=== PATIENT | female | born 1960 | race Caucasian/White ===

== ENCOUNTER 2024-06-14 09:41 | Outpatient (AMB) | payer MEDICARE, OTHER, SELFPAY ==
--- NOTE | 2024-06-14 10:08 | A.OFFVIS_ITS ---
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 The patient injured her shoulder last month when her mother fell onto her. Since that time she has had difficulty lifting her left hand to shoulder height. She has tried physical therapy exercises which aggravated her pain. She has also tried Tylenol and anti-inflammatory medicines which gave her minimal relief. Allergies adhesive tape [ADHESIVE TAPE] Allergy (Intermediate, Unverified 06/14/24 10:13) SKIN SENSITIVITY bupropion [From WELLBUTRIN] Allergy (Intermediate, Unverified 06/14/24 10:13) HIVES ciprofloxacin [From CIPRO] Allergy (Intermediate, Unverified 06/14/24 10:13) ACTIVATES LYCHENS DISEASE metoclopramide [From REGLAN] Allergy (Intermediate, Unverified 06/14/24 10:13) HIVES nizatidine [From AXID] Allergy (Intermediate, Unverified 06/14/24 10:13) HIVES ranitidine [From ZANTAC] Allergy (Intermediate, Unverified 06/14/24 10:13) HIVES sulfamethoxazole [From BACTRIM] Allergy (Intermediate, Unverified 06/14/24 10:13) CONNOLLY ARCENIO SYNDROME trimethoprim [From BACTRIM] Allergy (Intermediate, Unverified 06/14/24 10:13) CONNOLLY ARCENIO SYNDROME ALLEN Allergy (Intermediate, Uncoded 06/14/24 10:13) HIVES Medication List - Last Reconciled 06/14/24 by Roger Daley MD clobetasol 0.025% 1 appl topical ONCE hydroxychloroquine 200 mg PO DAILY irbesartan 75 mg PO DAILY naloxegol (Movantik) 12.5 mg PO DAILY pantoprazole 40 mg PO DAILY perfluorohexyloctane (PF) 100% (Miebo (PF)) drps ophthalmic (eye) topiramate 100 mg PO DAILY varenicline tartrate (Tyrvaya) intranasal Physical Exam Vital Signs: BMI result Body Mass Index 38.1 Const Other: Well-nourished well-developed very friendly female awake alert and oriented x3 in no acute distress Extrem Other: Bilateral upper extremity examination shows good capillary refill, no skin lesions noted, normal sensation light touch Left shoulder examination shows decreased active range of motion but almost full passive range of motion when compared to her right shoulder, 3/5 strength with supraspinatus testing, positive impingement signs, tenderness over her acromioclavicular joint, no instability Results Reviewed Results Reviewed: MRI of the patient's left shoulder show severe acromioclavicular joint narrowing, a type 3 acromion, a full-thickness supraspinatus tendon tear Assessment & Plan Assessment & Plan (1) Rotator cuff insufficiency of left shoulder: Code(s): M25.312 - Other instability, left shoulder Category: Medical Plan Ms. Martin Holland presents with progressively worsening left shoulder pain and weakness due to impingement syndrome, acromioclavicular joint arthritis and a full-thickness rotator cuff tear. I had a lengthy discussion with the patient regarding the treatment options. At this point the patient has failed continued non operative treatments. The risks and benefits of left shoulder surgery were discussed at length with the patient. The patient wishes to proceed with surgery. Surgery will involve left shoulder distal clavicle excision, acromioplasty and rotator cuff repair. The patient will be scheduled for next available date. She will follow up as instructed. Feel free to call me at any time should questions regarding her orthopedic management arise. I spent 21 minutes in reviewing the patient's records and imaging studies, seeing the patient and documenting in the medical record. Coding Level of Care Code New Pt Level 3 (35728) Complex EM visit Add On G2211 Diagnoses Rotator cuff insufficiency of left shoulder M25.312
[2024-06-14 10:12] VITALS: BMI 38.1
--- OUTSIDE RECORDS SUMMARY | 2024-06-14 10:53 | XMS_ITS | Patient Health Record ---
Author Organization [facility] Address [address] [address] Care Team Providers Care Poundmaster Name Role Phone Joan Powers MD Primary Care Provider Unavail able Black, Roxane Unavailable [phone] Allergies Allergen (clinical drug ingredient) Drug/Non Drug Allergy documented on EMR Reaction Allergy Type Onset Date Status Axid Unknown Drug Allergy Active sulfamethoxazole / trimethoprim Bactrim Unknown Drug Allergy Active ciprofloxacin Cipro Unknown Drug Allergy Act ifrah metoclopramide Reglan Unknown Drug Allergy Ac tive Wellbutrin Unknown Drug Allergy Active Zantac Unknown Drug Allergy Active Adhesive Unknown Allergy Active Reason For Referral No Information Medications Medication SIG (Take, Route, Frequency, Duration) Notes Start Date End Date Status Physical Therapy . . . 2-3x/week for 3-4 weeks 06/03/2016 Not-Taking Topamax Not-Taking Linzess 145 MCG Orally Not- Taking Gabapentin 300 MG 1 capsule Orally Three times a day 04/28/2016 Not-Taking ProAir HFA Not-Takin g Reclast Not-Taking Prolia Not-Taking Plaquenil Not-Taking Vitamin D3 Active Calcium Active Ibuprofen 800 MG 1 tablet Orally Three times a day for 14 days 01/06/2016 Not-Taking Hydrocortisone 1 % 1 application to affected area Externally Twice a day to affected areas on feet for 30 days 02/19/2016 Not-Taking Ciclopirox Olamine 0.77% external Apply to effected areas twice a day for 30 days 04/01/2016 Not-Taking Movantik 12.5 MG 1 tablet in the morning Orally Once a day for 30 day(s) Active Vicodin 5-300 MG 1 tablet as needed Orally every 6 hrs 01/06/2016 Not-Taking Hydroxychloroquine Sulfate 200 MG as directed Orally Active Amitiza 24 MCG 1 capsule with food Orally Twice a day Not-Taking Physical Therapy . . . 2-3x/week for 3-4 weeks 02/26/2016 Not-Taking Albuterol Sulfate Ac tive Linaclotide 290 MCG 1 capsule Orally Once a day Not-Taking Arnuity Ellipta Acti ve Osphena 60 MG 1 tablet with food Orally Once a day Not-Taking Topiramate 100 MG 1 tablet Orally Once a day for 30 day(s) Active Nortriptyline HCl 10 MG as directed Orally Active Mitigare 0.6 MG 1 capsule Orally Once a day Not-Taking Walking Boot/Pneumatic As directed Wear Daily for Until further notice 01/16/2016 Not-Taking Vitamin D Not-Taking Social History Tobacco Use: Social History Observation Description Date Details (start date - stop date) Never Smoker NA - NA Tobacco Use/Smoking Question Answer Notes Are you a: nonsmoker Additional Findings: Tobacco Non-User Current no n-smoker Alcohol Screen Question Answer Notes Did you have a drink contain ing alcohol in the past year? Yes How often did you have a dri nk containing alcohol in the past year? Monthly or less (1 point) Points 1 Interpretation Negative Tobacco use other than smoking: Question Answer Notes Are you an other tobacco user? 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) CRPS (complex regional pain syndrome) (G90.50) Active confirmed Plan Of Treatment Pending Test Test Name Order Date X ray : Foot, right 3V 02/19/2016 X ray : Foot, right 3V 04/01/2016 X ray : Foot, right 3V 07/22/2016 X ray : Foot, right 3V 07/23/2021 X ray : Foot, right 3V 08/17/2021 [id number] Plate 07/22/2016 [id number] TENDON SHEATH/LIGAMENT 0 06/17/2016 Insurance Providers Payer Name Payer Address Payer Phone Subscriber Number Group Number Insured Name Patient Relationship to Insured Coverage Start Date Coverage End Date Medicare National [employer] [address] [place] [address] [id number] Salazar KailashHazel andersenn Self - patient is the insured [employer] [address] [address] [place] [address] [id number] SalazarHazel Ervinn Self - patient is the insured Medical (General) History Medical History History ICD Code asthma Hiatal hernia Neuropathy Reflux Sciatica Measles Sleep apnea Anxiety Headaches/Migraines Lyme disease Osteopenia FMF Dysmotility dyskinesia 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
--- OUTSIDE RECORDS SUMMARY | 2024-06-14 10:53 | XMS_ITS | Clinical Summary ---
Author Organization [facility] Address [address] [place] [address] Care Team Providers Care Computer Information Systems Instructor Name Role Phone Joan Powers MD Primary Care Provider [phone] Surgical History Surgery Date Site/Laterality Comments APPENDECTOMY PROCEDURE: AK APPENDECTOMY BUNIONECTOMY PROCEDURE: BUNION SURGERY, SIMPLE REMOVAL OTHER SURGICAL HISTORY PROCEDURE: AK LAPS SURG GASTROSTOMY W/O CONSTJ GSTR TUBE SPX CARPAL TUNNEL RELEASE PROCEDURE: HISTORICAL CARPAL TUNNEL REL HERNIA REPAIR PROCEDURE: HISTORICAL HERNIA REPAIR/FRANCINE ROTATOR CUFF REPAIR PROCEDURE: HISTORICAL ROTATOR CUFF REPAIR Medical History Medical History Date Comments Laryngospasm DX:Laryngospasm Headache, migraine DX:Headache, migraine Asthma DX:Asthma 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 ([facility] V24, [facility] V28) DX: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 ease ([facility]) Bronchitis DX:Bronchitis Vitamin D deficiency DX:Vitamin D deficiency CKD (chronic kidney disease) DX: CKD (chronic kidney disease) Social History Tobacco Use Types Packs/Day Years Used Date Smoking Tobacco: Never Smokeless Tobacco: Never Alcohol Use Standard Drinks/Week Comments No 0 (1 standard drink = 0.6 oz pur e alcohol) Comments Unknown Sex and Gender Information Value Date Recorded Sex Assigned at Not on file Legal Sex Female 4:03 PM EST Gender Identity Not on file Sexual Orientation Not on file Obstetrics History Plan of Treatment Health Maintenance Due Date Last Done Comments Breast Cancer Screening 1958 DTaP,Tdap,and Td Vaccines (1 - Tdap) 1977 Cervical Cancer Screening: P ap Smear 10/23/1979 Pneumococcal Vaccine: 50+ Ye ars (1 of 1 - PCV) 2008 Zoster Vaccines (1 of 2) 2008 Colorectal Cancer Screening: Colonoscopy 02/03/2022 Depression Screening 02/03/2022 Hepatitis C Screening 02/03/2022 Osteoporosis Screening (Bone Density Screening) 02/03/2022 Social Influencers of Health Screening 02/03/2022 Falls Risk Assessment 10/23/2023 COVID-19 Vaccine (1 - 2023-2 5 season) 2023 Influenza Vaccine (Season Ended) 2024 RSV Immunization Adult Patie nts (1 - 1-dose 75+ series) 2033 HIB Vaccines Aged Out No longer eligi ble based on patient's age to complete this topic HPV Vaccines Aged Out No longer eligi ble based on patient's age to complete this topic Hepatitis A Vaccines Aged Out No long er eligible based on patient's age to complete this topic Hepatitis B Vaccines Aged Out No long er eligible based on patient's age to complete this topic IPV Vaccines Aged Out No longer eligi ble based on patient's age to complete this topic MMR Vaccines Aged Out No longer eligi ble based on patient's age to complete this topic Meningococcal ACWY Vaccine Aged Out N o longer eligible based on patient's age to complete this topic Meningococcal B Vaccine Aged Out No l onger eligible based on patient's age to complete this topic Pneumococcal Vaccine: Pediat rics (0 to 5 Years) and At-Risk Patients (6 to 64 Years) Aged Out No longer eligible b ased on patient's age to complete this topic RSV Immunization Patients Un angeli 20 months Aged Out No longer eligible b ased on patient's age to complete this topic Varicella Vaccines Aged Out No longer eligible based on patient's age to complete this topic Advance Directives Documents on File Type Date Recorded 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
--- OUTSIDE RECORDS SUMMARY | 2024-06-14 10:54 | XMS_ITS ---
Author Name [facility] Organization Unknown Encounters Encounter Type Encounter Reason Primary Diagnosis Location Date Ambulatory [facility] [place] 06/08/2024 Ambulatory [facility] [place] 06/08/2024 Ambulatory [facility] [place] 06/08/2024 Ambulatory [facility] [place] 06/08/2024
--- OUTSIDE RECORDS SUMMARY | 2024-06-14 10:54 | XMS_ITS | Clinical Summary ---
Author Organization [facility] Address [address] [place] [phone] Phone Care Team Providers Care Proc Tech Name Role Phone Oscar Powers MD Primary Care Provider [phone] Allergies Active Allergy Reactions Criticality Noted Date Comments Nizatidine Hives 12/21/2022 Ciprofloxacin 12/21/2022 Metoclopramide Hcl Hives 12/21/2022 Sulfa (Sulfonamide Antibiotics) 12/05 Bupropion Hcl Hives 12/21/2022 Ranitidine Hcl Hives 12/21/2022 Medications Medication Sig Dispensed Refills Start Date End Date Status ramipriL (ALTACE) 2.5 MG capsule Take 1 capsule by mouth daily. 12/20/2022 Active topiramate (TOPAMAX) 100 MG tablet Take 1 tablet by mouth every morning. 12/07/2022 Active TYRVAYA 0.03 mg/spray sprm ONE SPRAY INTO EACH NOSTRIL TWICE A DAY 10/20/2022 Active MOVANTIK 12.5 mg tablet Take 12.5 mg by mouth every morning. 12/07/2022 Active albuterol 90 mcg/actuation inhaler Inhale 2 puffs into the lungs every 6 (six) hours as needed for wheezing. Active fluticasone furoate (ARNUITY ELLIPTA INHL) Inhale into the lungs. Active cholecalciferol (VITAMIN D3) 3,000 unit tablet Take 6,000 Units by mouth daily. Active acetaminophen (TYLENOL) 500 MG tablet Take 500 mg by mouth every 6 (six) hours as needed for pain (specific location in comments). Active hydroxychloroquine (PLAQUENIL) 200 mg tabletIndications:Fami lial Mediterranean fever TAKE 1 TABLET BY MOUTH EVERY MORNING. 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 Eye exams current and normal. She has no active symptoms. Reviewed labs from December 20 with a normal creatinine hemoglobin of 13.5 and a normal vitamin D. Primary osteoarthritis involving multiple joints 01/11/2023 Assessment & Plan (01/17/2023 1:45 PM EST): Osteoarthritis in multiple joints with stiffness but no swelling. She can continue with Tylenol 500 mg as needed. Advised her to remain active to maintain her stamina and mobility. Encounters Date Type Department Care Team Description 03/20/2024 Refill [facility] Rheumatology [address] [place] [address] Toni Jennings MD Medication Refill from Last 3 Months Family History Medical History Relation Comments Thyroid disease Father Relation Status Comments Father Social History Tobacco Use Types Packs/Day Years Used Date Smoking Tobacco: Never Smokeless Tobacco: Never Tobacco Cessation:Counseling Given: Not Answered Alcohol Use Standard Drinks/Week Comments Not Currently 0 (1 standard drink = 0.6 oz pur e alcohol) rarely Education Answer Date Recorded Are you interested in more education? Not on kenny e 09/21/2022 Are you concerned about learning? Not on file 09/21/2022 No 09/21/2022 No 09/21/2022 Digital Access Answer Date Recorded No 09/21/2022 No 09/21/2022 Reliable internet access at home? Not on file 09/21/2022 Device with a working camera? Not on file Sex and Gender Information Value Date Recorded Sex Assigned at Not on file Gender Identity Not on file Sexual Orientation Not on file Last Filed Vital Signs Vital Sign Reading Time Taken Comments Blood Pressure 118/66 01/11/2023 2:08 PM EST Pulse 82 01/11/2023 2:08 PM EST Temperature - - Respiratory Rate - - Oxygen Saturation 98% 01/11/2023 2:08 PM EST Inhaled Oxygen Concentration - - Weight 65.8 kg (145 lb) 01/11/2023 2:08 PM EST Height 152 cm (4' 11.84 ) 01/11/2023 2:08 PM EST Body Mass Index 28.47 01/11/2023 2:08 PM EST Plan of Treatment Upcoming Encounters Date Type Department Care Team (Late st Contact Info) Description 06/18/2024 2:00 PM EDT Office Visit [facility] Rheumatology [address] [place] [address] Rodolfo Burt MD [address] [place] [address] [email or web address] Health Maintenance Due Date Last Done Comments Adult Td,Tdap Booster 1960 CREATININE LEVEL 1958 LIPID PANEL 1958 POTASSIUM LEVEL 1958 DEPRESSION SCREENING 1970 HEPATITIS C SCREENING 1976 HIV ONE-TIME SCREENING (18-6 5 YEARS) 1976 SCREENING FOR DIABETES 1993 MAMMOGRAM 1998 COLOGUARD 10/23/2003 COLONOSCOPY 10/23/2003 COLORECTAL CANCER SCREENING 10/23/2003 FIT TEST 10/23/2003 FOBT 10/23/2003 SIGMOIDOSCOPY 10/23/2003 VIRTUAL COLONOSCOPY 10/23/2003 PNEUMOCOCCAL VACCINES (50+ years) (1 of 1 - PCV) 2008 ZOSTER VACCINES (1 of 2) 2008 INFLUENZA VACCINE (#1) 2023 3, 01/25/2022, 12/10/2019 OSTEOPOROSIS SCREENING INITI AL (ONE-TIME) 10/23/2023 COVID-19 VACCINE (4 - 2023-2 5 season) 2023 02/17/2021, 05/18/2020, 04/20/2020 RSV VACCINE (1 - 1-dose 75+ series) 2033 SMOKING STATUS SCREENING (On ce After 26 Yrs) Completed 01/11/2023 HEPATITIS A VACCINES Aged Out No long er eligible based on patient's age to complete this topic HIB VACCINES Aged Out No longer eligi ble based on patient's age to complete this topic MENINGOCOCCAL VACCINES (ACWY) Aged Out No longer eligible based on patient's age to complete this topic Medical Devices Not on file Care Teams Proc Tech Relationship Specialty Start Date End Date Oscar Powers MD [address] [place] [id number] [email or web address] PCP - General Internal Medicine 09/21/22 Additional Source Comments The information contained in this document represents components of the legal health record. It is not the complete legal health record.[facility]
--- OUTSIDE RECORDS SUMMARY | 2024-06-14 10:54 | XMS_ITS | Patient Health Record ---
Author Organization [facility] Address [address] [place] [phone] Care Team Providers Care Procurement Engineer Name Role Phone Joan Jeffries Primary Care Provider Ella Olsen Unavailable [phone] Allergies Allergen (clinical drug ingredient) Drug/Non Drug Allergy documented on EMR Reaction Allergy Type Onset Date Status ciprofloxacin Cipro Unknown Drug Allergy Act ifrah metoclopramide Reglan Unknown Drug Allergy Ac tive Wellbutrin Unknown Drug Allergy Active Axid Unknown Drug Allergy Active ramipril Ramipril Cough Drug Allergy 03/09/2023 Active Sulfamethoxazole ?[place] Syndrome? Drug Allergy Active trimethoprim Trimethoprim ?[place]ons Syndrome? Drug Allergy Active Zinc Unknown Drug Allergy Inactiv e Results Component Value Reference Range Notes NM Bone and/or Joint Whole B kourtney Reviewed date:06/07/2024 01:27:45 PM Interpretation: Performing Lab: Notes/Report: Exam: NM Whole Body Bone Scan History: Multiple rib fractures Technique: Three hours following the intravenous administration of 25.2 mCi of Tc99m medronate, whole body imaging in the anterior and posterior views were performed. Additional lateral views of the skull, oblique views of the chest, and oblique views the pelvis were also performed. Comparison studies: None Findings: There is focal increased activity within the left mandible likely related to dental disease. Focal increased activity within the anterior cervical spine and bilateral shoulder joints suggesting degenerative changes. There is focal increased activity within the left anterior fourth rib suggesting acute fracture. Additional mild increased activity noted within the left anterior seventh rib suggesting subacute to chronic healed fracture. Mild increased activity within the facet joints and the L5-S1 level suggesting degenerative changes. Mild increased activity within the right hand medial right knee, left mid foot and right first metatarsophalangeal joint suggesting degenerative changes. IMPRESSION: Acute left anterior fourth rib fracture. Likely subacute to chronic healing left anterior seventh rib fracture. Degenerative changes. WSN: [id number] Ordering Physician: Joan Jeffries Dictated By: Clovis Childs MD Exam: NM Whole Body Bone Scan History: Multiple ri b fractures Technique: Three ubaldo rs following the intravenous administration of 25.2 mCi of Tc99m medronate, who le body imaging in the anterior and posterior views were performed. Additiona l lateral views of the skull, oblique views of the chest, and oblique views th e pelvis were also performed. Comparison studies: None Findings: There is focal incre ased activity within the left mandible likely related to dental disease. Focal increased acti vity within the anterior cervical spine and bilateral shoulder joints suggesting degenerative changes. There is focal increased activity within the left anterior fourth rib suggesting acute fracture. Additional mild incr eased activity noted within the left anterior seventh rib suggesting subacute to chronic healed fracture. Mild increased activ ity within the facet joints and the L5-S1 level suggesting degenerative changes . Mild increased activity within the right hand medial right knee, left mid foot and right first metatarsophalangeal joint suggesting degenerative changes. IMPRESSION: Acute left anterior fourth rib fracture. Likely subacute to chronic healing left anterior seventh rib fracture. Degenerative changes. WSN: [id number] Ordering Physician: Joan Jeffries Urinalysis, Complete-[id number] Reviewed date:12/28/2023 06:26:36 PM Interpretation: Performing Lab:Pasquale King, [address] [facility] [place], [place], Phone - [phone], Director - Becky Notes/Report: Specific [place] 1.020 1.005-1.030 pH 5.5 5.0-7.5 Urine-Color Yellow Yellow Appearance Clear Clear WBC Esterase Negative Negative Protein Negative Negative/Trace Glucose Negative Negative Ketones Negative Negative Occult Blood Negative Negative Bilirubin Negative Negative Urobilinogen,Semi-Qn 0.2 0.2-1.0 mg/dL Nitrite, Urine Negative Negative Microscopic Examination Micr oscopic follows if indicated. Microscopic Examination See below: Micr oscopic was indicated and was performed. WBC None seen 0 - 5 /hpf RBC 0-2 0 - 2 /hpf Epithelial Cells (non renal) 0-10 0 - 10 /hpf Casts None seen None seen /lpf Bacteria None seen None seen/Few Vitamin D, [id number] Reviewed date:12/28/2023 06:26:36 PM Interpretation: Performing Lab:Pasquale King, [address] [facility], Phone - [phone], Director - Becky Notes/Report: Vitamin D, 25-Hydroxy 49.2 30.0-100.0 ng/mL Vitamin D deficiency has been defined by the Walsh of Medicine and an Endocrine Society practice guideline as a level of serum 25-OH vitamin D less than 20 ng/mL (1,2). The Endocrine Society went on to further define vitamin D insufficiency as a level between 21 and 29 ng/mL (2). 1. IOM ([place] of Medicine). 2010. Dietary reference intakes for calcium and D. [place]: The National Academies Press. 2. Carla MF, Neri NC, Michelle MCLEOD, et al. Evaluation, treatment, and prevention of vitamin D deficiency: an Endocrine Society clinical practice guideline. JCEM. 2010; 96(7):1911-30. Albumin/Creatinine Ratio,Uri ne-[id number] Reviewed date:12/28/2023 06:26:36 PM Interpretation: Performing Lab:Pasquale King, [place] [facility], Phone - [phone], Director - Becky Notes/Report: Creatinine, Urine 139.8 Not Estab. mg/dL Albumin, Urine 6.1 Not Estab. ug/mL Alb/Creat Ratio 4 0-29 mg/g creat Normal: 0 - 29 Moderately increased: 30 - 300 Severely increased: >300 Comp. Metabolic Panel (14)-3 Reviewed date:12/28/2023 06:26:36 PM Interpretation: Performing Lab:[facility] Fernando, [address] [facility] [place], [place], Phone - [phone], Director - Becky Notes/Report: Glucose 97 70-99 mg/dL BUN 13 8-27 mg/dL Creatinine 0.88 0.57-1.00 mg/dL eGFR 73 >59 mL/min/1.73 BUN/Creatinine Ratio 15 12-28 Sodium 144 134-144 mmol/L Potassium 3.9 3.5-5.2 mmol/L Chloride 106 96-106 mmol/L Carbon Dioxide, Total 21 20-29 mmol/L Calcium 9.4 8.7-10.3 mg/dL Protein, Total 6.3 6.0-8.5 g/dL Albumin 4.4 3.9-4.9 g/dL Globulin, Total 1.9 1.5-4.5 g/dL Bilirubin, Total 0.3 0.0-1.2 mg/dL Alkaline Phosphatase 100 44-121 IU/L AST (SGOT) 21 0-40 IU/L ALT (SGPT) 20 0-32 IU/L LP+Non-HDL Cholesterol-[id number] 5 Reviewed date:12/28/2023 06:26:36 PM Interpretation: Performing Lab:Pasquale King, [address] [facility], Phone - [phone], Director - Bekcy Notes/Report: Cholesterol, Total 234 100-199 mg/dL Triglycerides 78 0-149 mg/dL HDL Cholesterol 78 >39 mg/dL VLDL Cholesterol Shay 13 5-40 mg/dL LDL Chol Calc (NIH) 143 0-99 mg/dL Non-HDL Cholesterol 156 0-129 mg/dL Urinalysis, Complete-[id number] Reviewed date:07/06/2023 08:08:49 AM Interpretation: Performing Lab:Pasquale King, [address] [facility], Phone - [phone], Director - Becky Notes/Report: Specific [place] 1.020 1.005-1.030 pH 5.5 5.0-7.5 Urine-Color Yellow Yellow Appearance Clear Clear WBC Esterase Negative Negative Protein Negative Negative/Trace Glucose Negative Negative Ketones Negative Negative Occult Blood Negative Negative Bilirubin Negative Negative Urobilinogen,Semi-Qn 0.2 0.2-1.0 mg/dL Nitrite, Urine Negative Negative Microscopic Examination Micr oscopic follows if indicated. Microscopic Examination See below: Micr oscopic was indicated and was performed. WBC None seen 0 - 5 /hpf RBC None seen 0 - 2 /hpf Epithelial Cells (non renal) None seen 0 - 10 /hpf Casts None seen None seen /lpf Bacteria None seen None seen/Few CBC With Differential/Platel et-[id number] Reviewed date:07/06/2023 08:08:49 AM Interpretation: Performing Lab:Pasquale King, [address] [facility] [place], [place], Phone - [phone], Director - Becky Notes/Report: WBC 6.8 3.4-10.8 x10E3/uL RBC 4.40 3.77-5.28 x10E6/uL Hemoglobin 13.8 11.1-15.9 g/dL Hematocrit 40.9 34.0-46.6 % MCV 93 79-97 fL MCH 31.4 26.6-33.0 pg MCHC 33.7 31.5-35.7 g/dL RDW 12.9 11.7-15.4 % Platelets 264 150-450 x10E3/uL Neutrophils 70 Not Estab. % Lymphs 22 Not Estab. % Monocytes 6 Not Estab. % Eos 1 Not Estab. % Basos 1 Not Estab. % Neutrophils (Absolute) 4.7 1.4-7.0 x10E3/uL Lymphs (Absolute) 1.5 0.7-3.1 x10E3/uL Monocytes(Absolute) 0.4 0.1-0.9 x10E3/uL Eos (Absolute) 0.1 0.0-0.4 x10E3/uL Baso (Absolute) 0.1 0.0-0.2 x10E3/uL Immature Granulocytes 0 Not Estab. % Immature Grans (Abs) 0.0 0.0-0.1 x10E3/uL Vitamin D, 04-Yonfpos-[id number] Reviewed date:07/06/2023 08:08:49 AM Interpretation: Performing Lab:[facility], [address] [place] [address], [place], Phone - [phone], Director - Becky Notes/Report: Vitamin D, 25-Hydroxy 42.2 30.0-100.0 ng/mL Vitamin D deficiency has been defined by the Walsh of Medicine and an Endocrine Society practice guideline as a level of serum 25-OH vitamin D less than 20 ng/mL (1,2). The Endocrine Society went on to further define vitamin D insufficiency as a level between 21 and 29 ng/mL (2). 1. IOM ([place] of Medicine). 2010. Dietary reference intakes for calcium and D. [place]: The National Academies Press. 2. Carla MF, Neri NC, Michelle MCLEOD, et al. Evaluation, treatment, and prevention of vitamin D deficiency: an Endocrine Society clinical practice guideline. JCEM. 2010; 96(7):1911-30. Comp. Metabolic Panel (14)-3 [id number] Reviewed date:07/06/2023 08:08:49 AM Interpretation: Performing Lab:[facility], [place] [facility], Phone - [phone], Director - Becky Notes/Report: Glucose 84 70-99 mg/dL BUN 13 8-27 mg/dL Creatinine 0.85 0.57-1.00 mg/dL eGFR 76 >59 mL/min/1.73 BUN/Creatinine Ratio 15 12-28 Sodium 142 134-144 mmol/L Potassium 4.2 3.5-5.2 mmol/L Specimen received hemolyzed. Value may be increased by hemolysis. Clinical correlation indicated. Chloride 105 96-106 mmol/L Carbon Dioxide, Total 22 20-29 mmol/L Calcium 9.4 8.7-10.3 mg/dL Protein, Total 6.6 6.0-8.5 g/dL Albumin 4.5 3.9-4.9 g/dL Globulin, Total 2.1 1.5-4.5 g/dL A/G Ratio 2.1 1.2-2.2 Bilirubin, Total 0.3 0.0-1.2 mg/dL Alkaline Phosphatase 93 44-121 IU/L AST (SGOT) 22 0-40 IU/L ALT (SGPT) 18 0-32 IU/L LP+Non-HDL Cholesterol-[id number] 5 Reviewed date:07/06/2023 08:08:50 AM Interpretation: Performing Lab:[facility] Fernando, [place] [facility], Phone - [phone], Director - Freddyy Notes/Report: Cholesterol, Total 252 100-199 mg/dL Triglycerides 79 0-149 mg/dL HDL Cholesterol 81 >39 mg/dL VLDL Cholesterol Shay 13 5-40 mg/dL LDL Chol Calc (NIH) 158 0-99 mg/dL Non-HDL Cholesterol 171 0-129 mg/dL HCV Antibody-[id number] Reviewed date:07/06/2023 08:08:50 AM Interpretation: Performing Lab:[facility] Fernando, [address] [facility] [place], [place], Phone - [phone], Director - Mahameddry Notes/Report: Hep C Virus Ab Non Reactive Non Reactive HCV antibody alone does not differentiate between previously resolved infection and active infection. Equivocal and Reactive HCV antibody results should be followed up with an HCV RNA test to support the diagnosis of active HCV infection. PDF Report Reviewed date:07/06/2023 08:08:50 AM Interpretation: Performing Lab:Pasquale King, [address] [facility] [place], [place], Phone - [phone], Director - Becky Notes/Report: MM Digital Mammo Screening Reviewed date:01/10/2024 06:08:47 PM Interpretation: Performing Lab: Notes/Report: PROCEDURE: MM Digital Mammo Screening INDICATION: Screening for breast cancer. No known palpable abnormalities. COMPARISON: [facility] dating back to 12/12/2020. TECHNIQUE: Full-field digital CC and MLO 3D tomosynthesis images of both breasts were acquired. Computer-aided detection (CAD) was utilized in the interpretation of this study. DENSITY: There are scattered areas of fibroglandular density. FINDINGS: No suspicious masses, suspicious microcalcifications, or areas of architectural distortion are seen in either breast to suggest malignancy. IMPRESSION: No mammographic evidence of malignancy. RECOMMENDATION: Annual mammographic screening BI-RADS: 1 (Negative) Lay letter mailed to patient WSN: [id number] Ordering Physician: Joan Jeffries Dictated By: Katie Rico MD, I PROCEDURE: MM Digita l Mammo Screening INDICATION: Screenin g for breast cancer. No known palpable abnormalities. COMPARISON: [facility] heather ing back to 12/12/2020. TECHNIQUE: Full-fiel d digital CC and MLO 3D tomosynthesis images of both breasts were acquired. Computer-aided detection (CAD) was utilized in the interpretation of this study. DENSITY: There are scattered areas of fibroglandular density. FINDINGS: No suspici ous masses, suspicious microcalcifications, or areas of architectural distor tion are seen in either breast to suggest malignancy. IMPRESSION: No mammographic evidence of malignancy. RECOMMENDATION: Julia al mammographic screening BI-RADS: 1 (Negative) Lay letter mailed to patient WSN: [id number] Ordering Physician: Joan Jeffrise Dexa Bone Density (Axial) Reviewed date:01/18/2024 08:35:09 AM Interpretation: Performing Lab: Notes/Report: Name:VIKTORIA LINDER Age:63 years Sex:Female Ethnicity:White Date of :1960 Reason: Z78.0 POSTMENOPAUSAL; Clinical Question(s): Other: Referring Provider:Joan Jeffries Study:Dexa Bone Density (Axial) Bone Density: Region BMD T-Score Z-Score Classification AP Spine 0.901 -1.3 0.4 Osteopenia TOTAL HIP 0.798 -1.2 0.0 Osteopenia FEM NECK 0.606 -2.2 -0.7 Osteopenia 10-year Fracture Risk: 1 FRAX(R) Version 3.08. Fracture probability calculated for an untreated patient. Fracture probability may be lower if the patient has received treatment. Major Osteoporotic Fracture 31% Hip Fracture 3.5% RATE OF CHANGE(SPINE): BMD values have decreased1.0% from previous BMD values have increased 1.1% from baseline RATE OF CHANGE(TOTAL HIP): BMD values have decreased 0.8% from previous BMD values have decreased 1.3% from baseline RATE OF CHANGE(FEMORAL NECK): BMD values have decreased 4.9% from previous BMD values have increased 3.0% from baseline Impression: The patient has osteopenia as determined by WHO criteria. WSN: [id number] Ordering Physician: Joan Jeffries Dictated By: Blake Hartman MD Name:VIKTORIA LINDER Age:63 years Sex:Female Ethnicity:White Date of :1960 Reason: Z78.0 POSTMENOPAUSAL; Clinical Question(s): Other: Referring Provider:Joan Jeffries Study:Dexa Bone Dens ity (Axial) Bone Density: Region BMD T-Score Z-Score Classification AP Spine 0.901 -1.3 0.4 Osteopenia TOTAL HIP 0.798 -1.2 0.0 Osteopenia FEM NECK 0.606 -2.2 -0.7 Osteopenia 10-year Fracture Risk: 1 FRAX(R) Version 3. 08. Fracture probability calculated for an untreated patient. Fracture probability may be lower if the patient has received treatment. Major Osteoporotic Fracture 31% Hip Fracture 3.5% RATE OF CHANGE(SPINE): BMD values have decreased1.0% from previous BMD values have incr eased 1.1% from baseline RATE OF CHANGE(TOTAL HIP): BMD values have decr eased 0.8% from previous BMD values have decr eased 1.3% from baseline RATE OF CHANGE(FEMOR AL NECK): BMD values have decr eased 4.9% from previous BMD values have incr eased 3.0% from baseline Impression: The patient has osteopenia as determined by WHO criteria. WSN: [id number] Ordering Physician: Joan Jeffries T/L Spine 1 View Reviewed date:07/06/2023 08:08:50 AM Interpretation: Performing Lab: Notes/Report: Original Ordering Provider: JOAN JEFFRIES MD [facility] Chest Routine 2 Views Reviewed date:05/23/2024 06:06:48 AM Interpretation: Performing Lab: Notes/Report: MR Shoulder LT WO Reviewed date:06/07/2024 01:27:45 PM Interpretation: Performing Lab: Notes/Report: Dexa Bone Density (Axial) Reviewed date:01/20/2024 09:26:49 AM Interpretation: Performing Lab: Notes/Report: NM Bone Scan Three Phase Reviewed date:06/14/2024 10:46:13 AM Interpretation: Performing Lab: Notes/Report: Reason For Referral Reason Fourth and seventh l eft anterior rib fractures noted. Patient has had these fractures since early May and is having continued pain and would like further consult with thoracic surgery faxed Diagnosis 1 Multiple fractures o f ribs, left side, sequela (S22.42XS) Referral Organization [facility] Referring Provider First Name Joan Referring Provider Last Name Gio Referring Provider Speciality Internal M edicine Referred Provider Dangelo Woo Referred Provider Specialty Thoracic Yasmin daylin General Notes Jes JEWELL 05/2024 03:07:16 PM >faxed Referral Priority Routine Reason Supraspinatus tendon tear faxed Diagnosis 1 Incomplete rotator c uff tear or rupture of left shoulder, not specified as traumatic (M75.112) Referral Organization [facility] Referring Provider First Name Joan Referring Provider Last Name Gio Referring Provider Speciality Internal M edicine Referred Provider Roger Daley Referred Provider Specialty Orthopedic S urgery General Notes Jes JEWELL 05/2024 03:07:47 PM >faxed, Jes JEWELL 06/08/2024 09:03:37 AM >updated Dr. Daley fax number and refaxed Referral Priority Routine Medications Medication SIG (Take, Route, Frequency, Duration) Notes Start Date End Date Status Irbesartan 75 MG TAKE 1 TABLET BY ALLISON TH EVERY DAY for 90 Active Restasis 0.05 % 1 drop into affected eye Ophthalmic Twice a day Not-Takin g Airsupra 90-80 MCG/ACT 2 puffs as needed Inhalation Six times a day for 10 days Max 6 times a day Not-Taking Probiotic Active Vitamin D 1000 UNIT 6 capsule Orally Onc e a day Active Arnuity Ellipta 200 MCG/ACT 1 puff Inhalation Once a day Active Plaquenil 200 MG 1 tablet with food o r milk Orally Once a day for 10 day(s) Active Movantik 12.5 MG TAKE 1 TABLET BY ALLISON TH EVERY MORNING for 30 Active Topiramate 100 MG TAKE 1 TABLET BY ALLISON TH ONCE DAILY for 90 Active Tyrvaya 0.03 MG/ACT SPRAY 1 SPRAY INTO E ACH NOSTRIL TWICE A DAY for 60 Active Immunizations Vaccine Route Administration Date Status Comme nts PRJOW-77-Levkhor Vaccine Unknown 04/20/2020 Administere d IESQV-38-Bkcnnsf Vaccine Unknown 05/18/2020 Administere d BSJLS-12-Syjabpf Vaccine Unknown 02/17/2021 Administere d *Influenza-Quadrivalent IM Intramuscular 12/20/2022 Admini stered *Influenza-Medicare-AS IM Intramuscular 12/06/2018 Adminis tered *Influenza-Medicare-AS IM Intramuscular 01/25/2022 Adminis tered *Ffxdrfmao-Fbqyulx-Xdfn Dose-65+ IM Intramuscular 12/27/2023 Administered Influenza, seasonal, injectable, preservative free, 4 yrs and above IM Intramuscular 02/12/2016 Administered Miqipmvvf-7139-06 Afluria-Single IM Intramuscular 12/19/2017 Administered Kzlverkvb-8690-99 Afluria-Single Unknown 12/10/2019 Administered Influenza-Afluria (IIV4) IM Intramuscular 12/21/2016 Admin istered Pneumococcal polysaccharide PPV23 IM Intramuscular 06/22/2016 Administered Td (adult) preservative free Unknown 12/05/2000 Administered Td (adult) preservative free Unknown 04/28/2010 Administered Td (adult) preservative free IM Intramuscular 05/25/2019 Administered Social History Tobacco Use: Social History Observation Description Date Details (start date - stop date) Never Smoker NA - NA AUDIT-C (Standard) Question Answer Notes Did you have a drink containing alcohol in the p ast year? No Points 0 Interpretation Negative Tobacco Control (Standard) Question Answer Notes Tobacco use: Nonsmoker Problems Problem Type SNOMED Code ICD Code Onset Dates Problem Status W/U Status Risk Notes Problem Vitamin D deficiency (88782491) Vitamin D deficiency, unspecified (E55.9) Active confirmed Problem Mixed hyperlipidemia (719163539) Mixed hyperlipidemia (E78.2) Active confirmed Problem Chronic migraine without aura, non-intractable (821816131802570) Chronic migraine without aura, not intractable, without status migrainosus (G43.709) Active confirmed Problem Obstructive sleep apnea syndrome (45078044) Obstructive sleep apnea (adult) (pediatric) (G47.33) Active confirmed Problem Carpal tunnel syndrome (49491812) Carpal tunnel syndrome, unspecified upper limb (G56.00) Active confirmed Problem Sensorineural hearing loss of bilateral ears (disorder) (306482360) Sensorineural hearing loss, bilateral (H90.3) Active confirmed Problem Chronic kidney disease due to hypertension (456253504585136) Hypertensive chronic kidney disease with stage 1 through stage 4 chronic kidney disease, or unspecified chronic kidney disease (I12.9) Active confirmed Problem Orthostatic hypotension (84309486) Orthostatic hypotension (I95.1) Active confirmed Problem Mild intermittent asthma (707574957) Mild intermittent asthma, uncomplicated (J45.20) Active confirmed Problem Dyskinesia of esophagus (67708335) Dyskinesia of esophagus (K22.4) Active confirmed Problem Functional disorder of intestine (65865635) Functional intestinal disorder, unspecified (K59.9) Active confirmed Problem Polyarthritis (145490306) Polyarthritis, unspecified (M13.0) Active confirmed Problem Acquired hallux valgus (11430623) Hallux valgus (acquired), right foot (M20.11) Active confirmed Problem Non-traumatic partial tear of left rotator cuff (7175267947095185) Incomplete rotator cuff tear or rupture of left shoulder, not specified as traumatic (M75.112) Active confirmed Problem Osteoporosis (00176376) Other osteoporosis without current pathological fracture (M81.8) Active confirmed Problem Chronic kidney disease stage 2 (320842185) Chronic kidney disease, stage 2 (mild) (N18.2) Active confirmed Problem Family history of malignant neoplasm of gastrointestinal tract (615244091) Family history of malignant neoplasm of digestive organs (Z80.0) Active confirmed Problem Family history of malignant neoplasm of breast (743974962) Family history of malignant neoplasm of breast (Z80.3) Active confirmed Problem Gastrostomy present (483113976) Gastrostomy status (Z93.1) Active confirmed Problem 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 Problem Gastroesophageal reflux disease with esophagitis (disorder) (036640967) Gastro-esophageal reflux disease with esophagitis, without bleeding (K21.00) Active confirmed Vital Signs Heart Rate 82 /min 05/17/2024 Temperature 97.0 degrees Fahrenheit 05/17/2024 Blood pressure diastolic 70 mm Hg 12/27/2023 Oximetry 96 % 05/17/2024 Height 59.75 in 05/17/2024 Blood pressure systolic 118 mm Hg 12/27/2023 Weight 147.4 lbs 05/17/2024 BMI 29.03 kg/m2 05/17/2024 Encounters Encounter Location Date Provider Diagnosis Joan JOHNSTON [address] [place] [address] [id number] 07/06/2023 Joan Jeffries MD [address] [id number] 01/02/2024 Joan Jeffries MD [address] [id number] 05/23/2024 Joan Jeffries Multiple fractures o f ribs, unspecified side, initial encounter for closed fracture S22.49XA Joan JOHNSTON [address] [place] [address] [id number] 06/07/2024 Joan Jeffries Multiple fractures o f ribs, left side, sequela S22.42XS and Incomplete rotator cuff tear or rupture of left shoulder, not specified as traumatic M75.112 Joan JOHNSTON [address] [place] [address] [id number] 06/08/2024 Joan Jeffries MD [address] [id number] 05/17/2024 Ella Olsen Muscle spasm of back M62.830 ; Sprain of left rotator cuff capsule, initial encounter S43.422A and Other chest pain R07.89 Joan JOHNSTON [address] [place] [address] [id number] 12/27/2023 Joan Jeffries Hypertensive chronic kidney disease with stage 1 through stage 4 chronic kidney disease, or unspecified chronic kidney disease I12.9 ; Chronic kidney disease, stage 2 (mild) N18.2 ; Mild intermittent asthma, uncomplicated J45.20 ; Periodic fever syndromes M04.1 ; Functional intestinal disorder, unspecified K59.9 ; Dyskinesia of esophagus K22.4 ; Gastrostomy status Z93.1 ; Obstructive sleep apnea (adult) (pediatric) G47.33 ; Chronic migraine without aura, not intractable, without status migrainosus G43.709 ; Mixed hyperlipidemia E78.2 ; Gastro-esophageal reflux disease with esophagitis, without bleeding K21.00 ; Vitamin D deficiency, unspecified E55.9 ; Mild intermittent asthma with (acute) exacerbation J45.21 and Encounter for immunization Z23 Joan Jeffries MD [address] [id number] 06/27/2023 Joan Jeffries Hypertensive chronic kidney disease with stage 1 through stage 4 chronic kidney disease, or unspecified chronic kidney disease I12.9 ; Encounter for general adult medical examination without abnormal findings Z00.00 ; Chronic kidney disease, stage 2 (mild) N18.2 ; Mild intermittent asthma, uncomplicated J45.20 ; Periodic fever syndromes M04.1 ; Functional intestinal disorder, unspecified K59.9 ; Dyskinesia of esophagus K22.4 ; Gastrostomy status Z93.1 ; Obstructive sleep apnea (adult) (pediatric) G47.33 ; Chronic migraine without aura, not intractable, without status migrainosus G43.709 ; Mixed hyperlipidemia E78.2 ; Gastro-esophageal reflux disease with esophagitis, without bleeding K21.00 ; Family history of malignant neoplasm of breast Z80.3 ; Family history of malignant neoplasm of digestive organs Z80.0 ; Vitamin D deficiency, unspecified E55.9 ; Encounter for screening for malignant neoplasm of colon Z12.11 ; Encounter for screening mammogram for malignant neoplasm of breast Z12.31 ; Encounter for screening for osteoporosis Z13.820 ; Encounter for screening for cardiovascular disorders Z13.6 ; Encounter for immunization Z23 ; Encounter for antibody response examination Z01.84 ; Encounter for screening for other viral diseases Z11.59 ; Asymptomatic menopausal state Z78.0 ; Sensorineural hearing loss, bilateral H90.3 and Other chest pain R07.89 Assessments Encounter Date Diagnosis (ICD Code) Assessment Notes Treatment Notes Treatment Clinical Notes Section Notes 06/27/2023 Hypertensive chronic kidney disease with stage 1 through stage 4 chronic kidney disease, or unspecified chronic kidney disease (ICD-10 - I12.9) Stable with current medical therapy without any ill side effects. Her outpatient blood pressure results are also attached as an image to the chart. Continue current medical therapy 06/27/2023 Encounter for general adult medical examination without abnormal findings (ICD-10 - Z00.00) General healthcare up-to-date. Check routine labs 05/17/2024 Sprain of left rotator cuff capsule, initial encounter (ICD-10 - S43.422A) Discussed with patient her previous fall at the beginning of May as well as her inability to lift her left shoulder status post fall. Suspect that patient may have rotator cuff injury and patient agreeable to complete an MRI of her left shoulder given her weakness and inability to move her shoulder. Patient aware to follow-up with any new or worsening symptoms while we wait for MRI of the left shoulder. 05/23/2024 Multiple fractures of ribs, unspecified side, initial encounter for closed fracture (ICD-10 - S22.49XA) 06/07/2024 Incomplete rotator cuff tear or rupture of left shoulder, not specified as traumatic (ICD-10 - M75.112) 06/07/2024 Multiple fractures of ribs, left side, sequela (ICD-10 - S22.42XS) 05/17/2024 Muscle spasm of back (ICD-10 - M62.830) Reviewed with patient the fall that she sustained at the beginning of May while catching her mother. Patient did not seek medical help or urgent care while in [place] and states that the pain has been persistent in her left shoulder, upper back, and left-sided chest. Discussed with patient the findings of muscle spasms to her mid to upper left side of her back. Will begin a steroid taper to further assist in pain management as well as prescribe a short course of cyclobenzaprine for patient to take at night as she states she is unable to get comfortable or sleep overnight since this injury happened. Patient to begin this oral medication regimen as well as apply ice to affected areas to help with muscle inflammation and discomfort. Plan will be to obtain images of both the chest and shoulder for further evaluation and to determine underlying causes for her persistent pain status post fall. Patient aware to follow-up sooner should she have any new or worsening symptoms while we wait for imaging 12/27/2023 Hypertensive chronic kidney disease with stage 1 through stage 4 chronic kidney disease, or unspecified chronic kidney disease (ICD-10 - I12.9) Stable at present. She is also getting good blood pressure at home with systolic less than 120. Recommend using a validated blood pressure cuff at home and monitor ambulatory blood pressure. Goal is systolic less than 120. 12/27/2023 Chronic kidney disease, stage 2 (mild) (ICD-10 - N18.2) Stable estimated GFR in the 70s. Continue control of hypertension as comorbidity 12/27/2023 Mild intermittent asthma, uncomplicated (ICD-10 - J45.20) Stable at present. She would benefit from switching her plain albuterol to a combination inhaler to meet Emily 2022 guidelines 05/17/2024 Other chest pain (ICD-10 - R07.89) Discussed with patient her pain with deep breathing and coughing status post fall at the beginning of May. Patient states she did fall landing on the left side of her chest. Discussed with patient the tenderness on palpation that was noted on exam but no obvious rib deformity. Patient would benefit from obtaining a chest x-ray and if there are no significant findings noted on x-ray patient may benefit from a bone scan to further evaluate for underlying rib fractures. Patient aware to follow-up with any new or worsening symptoms of concern while we wait for further imaging 06/27/2023 Chronic kidney disease, stage 2 (mild) (ICD-10 - N18.2) Stable on prior labs as reviewed estimated GFR in the 70s. Recheck status and continue control of comorbidity of hypertension 06/27/2023 Mild intermittent asthma, uncomplicated (ICD-10 - J45.20) Stable with current inhaler therapy. And follow-up with pulmonology. 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 She still has ongoing issues which she deals with on a daily basis 12/27/2023 Gastrostomy status (ICD-10 - Z93.1) Stable and unchanged. 06/27/2023 Dyskinesia of esophagus (ICD-10 - K22.4) Stable and unchanged. She had endoscopy which showed esophagitis but does not explain her chest pain. 06/27/2023 Gastrostomy status (ICD-10 - Z93.1) Stable and unchanged. 12/27/2023 Obstructive sleep apnea (adult) (pediatric) (ICD-10 - G47.33) Stable at present. 12/27/2023 Chronic migraine without aura, not intractable, without status migrainosus (ICD-10 - G43.709) Continues to have occasional headaches but under fair control with current medical therapy 06/27/2023 Obstructive sleep apnea (adult) (pediatric) (ICD-10 - G47.33) Stable at present. 06/27/2023 Chronic migraine without aura, not intractable, without status migrainosus (ICD-10 - G43.709) Stable with current medical therapy. Continue same. 12/27/2023 Mixed hyperlipidemia (ICD-10 - E78.2) Fair control and prior labs reviewed. Fortunately her calcium score was 0 therefore at the present time this does not need immediate adjustment of her medical therapy 12/27/2023 Gastro-esophageal reflux disease with esophagitis, without bleeding (ICD-10 - K21.00) Stable and unchanged. Can continue chronic PPI therapy based on history of esophagitis 06/27/2023 Mixed hyperlipidemia (ICD-10 - E78.2) Stable on prior labs as reviewed with a calcium score of 0 therefore she is at low risk and no specific intervention needs to be done immediately. 06/27/2023 Gastro-esophageal reflux disease with esophagitis, without bleeding (ICD-10 - K21.00) Had endoscopy and has esophagitis. Can continue chronic PPI therapy 12/27/2023 Vitamin D deficiency, unspecified (ICD-10 - E55.9) Stable on prior labs as reviewed. Continue vitamin D supplementation for goal level of 30+ 12/27/2023 Mild intermittent asthma with (acute) exacerbation (ICD-10 - J45.21) 06/27/2023 Family history of malignant neoplasm of breast (ICD-10 - Z80.3) Up-to-date on mammogram 06/27/2023 Family history of malignant neoplasm of digestive organs (ICD-10 - Z80.0) Up-to-date on colonoscopy 12/27/2023 Encounter for immunization (ICD-10 - Z23) 06/27/2023 Vitamin D deficiency, unspecified (ICD-10 - E55.9) Fair control on prior labs as reviewed. Recheck status. Continue vitamin D supplementation for goal level of 50+ 06/27/2023 Encounter for screening for malignant neoplasm of colon (ICD-10 - Z12.11) Up-to-date on colon cancer screening 06/27/2023 Encounter for screening mammogram for malignant neoplasm of breast (ICD-10 - Z12.31) Up-to-date on breast cancer screening 06/27/2023 Encounter for screening for osteoporosis (ICD-10 - Z13.820) Due for repeat osteoporosis screening. 06/27/2023 Encounter for screening for cardiovascular disorders (ICD-10 - Z13.6) Blood pressure stable. Can check for comorbidity of hyperlipidemia and hyperglycemia to further assess risk 06/27/2023 Encounter for immunization (ICD-10 - Z23) Vaccines up-to-date 06/27/2023 Encounter for antibody response examination (ICD-10 - Z01.84) Titers have been checked in the past and there is immunity to rubeola 06/27/2023 Encounter for screening for other viral diseases (ICD-10 - Z11.59) Can screen for hepatitis C as per general recommendation 06/27/2023 Asymptomatic menopausal state (ICD-10 - Z78.0) 06/27/2023 Sensorineural hearing loss, bilateral (ICD-10 - H90.3) She knows that there is an issue and needs hearing aids. She cannot afford hearing aids 06/27/2023 Other chest pain (ICD-10 - R07.89) she is going to hospice probably not worth it so she still has some chest pain that goes to her back. This may be scoliosis or radiculopathy from a thoracic etiology. Can start with scoliosis series and if unremarkable then MRI of the spine 06/27/2023 Other This note was created with voice dictation recognition software and may contain errors of grammar and syntax. Also labs were reviewed with patient. 12/27/2023 Other This note was created with voice dictation recognition software and may contain errors of grammar and syntax. Also labs were reviewed with patient. Plan Of Treatment Pending Test Test Name Order Date NEB/MDI RX DUONEB 04/21/2018 25OH VITAMIN D 11/25/2020 ACTH 06/04/2021 COMPLETE CBC WITH DIFF 11/25/2020 COMPLETE URINALYSIS 11/25/2020 COMPREHENSIVE METABOLIC PANEL 11/25/2020 LIPID PANEL W REFLEX TO DLDL 11/25/2020 CBC 05/26/2020 COMPREHENSIVE METABOLIC PANEL 05/26/2020 LIPID PROFILE 05/26/2020 URINALYSIS 05/26/2020 LYME C6 ANTIBODY-CURRENT 07/07/2020 LYME C6 ANTIBODY-CURRENT 08/25/2020 Next Appt Details Provider Name:Joan Jeffries , 07/09/2024 01:00:00 PM, [address] [place] [address], [place] [address], [place], [place], [phone], Insurance Providers Payer Name Payer Address Payer Phone Subscriber Number Group Number Insured Name Patient Relationship to Insured Coverage Start Date Coverage End Date MEDICARE [address] [place] [phone] [id number] Martin Linder Viktoria Self - patient is the insured [facility] [address] [address] [place] [address] [id number] Martin Linder Viktoria Self - patient is the insured Medical (General) History Medical History History ICD Code Laryngospasm Headache, migraine Mild intermittent asthma, uncomplicated J45.20 Functional intestinal disorder, unspecif ied K59.9 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
--- OUTSIDE RECORDS SUMMARY | 2024-06-14 10:54 | XMS_ITS ---
Author Organization Joan Powers MD Address [address] [place] [phone] Care Team Providers Care Seasonal Retail Merchandiser Name Role Phone Joan Powers Primary Care Provider Results Component Value Reference Range Notes NM Bone Scan Three Phase Reviewed date:06/14/2024 10:46:13 AM Interpretation: Performing Lab: Notes/Report: REASON FOR VISIT results Encounters Encounter Location Date Provider Diagnosis Joan Powers MD [address] [phone] 05/23/2024 Joan Powers Multiple fractures o f ribs, unspecified side, initial encounter for closed fracture S22.49XA Assessments Encounter Date Diagnosis (ICD Code) Assessment Notes Treatment Notes Treatment Clinical Notes Section Notes 05/23/2024 Multiple fractures of ribs, unspecified side, initial encounter for closed fracture (ICD-10 - S22.49XA) Plan Of Treatment Next Appt Details Provider Name:Joan Powers , 07/09/2024 01:00:00 PM, [address] [place] [address], [phone], Progress Notes * Devorah WOMACKOB: [birth year] (63 yo F)Acc No.[id number]:05/23/2024 Patient:?Hazel WOMACKn :1960???Age:63 Y???Sex:Female Address: [address], [place], [address] Subjective: * Chief Complaints: * ???Results * Medical History:? * Surgical History:? * Hospitalization/Major Diagno stic Procedure:? * Medications:? Objective: * Vitals:? Past Vitals:* 05/17/2024 Temp:97.0F, HR:82/min, Wt:14 7.4lbs, BMI:29.03Index, Ht: 59.75 in, Oxygen sat %:96% * 12/27/2023 Temp:97.3F, HR:66/min, BP: O wn Machine: 117/75 mm Hg,Sitting Right Arm: 118/70mm Hg, Wt:147lbs, BMI:28.95Index, Ht:59.75in, Oxygen sat %:97% * 06/27/2023 HR:82/min, BP:Sitting Right Arm: 126/70mm Hg, Wt:143lbs, BMI:28.16Index, Ht:59.75in, Oxygen sat %:97% * Physical Examination:? Assessment: * Assessment: 1.?Multiple fractures of rib s, unspecified side, initial encounter for closed fracture - S22.49XA (Primary)??? Plan: * Treatment: * Procedure Codes:? * true * Date:? Generated for Dov leonard/Juliana/Dharaitting on:?06/14/2024 10:54 AM EDT
--- OUTSIDE RECORDS SUMMARY | 2024-06-14 10:54 | XMS_ITS ---
Author Organization Joan JOHNSTON Address [address] [place] [address] [place] [phone] Care Team Providers Care Fpga Design Engineer Name Role Phone Joan Powers Primary Care Provider Reason For Referral Reason Fourth and seventh [...] General Notes Jes JEWELL 05/2024 03:07:47 PM >faxedFANTA Giselle 06/08/2024 09:03:37 AM >updated Dr. Daley fax number and refaxed Referral Priority Routine REASON FOR VISIT results Problems Problem Type SNOMED Code ICD Code Onset Dates Problem Status W/U Status Risk Notes Problem Non-traumatic partial tear of left rotator cuff ([id number]) Incomplete rotator cuff tear or rupture of left shoulder, not specified as traumatic (M75.112) Active confirmed Encounters Encounter Location Date Provider Diagnosis Joan Powers MD [address] [facility] [address] [place] [phone] 06/07/2024 Joan Powers Multiple fractures of ribs, left side, sequela S22.42XS and Incomplete rotator cuff tear or rupture of left shoulder, not specified as traumatic M75.112 Assessments Encounter Date Diagnosis (ICD Code) Assessment Notes Treatment Notes Treatment Clinical Notes Section Notes 06/07/2024 Multiple fractures of ribs, left side, sequela (ICD-10 - S22.42XS) 06/07/2024 Incomplete rotator cuff tear or rupture of left shoulder, not specified as traumatic (ICD-10 - M75.112) Plan Of Treatment Referrals Referral Date Details 06/07/2024 06/07/2024, Fourth a nd seventh left anterior rib fractures noted. Patient has had these fractures since early May and is having continued pain and would like further consult with thoracic surgery faxed, Dangelo Woo 06/07/2024 06/07/2024, Supraspi natus tendon tear faxed, Roger Daley Next Appt Details Provider Name:Joan Powers , 07/09/2024 01:00:00 PM, [address] [facility], SUITE [facility], [place], [place], [phone], Progress Notes * Devorah WOMACKOB: [birth year] (63 yo F)Acc No.[id number]:06/07/2024 Patient:?SEGURA Viktoria [place] :1960???Age:63 Y???Sex:Female Address:[address], [address] Subjective: * Chief Complaints: * ???Results * [...] %:97% * Physical Examination:? Assessment: * Assessment: 1.?Incomplete rotator cuff t ear or rupture of left shoulder, not specified as traumatic - M75.112???2.?Multiple fractures of ribs, left side, sequela - S22.42XS (Primary)??? Plan: * Treatment: 2.?Incomplete rotator cuff t ear or rupture of left shoulder, not specified as traumatic? Referral To:Roger Daley??Orthopedic Surgery ?Reason:Supraspinatus tendon tear * Procedure Codes:? * true * Date:? Generated for Dov leonard/Juliana/eTransmitting on:?06/14/2024 10:53 AM EDT Consultation Request Notes Referral Date Referring Provider Referred Provider Not es 06/07/2024 Joan Powers, Dangelo Fourth and s eventh left anterior rib fractures noted. Patient has had these fractures since early May and is having continued pain and would like further consult with thoracic surgery faxed 06/07/2024 Joan Powers Daryle Suprangoziinat us tendon tear faxed
--- OUTSIDE RECORDS SUMMARY | 2024-06-14 10:54 | XMS_ITS | Clinical Summary ---
Author Organization [facility] [employer] [facility] [employer] [facility] Address [address] [place] [address] Care Team Providers Care Assistant Production Manager Name Role Phone Unknown, Primary Care Provider Unavailabl e Social History Tobacco Use Types Packs/Day Years Used Date Smoking Tobacco: Never Assessed Sex and Gender Information Value Date Recorded Sex Assigned at Not on file Gender Identity Not on file Sexual Orientation Not on file Job Start Date Occupation Industry Not on file Not on file Not on file Plan of Treatment Health Maintenance Due Date Last Done Comments Hepatitis C Screening 1960 COVID-19 Vaccine (#1) 04/24/1959 Depression Screening 1970 Preventative Health Evaluation 1976 DTap / Tdap / Td (1 - Tdap) 1977 Cervical Cancer Screening (P ap Smear) 10/23/1979 Colon Cancer Screening (Colonoscopy) 10/23/2003 Breast Cancer Screening (Mammogram) 2008 Shingrix-Zoster Vaccine (1 of 2) 2008 Fall Risk Assessment 10/23/2023 Osteoporosis Screening (DEXA Scan) 10/23/2023 Pneumococcal Vaccine (1 of 1 - PCV) 10/23/2023 Influenza Vaccine (#1) 2023 RSV Adult > 60+ Yrs or Pregn ant (1 - 1-dose 75+ series) 2033 Hepatitis B Vaccines Aged Out No long er eligible based on patient's age to complete this topic Pneumococcal Vaccine Aged Out No long er eligible based on patient's age to complete this topic RSV Ped < 20 months Aged Out No longe r eligible based on patient's age to complete this topic Care Teams Assistant Production Manager Relationship Specialty Start Date End Date Unknown, PCP - General 06/30/22
--- OUTSIDE RECORDS SUMMARY | 2024-06-14 10:55 | XMS_ITS | Referral Summary ---
Author Organization [facility] Address [address] [place] [address] Care Team Providers Care Respiratory Care Instructor Name Role Phone Joan Powers Primary Care Provider [phone] Encounters Date Type Department Care Team Description 05/18/2024 10:55 AM EDT - 05/18/2024 11:59 PM EDT Hospital Encounter [facility] XRay [address] [place] [address] Other chest pain Discharge Disposition: Home or Self Care (01) from Last 3 Months Social History Tobacco Use Types Packs/Day Years Used Date Smoking Tobacco: Never Assessed Comments Unknown Sex and Gender Information Value Date Recorded Sex Assigned at Not on file Legal Sex Female 12:02 AM EDT Gender Identity Not on file Sexual Orientation Not on file Plan of Treatment Not on file Procedures * Due to [place] [email or web address] law, this organization might not be sharing negative HIV tests. Procedure Name Priority Date/Time Associated Diagnosis Comments XR CHEST 2 VW Routine 05/18/2024 11:09 AM EDT Other chest pain from Last 3 Months Results * Due to [place] [email or web address] law, this organization might not be sharing negative HIV tests. * XR Chest 2 vw. (05/18/2024 11:09 AM EDT) Anatomical Region Laterality Modality Body Computed Radiogr aphy 05/19/2024 9:57 AM EDT Impressions 05/19/2024 9:58 AM EDT Negative. Heart normal. ??Lungs clear.. Multiple surgical clips at the GE junction noted. If this radiology report contains a blank impression section, it is an incomplete radiology report. ??Please contact the interpreting radiologist or applicable radiology division as soon as possible to obtain the completed interpretation. ? Workstation ID: [id number] Narrative 05/19/2024 9:58 AM EDT COMPARISON: None FINDINGS AND Resulting Agency Comment [id number] Procedure Note Mario Werner MD - 05/19/2024 COMPARISON: None FINDINGS AND IMPRESSION: Negative. Heart normal. Lungs clear.. Multiple surgical clips at the GEjunction noted. If this radiology report contains a blank impression section, it is anincomplete radiology report. Please contact the interpreting radiologistor applicable radiology division as soon as possible to obtain thecompleted interpretation. Workstation ID: [id number] Joan Powers IM XR PROCEDURES Final Result from Last 3 Months Insurance MEDICARE [facility] Care Teams Respiratory Care Instructor Relationship Specialty Start Date End Date Joan Powers [address] [facility] [address] [place] [address] [facility] - General 09/23/16
--- OUTSIDE RECORDS SUMMARY | 2024-06-14 10:55 | XMS_ITS | Clinical Summary ---
Author Organization [facility] Address [address] [place] [address] Care Team Providers Care Water Resources Program Director Name Role Phone Joan Powers Primary Care Provider [phone] Encounters Date Type Department Care Team Description 05/18/2024 10:55 AM EDT - 05/18/2024 11:59 PM EDT Hospital Encounter [facility] XRay [address] [place] [address] Other chest pain Discharge Disposition: Home or Self Care (01) from Last 3 Months Social History Tobacco Use Types Packs/Day Years Used Date Smoking Tobacco: Never Assessed Comments Unknown Sex and Gender Information Value Date Recorded Sex Assigned at Not on file Legal Sex Female 12:02 AM EDT Gender Identity Not on file Sexual Orientation Not on file Plan of Treatment Health Maintenance Due Date Last Done Comments Cervical Cancer Screening 1960 Cologuard 1960 Colon Cancer Screening 1960 Colonoscopy 1960 FOBT / Fit Test 1960 HIV Screening 1960 HPV and Pap Smear 1960 Pap Smear 1958 Sigmoidoscopy 1958 DTaP,Tdap,and Td Vaccines (1 - Tdap) 1980 Osteoporosis Screening 2008 Pneumococcal Vaccine: 50+ Years (1 of 1 - PCV) 2008 Zoster Vaccines (1 of 2) 2008 COVID-19 Vaccine (4 - 2023- season) 2023 02/17/2021, 05/18/2020, 04/20/2020 Alcohol/Substance Use Screening 03/07/2024 Health Care Proxy Review 03/07/2024 RSV Vaccine (60+ years old and patients) (1 - 1-dose 75+ series) 2033 Influenza Vaccine Completed 12/27/2023, , 01/25/2022, Additional history exists Hepatitis B Vaccines Aged Out No long er eligible based on patient's age to complete this topic Procedures * Due to [place] [employer] law, this organization might not be sharing negative HIV tests. Procedure Name Priority Date/Time Associated Diagnosis Comments XR CHEST 2 VW Routine 05/18/2024 11:09 AM EDT Other chest pain from Last 3 Months Results * Due to [place] [employer] law, this organization might not be sharing [...] obtain the completed interpretation. ? Workstation ID: [id number] Narrative 05/19/2024 9:58 AM EDT COMPARISON: None FINDINGS AND Resulting Agency Comment [id number] Procedure Note Mario Werner MD - 05/19/2024 COMPARISON: None FINDINGS AND IMPRESSION: Negative. Heart normal. Lungs clear.. Multiple surgical clips at the GEjunction noted. If this radiology report contains a blank impression section, it is anincomplete radiology report. Please contact the interpreting radiologistor applicable radiology division as soon as possible to obtain thecompleted interpretation. Workstation ID: [id number] Joan BELL XR PROCEDURES Final Result from Last 3 Months Insurance MEDICARE [facility] Care Teams Water Resources Program Director Relationship Specialty Start Date End Date Joan Powers [address] [facility] [address] [address] [place] [address] PCP - General 09/23/16
--- OUTSIDE RECORDS SUMMARY | 2024-06-14 10:55 | XMS_ITS ---
Author Organization Joan Powers MD Address [address] [phone] Care Team Providers Care Pastry Chef Name Role Phone Joan Powers Primary Care Provider REASON FOR VISIT referral Encounters Encounter Location Date Provider Diagnosis Joan Powers MD 50 [facility] KIN TE [address] [place] [phone] 06/08/2024 Joan Powers Plan Of Treatment Next Appt Details Provider Name:Joan Powers , 07/09/2024 01:00:00 PM, [address] [place] [address], [place] [address], [place], [place], [phone], Progress Notes * Devorah WOMACKOB: [birth year] (63 yo F)Acc No.[id number]:06/08/2024 Patient:?Viktoria WOMACK :1960???Age:63 Y???Sex:Female Address:[address], [place], [address] * true * Date:? Generated for Printi aisha/Juliana/eTransmitting on:?06/14/2024 10:54 AM EDT
== END 2024-06-14 10:41 | disposition home or self-care (01) ==
LOC: HO.HOS 09:41
PROVIDERS: PCP Internal Medicine; Visit Provider Orthopaedic Surgery
DX: M25.312 Other instability, left shoulder (principal)
CPT/HCPCS: 99204; G2211

== ENCOUNTER → 2024-06-14 09:41 | Outpatient (BNVA) | payer MEDICARE, OTHER, SELFPAY | PROVIDERS: PCP Internal Medicine; Visit Provider Orthopaedic Surgery | DX: M25.312 Other instability, left shoulder (principal) | CPT/HCPCS: 99202 ==

== ENCOUNTER → 2024-07-13 12:59 | Outpatient (BNV) | payer MEDICARE, OTHER, SELFPAY | PROVIDERS: PCP Internal Medicine; Visit Provider Internal Medicine | DX: R94.31 Abnormal electrocardiogram [ECG] [EKG] (principal); I95.1 Orthostatic hypotension; G47.33 Obstructive sleep apnea (adult) (pediatric) | CPT/HCPCS: 93010 ==

== ENCOUNTER 2024-07-27 09:01 | Day surgery (SDC) | payer MEDICARE, OTHER, SELFPAY ==
--- OUTSIDE RECORDS SUMMARY | 2024-06-20 13:01 | XMS_ITS ---
Author Organization Joan Powers MD Address [address] [place] [phone] Care Team Providers Care Foundry Supervisor Name Role Phone Joan Powers Primary Care Provider Results Component Value Reference Range Notes NM Bone Scan Three Phase Reviewed date:06/14/2024 10:46:13 AM Interpretation: Performing Lab: Notes/Report: REASON FOR VISIT results Encounters Encounter Location Date Provider Diagnosis Joan Powers MD [address] [phone] 05/23/2024 Joan Powers Multiple fractures o f ribs, unspecified side, initial encounter for closed fracture S22.49XA Assessments Encounter Date Diagnosis (ICD Code) Assessment Notes Treatment Notes Treatment Clinical Notes Section Notes 05/23/2024 Multiple fractures of ribs, unspecified side, initial encounter for closed fracture (ICD-10 - S22.49XA) Plan Of Treatment Next Appt Details Provider Name:Joan Powers , 07/09/2024 01:00:00 PM, [address] [place] [address], [phone], Progress Notes * Devorah WOMACKOB: [birth year] (63 yo F)Acc No.[id number]:05/23/2024 Patient:?Hazel WOMACKn :1960???Age:63 Y???Sex:Female Address: [address], [place], [address] Subjective: * Chief Complaints: * ???Results * [...] * true * Date:? Generated for Dov leonard/Juliana/Tanya on:?06/20/2024 01:01 PM EDT
--- OUTSIDE RECORDS SUMMARY | 2024-06-20 13:01 | XMS_ITS | Clinical Summary ---
Author Organization [facility] [facility] Address [address] [place] [address] Care Team Providers Care Principal Android Developer Name Role Phone Unknown, Primary Care Provider [...] age to complete this topic Care Teams Principal Android Developer Relationship Specialty Start Date End Date Unknown, PCP - General 06/30/22
--- OUTSIDE RECORDS SUMMARY | 2024-06-20 13:01 | XMS_ITS | Clinical Summary ---
Author Organization [facility] ity Address [address] [place] [address] Care Team Providers Care Engraver Machine Name Role Phone Joan Powers MD Primary Care Provider Medications pantoprazole (PROTONIX) 40 mg EC tabletIndication s:Gastroesophage al reflux disease without esophagitis TAKE 1 TABLET BY MOUTH EVERY DAY 90 tablet 06/15/2024 Active Surgical History Surgery Date Site/Laterality Comments APPENDECTOMY PROCEDURE: VT APPENDECTOMY BUNIONECTOMY PROCEDURE: BUNION SURGERY, SIMPLE REMOVAL OTHER SURGICAL HISTORY PROCEDURE: VT LAPS SURG GASTROSTOMY W/O CONSTJ GSTR TUBE SPX CARPAL TUNNEL RELEASE PROCEDURE: HISTORICAL CARPAL TUNNEL REL HERNIA REPAIR PROCEDURE: HISTORICAL HERNIA REPAIR/FRANCINE ROTATOR CUFF REPAIR PROCEDURE: HISTORICAL ROTATOR CUFF REPAIR Medical History Medical History Date Comments Laryngospasm DX:Laryngospasm Headache, migraine DX:Headache, migraine Asthma DX:Asthma 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 ([facility] V24, [facility] V28) DX: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 ease ([facility]) Bronchitis DX:Bronchitis Vitamin D deficiency DX:Vitamin D [...] Last Done Comments Breast Cancer Screening 1960 COVID-19 Vaccine (#1) 10/23/1963 DTaP,Tdap,and Td Vaccines (1 - Tdap) 1977 Cervical Cancer Screening: P ap Smear 10/23/1979 Pneumococcal Vaccine: 50+ Ye ars (1 of 1 - PCV) 2008 Zoster Vaccines (1 of 2) 2008 Colorectal Cancer Screening: Colonoscopy 02/03/2022 Depression Screening 02/03/2022 Hepatitis C Screening 02/03/2022 Osteoporosis Screening (Bone Density Screening) 02/03/2022 Social Influencers of Health Screening 02/03/2022 Falls Risk Assessment 10/23/2023 Influenza Vaccine (Season Ended) 2024 RSV Immunization [...] Documents on File Type Date Recorded Patient Director Physical Therapy Expl anation Health Care Decision (hx) 06/06/2014 AD BELLO DIRECTIVE Health Care Decision (hx) 06/06/2014 AD BELLO DIRECTIVE Health Care Decision (hx) 06/06/2014 AD BELLO DIRECTIVE Health Care Decision (hx) 06/06/2014 AD BELLO DIRECTIVE Health Care Decision (hx) 06/06/2014 AD BELLO DIRECTIVE Health Care Decision (hx) 06/06/2014 AD BELLO DIRECTIVE Health Care Decision (hx) 06/06/2014 AD BELLO DIRECTIVE Care Teams Engraver Machine Relationship Specialty Start Date End Date Joan Powers MD PCP - General Internal Medicine 11/14/17
--- OUTSIDE RECORDS SUMMARY | 2024-06-20 13:01 | XMS_ITS | Patient Health Record ---
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) CRPS (complex regional pain syndrome) (G90.50) Active confirmed Plan Of Treatment Pending Test Test Name Order Date X ray : Foot, right 3V 02/19/2016 X ray : Foot, right 3V 04/01/2016 X ray : Foot, right 3V 07/22/2016 X ray : Foot, right 3V 07/23/2021 X ray : Foot, right 3V 08/17/2021 [id number] Plate 07/22/2016 [id number],[id number] TENDON SHEATH/LIGAMENT 0 06/17/2016 Insurance Providers Payer Name Payer Address Payer Phone Subscriber Number Group Number Insured Name Patient Relationship to Insured Coverage Start Date Coverage End Date Medicare National [employer] [address] [place] [address] [id number] Salazar KailashHazel andersenn Self - patient is the insured [employer] [address] [address] [place] [address] [id number] SalazarHazel Ervinn Self - patient is the [...]
--- OUTSIDE RECORDS SUMMARY | 2024-06-20 13:01 | XMS_ITS ---
Author Organization Joan JOHNSTON Address [address] [place] [address] [place] [phone] Care Team Providers Care Nurse Instructor Name Role Phone Joan Powers Primary [...] Non-traumatic partial tear of left rotator cuff ([id number]) Incomplete rotator cuff tear or rupture of left shoulder, not specified as traumatic (M75.112) Active confirmed Encounters Encounter Location Date Provider Diagnosis Joan Powers MD 50 [facility] [address] [place] [phone] 06/07/2024 Joan Powers Multiple fractures of ribs, [...] Name:Joan Powers , 07/09/2024 01:00:00 PM, 50 [facility], SUITE [facility], [place], [place], [phone], Progress Notes * Devorah WOMACKOB: [birth year] (63 yo F)Acc No.[id number]:06/07/2024 Patient:?SEGURA Viktoria LOUIS :1960???Age:63 Y???Sex:Female Address:[address], [address] Subjective: * Chief Complaints: * ???Results * [...] true * Date:? Generated for Dov leonard/Juliana/eTransmitting on:?06/20/2024 01:01 PM EDT Consultation Request Notes Referral Date Referring Provider Referred Provider Not es 06/07/2024 Joan Powers, Dangelo Fourth and s eventh left anterior rib fractures noted. Patient has had these fractures since early May and is having continued pain and would like further consult with thoracic surgery faxed 06/07/2024 Joan Powers Daryle Suprangoziinat us tendon tear faxed
--- OUTSIDE RECORDS SUMMARY | 2024-06-20 13:01 | XMS_ITS ---
Author Organization Joan Powers MD Address [address] [phone] Care Team Providers Care Cattle Sticker Name Role Phone Joan Powers Primary Care Provider REASON FOR VISIT referral Encounters Encounter Location Date Provider Diagnosis Joan Powers MD 50 [facility] KIN TE [address] [place] [phone] 06/08/2024 Joan Powers Plan Of Treatment Next Appt Details Provider Name:Joan Powers , 07/09/2024 01:00:00 PM, [address] [place] [address], [place] [address], [place], [place], [phone], Progress Notes * Devorah WOMACKOB: [birth year] (63 yo F)Acc No.[id number]:06/08/2024 Patient:?Viktoria WOMACK :1960???Age:63 Y???Sex:Female Address:[address], [place], [address] * true * Date:? Generated for Printi aisha/Juliana/eTransmitting on:?06/20/2024 01:01 PM EDT
--- OUTSIDE RECORDS SUMMARY | 2024-06-20 13:02 | XMS_ITS | Patient Health Record ---
Author Organization [facility] Address [address] [place] [id number] Care Team Providers Care Manager Adult Name Role Phone Joan Jeffries Primary Care Provider [phone] Ella Olsen Unavailable [phone] Allergies Allergen (clinical drug ingredient) Drug/Non Drug [...] date:06/14/2024 10:46:13 AM Interpretation: Performing Lab: Notes/Report: PDF Report Reviewed date:07/06/2023 08:08:50 AM Interpretation: Performing Lab:[facility] King, [address] [place] [address], [place], Phone - [phone], Director - Becky Notes/Report: Dexa Bone Density (Axial) Reviewed date:01/20/2024 09:26:49 AM Interpretation: Performing Lab: Notes/Report: MR Shoulder Left (Not yet re viewed by provider) Interpretation: Performing Lab: Notes/Report: Original Report PROCEDURE: MR SHOULDER WITHOUT CONTRAST LEFT INDICATION: Pain. No prior surgery. Sprain of rotator cuff capsule. Fall. COMPARISON: None. TECHNIQUE: Left shoulder MRI was performed without contrast and 6 diagnostic sequences were obtained. FINDINGS: The acromioclavicular joint is congruent. Undersurface of the acromion is flat. The coracoclavicular and coracoacromial ligaments are intact. The subacromial/subdeltoid bursa contains trace fluid. The rotator cuff muscle volume is preserved. No muscular edema. The supraspinatus and infraspinatus tendons demonstrates a supraspinatus tendon partial thickness articular sided tearing comprising 50% of the tendon thickness (coronal T2 fat sat images 15 and 16). This is a delaminating type tear. The infraspinatus tendon is intact. The teres minor tendon is intact. The subscapularis tendon is intact. The long head biceps tendon is intact. The glenohumeral joint is congruent. No joint effusion. No synovitis. Glenoid cartilage is preserved. No labral detachment. Humeral head cartilage is preserved. Bone marrow signal is normal. No soft tissue collection. IMPRESSION: 1. Supraspinatus tendon partial thickness articular sided tear. Read by: Lenin Saavedra M.D. Reviewed and Electronically Signed by: Lenin Saavedra M.D. ----- ------- Original Report ------ PROCEDURE: MR SHOULD ER WITHOUT CONTRAST LEFT INDICATION: Pain. No prior surgery. Sprain of rotator cuff capsule. Fall. COMPARISON: None. TECHNIQUE: Left [facility] MRI was performed without contrast and 6 diagnostic sequences were obtained. FINDINGS: The acromioclavicular joint is congruent. Undersurface of the acromion is flat. The coracoclavicular and coracoacromial ligaments are intact. The subacromial/subdeltoid bursa contains trace fluid. The rotator cuff mus lynn volume is preserved. No muscular edema. The supraspinatus an d infraspinatus tendons demonstrates a supraspinatus tendon partial thickness articular sided tearing comprising 50% of the tendon thickness (coronal T2 fat sat images 15 and 16). This is a delaminating type tear. The infraspinatus tendon is intact. The teres minor tendon is intact. The subscapularis te ndon is intact. The long head biceps tendon is intact. The glenohumeral chelsea nt is congruent. No joint effusion. No synovitis. Glenoid cartilage is preserved. No labral detachment. Humeral head cartilage is preserved. Bone marrow signal i s normal. No soft tissue collection. IMPRESSION: 1. Supraspinatus ten don partial thickness articular sided tear. Read by: Lenin Saavedra M.D. Reviewed and Electronically Signed by: Lenin Saavedra M.D. NM Bone and/or Joint Whole B kourtney [...] anterior seventh rib fracture. Degenerative changes. WSN: [id number] Ordering Physician: Joan Jeffries Dictated By: [facility] CHRISTINA, [place] Culver Exam: NM Whole Body Bone Scan History: [...] anterior seventh rib fracture. Degenerative changes. WSN: [id number] Ordering Physician: Joan Jeffries Urinalysis, Complete-[id number] Reviewed date:12/28/2023 06:26:36 PM Interpretation: Performing Lab:[facility] Fernando, [address] [place] [address], [place], Phone - [phone], Director - Becky Notes/Report: Specific Carbon 1.020 1.005-1.030 pH 5.5 5.0-7.5 Urine-Color Yellow [...] Bacteria None seen None seen/Few Vitamin D, 57-Onjztyd-[id number] Reviewed date:12/28/2023 06:26:36 PM Interpretation: Performing Lab:Simfinit Fernando, [email or web address], [place], Phone - [phone], Director - Becky Notes/Report: Vitamin D, 25-Hydroxy 49.2 30.0-100.0 ng/mL Vitamin D deficiency has been defined by the Dresser of Medicine and an Endocrine Society practice guideline as a level of serum 25-OH vitamin D less than 20 ng/mL (1,2). The Endocrine Society went on to further define vitamin D insufficiency as a level between 21 and 29 ng/mL (2). 1. IOM (Dresser of Medicine). 2010. Dietary reference intakes for calcium and D. [place]: The National Academies Press. 2. Carla MF, Neri ROSA, Michelle MCLEOD, et al. Evaluation, treatment, and prevention of vitamin D deficiency: an Endocrine Society clinical practice guideline. JCEM. 2010; 96(7):1911-30. Albumin/Creatinine Ratio,Uri ne-[id number] Reviewed date:12/28/2023 06:26:36 PM Interpretation: Performing Lab:[facility] [place], [address] [facility], [place], Phone - [phone], Director - Becky Notes/Report: Creatinine, Urine 139.8 Not Estab. mg/dL Albumin, Urine 6.1 Not Estab. ug/mL Alb/Creat Ratio 4 0-29 mg/g creat Normal: 0 - 29 Moderately increased: 30 - 300 Severely increased: >300 Comp. Metabolic Panel (14)-3 Reviewed date:12/28/2023 06:26:36 PM Interpretation: Performing Lab:[facility], [address] [facility], [place], Phone - [phone], Director - Becky Notes/Report: Glucose 97 70-99 [...] IU/L ALT (SGPT) 20 0-32 IU/L LP+Non-HDL Cholesterol-69619 5 Reviewed date:12/28/2023 06:26:36 PM Interpretation: Performing Lab:[facility], [address] [place] [address], Phone - [phone], Director - Becky Notes/Report: Cholesterol, Total 234 100-199 mg/dL Triglycerides 78 0-149 mg/dL HDL Cholesterol 78 >39 mg/dL VLDL Cholesterol Shay 13 5-40 mg/dL LDL Chol Calc (NIH) 143 0-99 mg/dL Non-HDL Cholesterol 156 0-129 mg/dL CR Chest Routine 2 Views Reviewed date:05/23/2024 06:06:48 AM Interpretation: Performing Lab: Notes/Report: MR Shoulder LT WO Reviewed date:06/07/2024 01:27:45 PM Interpretation: Performing Lab: Notes/Report: CR T/L Spine 1 View Reviewed date:07/06/2023 08:08:50 AM Interpretation: Performing Lab: Notes/Report: Original Ordering Provider: JOAN JEFFRIES MD [facility] Urinalysis, Complete-[id number] Reviewed date:07/06/2023 08:08:49 AM Interpretation: Performing Lab:[facility] [place], [address] [place] [address], Phone - [phone], Director - Becky Notes/Report: Specific Carbon 1.020 1.005-1.030 pH 5.5 5.0-7.5 Urine-Color Yellow [...] None seen None seen/Few CBC With Differential/Platel et-[id number] Reviewed date:07/06/2023 08:08:49 AM Interpretation: Performing Lab:[facility] [place], [address] [place] [address], [place], Phone - [phone], Director - Becky Notes/Report: WBC 6.8 3.4-10.8 [...] Grans (Abs) 0.0 0.0-0.1 x10E3/uL Vitamin D, 58-Hpgydhc-660106 Reviewed date:07/06/2023 08:08:49 AM Interpretation: Performing Lab:Pasquale King, [address] [place] [address], [place], Phone - [phone], Director - Becky Notes/Report: Vitamin D, 25-Hydroxy 42.2 30.0-100.0 ng/mL Vitamin D deficiency has been defined by the Dresser of Medicine and an Endocrine Society practice guideline as a level of serum 25-OH vitamin D less than 20 ng/mL (1,2). The Endocrine Society went on to further define vitamin D insufficiency as a level between 21 and 29 ng/mL (2). 1. IOM (Dresser of Medicine). 2010. Dietary reference intakes for calcium and D. [place]: The National Academies Press. 2. Carla MF, Neri NC, Michelle MCLEOD, et al. Evaluation, treatment, and prevention of vitamin D deficiency: an Endocrine Society clinical practice guideline. JCEM. 2010; 96(7):1911-30. Comp. Metabolic Panel (14)-3 68740 Reviewed date:07/06/2023 08:08:49 AM Interpretation: Performing Lab:[facility] Fernando, [place] [facility], Phone - [phone], Director - MDMinnadry Notes/Report: Glucose 84 70-99 mg/dL BUN 13 [...] IU/L ALT (SGPT) 18 0-32 IU/L LP+Non-HDL Cholesterol-80211 5 Reviewed date:07/06/2023 08:08:50 AM Interpretation: Performing Lab:[facility] [place] [facility], Phone - [phone], Director - MDMinnadry Notes/Report: Cholesterol, Total 252 100-199 mg/dL Triglycerides 79 0-149 mg/dL HDL Cholesterol 81 >39 mg/dL VLDL Cholesterol Shay 13 5-40 mg/dL LDL Chol Calc (NIH) 158 0-99 mg/dL Non-HDL Cholesterol 171 0-129 mg/dL HCV Antibody-[id number] Reviewed date:07/06/2023 08:08:50 AM Interpretation: Performing Lab:[facility] [place] [facility], Phone - [phone], Director - MDMinnadry Notes/Report: Hep C Virus Ab Non Reactive Non Reactive HCV antibody alone does not differentiate between previously resolved infection and active infection. Equivocal and Reactive HCV antibody results should be followed up with an HCV RNA test to support the diagnosis of active HCV infection. MM Digital Mammo Screening Reviewed date:01/10/2024 06:08:47 PM Interpretation: Performing Lab: Notes/Report: PROCEDURE: MM Digital Mammo Screening INDICATION: Screening for breast cancer. No known palpable abnormalities. COMPARISON: [facility] dating back to 12/12/2020. TECHNIQUE: Full-field digital [...] (Negative) Lay letter mailed to patient WSN: [id number] Ordering Physician: Joan Jeffries Dictated By: Katie Rico MD, I PROCEDURE: MM Digita l Mammo Screening INDICATION: Screenin g for breast cancer. No known palpable abnormalities. COMPARISON: [facility] heather ing back to 12/12/2020. TECHNIQUE: Full-fiel [...] (Negative) Lay letter mailed to patient WSN: [id number] Ordering Physician: Joan Jeffries Dexa Bone Density (Axial) Reviewed date:01/18/2024 08:35:09 AM Interpretation: Performing Lab: Notes/Report: Name:VIKTORIA LOUIS Age:63 years Sex:Female Ethnicity:White Date of :1960 [...] osteopenia as determined by WHO criteria. WSN: [id number] Ordering Physician: Joan Jeffries Dictated By: Blake Hartman MD Name:VIKTORIA LOUIS Age:63 years Sex:Female Ethnicity:White Date of :1960 [...] osteopenia as determined by WHO criteria. WSN: [id number] Ordering Physician: Joan Jeffries Reason For Referral Reason Fourth and seventh l eft anterior rib fractures noted. Patient has had these fractures since early May and is having continued pain and would like further consult with thoracic surgery faxed Diagnosis 1 Multiple fractures o f ribs, left side, sequela (S22.42XS) Referral Organization [facility] Referring Provider First Name Joan Referring Provider Last Name Gio Referring Provider Speciality Internal M edicine Referred Provider Dangelo Woo Referred Provider Specialty Thoracic Yasmin daylin [facility] 03:07:16 PM >faxed Referral Priority Routine Reason Supraspinatus tendon tear faxed Diagnosis 1 Incomplete rotator c uff tear or rupture of left shoulder, not specified as traumatic (M75.112) Referral Organization [facility] Referring Provider First Name Joan Referring Provider Last Name Gio Referring Provider Speciality Internal M edicine Referred Provider Roger Daley Referred Provider Specialty Orthopedic S urgery General Notes [facility] 05/2024 03:07:47 PM >faxed, [facility] Jse 06/08/2024 09:03:37 AM >updated Dr. Daley fax [...] Vaccine Route Administration Date Status Comme nts [id number]-Mkffyuf Vaccine Unknown 04/20/2020 Administere d WDFFE-46-Ltccggy Vaccine Unknown 05/18/2020 Administere d FHTQH-49-Rijmmfr Vaccine Unknown 02/17/2021 Administere d *Influenza-Quadrivalent IM Intramuscular 12/20/2022 Admini stered *Influenza-Medicare-AS IM Intramuscular 12/06/2018 Adminis tered *Influenza-Medicare-AS IM Intramuscular 01/25/2022 Adminis tered *Wozfljuay-Fmcehms-Ethe Dose-65+ IM Intramuscular 12/27/2023 Administered Influenza, seasonal, injectable, preservative free, 4 yrs and above IM Intramuscular 02/12/2016 Administered Fvsfeautf-6114-20 Afluria-Single IM Intramuscular 12/19/2017 Administered Ghdgctjsd-1049-76 Afluria-Single Unknown 12/10/2019 Administered Influenza-Afluria (IIV4) IM [...] Status Risk Notes Problem Vitamin D deficiency (03880993) Vitamin D deficiency, unspecified (E55.9) Active confirmed Problem Mixed hyperlipidemia (892420885) Mixed hyperlipidemia (E78.2) Active confirmed Problem Chronic migraine without aura, non-intractable (523962579535283) Chronic migraine without aura, not intractable, without status migrainosus (G43.709) Active confirmed Problem Obstructive sleep apnea syndrome (38494314) Obstructive sleep apnea (adult) (pediatric) (G47.33) Active confirmed Problem Carpal tunnel syndrome (48341313) Carpal tunnel syndrome, unspecified upper limb (G56.00) Active confirmed Problem Sensorineural hearing loss of bilateral ears (disorder) (542463819) Sensorineural hearing loss, bilateral (H90.3) Active confirmed Problem Chronic kidney disease due to hypertension (653698045894002) Hypertensive chronic kidney disease with stage 1 through stage 4 chronic kidney disease, or unspecified chronic kidney disease (I12.9) Active confirmed Problem Orthostatic hypotension (19602072) Orthostatic hypotension (I95.1) Active confirmed Problem Mild intermittent asthma (353752410) Mild intermittent asthma, uncomplicated (J45.20) Active confirmed Problem Dyskinesia of esophagus (42912077) Dyskinesia of esophagus (K22.4) Active confirmed Problem Functional disorder of intestine (19034862) Functional intestinal disorder, unspecified (K59.9) Active confirmed Problem Polyarthritis (722345200) Polyarthritis, unspecified (M13.0) Active confirmed Problem Acquired hallux valgus (70704201) Hallux valgus (acquired), right foot (M20.11) Active confirmed Problem Non-traumatic partial tear of left rotator cuff (6176000380265355) Incomplete rotator cuff tear or rupture of left shoulder, not specified as traumatic (M75.112) Active confirmed Problem Osteoporosis (35853310) Other osteoporosis without current pathological fracture (M81.8) Active confirmed Problem Chronic kidney disease stage 2 (660155510) Chronic kidney disease, stage 2 (mild) (N18.2) Active confirmed Problem Family history of malignant neoplasm of gastrointestinal tract (266727078) Family history of malignant neoplasm of digestive organs (Z80.0) Active confirmed Problem Family history of malignant neoplasm of breast (846858581) Family history of malignant neoplasm of breast (Z80.3) Active confirmed Problem Gastrostomy present (901148009) Gastrostomy status (Z93.1) Active confirmed Problem 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 Problem Gastroesophageal reflux disease with esophagitis (disorder) (329940615) Gastro-esophageal reflux disease with esophagitis, without bleeding (K21.00) Active confirmed Vital Signs Heart Rate 82 /min 05/17/2024 Temperature 97.0 degrees Fahrenheit 05/17/2024 Blood pressure diastolic 70 mm Hg 12/27/2023 Oximetry 96 % 05/17/2024 Height 59.75 in 05/17/2024 Blood pressure systolic 118 mm Hg 12/27/2023 Weight 147.4 lbs 05/17/2024 BMI 29.03 kg/m2 05/17/2024 Encounters Encounter Location Date Provider Diagnosis [facility] [address] [id number] 07/06/2023 Joan Jeffries MD [address] [id number] 01/02/2024 Joan Jeffries MD [address] [id number] 05/23/2024 Joan Jeffries Multiple fractures o f ribs, unspecified side, initial encounter for closed fracture S22.49XA Joan Jeffries MD [address] [id number] 06/07/2024 Joan Jeffries Multiple fractures o f ribs, left side, sequela S22.42XS and Incomplete rotator cuff tear or rupture of left shoulder, not specified as traumatic M75.112 Joan Jeffries MD [address] [id number] 06/08/2024 Joan Jeffries MD [address] [id number] 05/17/2024 Ella Olsen Muscle spasm of back M62.830 ; Sprain of left rotator cuff capsule, initial encounter S43.422A and Other chest pain R07.89 Joan Jeffries MD [address] [id number] 12/27/2023 Joan Jeffries Hypertensive chronic kidney disease [...] Encounter for immunization Z23 Joan Jeffries MD [address] [id number] 06/27/2023 Joan Jeffries Hypertensive chronic kidney disease [...] Z00.00) General healthcare up-to-date. Check routine labs 12/27/2023 Hypertensive chronic kidney disease with stage [...] 70s. Continue control of hypertension as comorbidity 05/17/2024 Muscle spasm of back (ICD-10 - M62.830) Reviewed with patient the fall that she sustained at the beginning may while catching her mother. Patient did not seek medical help or urgent care while in [place] and states that the pain has been [...] worsening symptoms while we wait for imaging 05/17/2024 Sprain of left rotator cuff capsule, [...] left side, sequela (ICD-10 - S22.42XS) 05/17/2024 Other chest pain (ICD-10 - R07.89) [...] concern while we wait for further imaging 12/27/2023 Mild intermittent asthma, uncomplicated (ICD-10 - J45.20) Stable at present. She would benefit from switching her plain albuterol to a combination inhaler to meet Emily 2022 guidelines 06/27/2023 Chronic kidney disease, stage 2 (mild) [...] D supplementation for goal level of 30+ 06/27/2023 Family history of malignant neoplasm of breast (ICD-10 - Z80.3) Up-to-date on mammogram 12/27/2023 Mild intermittent asthma with (acute) exacerbation (ICD-10 - J45.21) 12/27/2023 Encounter for immunization (ICD-10 - Z23) 06/27/2023 Family history of malignant neoplasm of digestive organs (ICD-10 - Z80.0) Up-to-date on colonoscopy 06/27/2023 Vitamin D deficiency, unspecified (ICD-10 - [...] C6 ANTIBODY-CURRENT 07/07/2020 LYME C6 ANTIBODY-CURRENT 08/25/2020 MR Shoulder Left 06/04/2024 Next Appt Details Provider Name:Joan Jeffries , 07/09/2024 01:00:00 PM, [address] [place] [address], [address], [place], [place], [phone], Insurance Providers Payer Name Payer Address Payer Phone Subscriber Number Group Number Insured Name Patient Relationship to Insured Coverage Start Date Coverage End Date MEDICARE [address] [place] [phone] [id number] Viktoria Garcia Self - patient is the insured Human [address] [address] [place] [address] [phone] [id number] Viktoria Garcia Self - patient is the insured Medical [...]
--- OUTSIDE RECORDS SUMMARY | 2024-06-20 13:02 | XMS_ITS | Clinical Summary ---
Author Organization [facility] Address [address] [place] [address] Care Team Providers Care Inbound Sales Consultant Name Role Phone Joan Powers Primary Care Provider [phone] Encounters Date Type Department Care Team Description 05/18/2024 10:55 AM EDT - 05/18/2024 11:59 PM EDT Hospital Encounter [facility] XRay [address] [place] [address] Other chest pain Discharge Disposition: Home or [...] complete this topic Procedures * Due to [place] AI Patents law, this organization might not be sharing negative HIV tests. Procedure Name Priority Date/Time Associated Diagnosis Comments XR CHEST 2 VW Routine 05/18/2024 11:09 AM EDT Other chest pain from Last 3 Months Results * Due to [place] AI Patents law, this organization might not be sharing [...] obtain the completed interpretation. ? Workstation ID: [id number] Narrative 05/19/2024 9:58 AM EDT COMPARISON: None FINDINGS AND Resulting Agency Comment [id number] Procedure Note Mario Werner MD - 05/19/2024 COMPARISON: None FINDINGS AND IMPRESSION: Negative. Heart normal. Lungs clear.. Multiple surgical clips at the GEjunction noted. If this radiology report contains a blank impression section, it is anincomplete radiology report. Please contact the interpreting radiologistor applicable radiology division as soon as possible to obtain thecompleted interpretation. Workstation ID: [id number] Joan BELL XR PROCEDURES Final Result from Last 3 Months Insurance MEDICARE [facility] Care Teams Inbound Sales Consultant Relationship Specialty Start Date End Date Joan Powers [address] [facility] [address] [facility] [place] [address] PCP - General 09/23/16
--- OUTSIDE RECORDS SUMMARY | 2024-06-20 13:02 | XMS_ITS | Referral Summary ---
Author Organization [facility] Address [address] [place] [address] Care Team Providers Care Watermelon Inspector Name Role Phone Joan Powers Primary Care Provider [phone] Encounters Date Type Department Care Team Description 05/18/2024 10:55 AM EDT - 05/18/2024 11:59 PM EDT Hospital Encounter [facility] XRay [address] [place] [address] Other chest pain Discharge Disposition: Home or [...] on file Procedures * Due to [place] [employer] law, this organization might not be sharing negative HIV tests. Procedure Name Priority Date/Time Associated Diagnosis Comments XR CHEST 2 VW Routine 05/18/2024 11:09 AM EDT Other chest pain from Last 3 Months Results * Due to [place] law, this organization might not be sharing [...] obtain the completed interpretation. ? Workstation ID: [id number] Narrative 05/19/2024 9:58 AM EDT COMPARISON: None FINDINGS AND Resulting Agency Comment [id number] Procedure Note Mario Werner MD - 05/19/2024 COMPARISON: None FINDINGS AND IMPRESSION: Negative. Heart normal. Lungs clear.. Multiple surgical clips at the GEjunction noted. If this radiology report contains a blank impression section, it is anincomplete radiology report. Please contact the interpreting radiologistor applicable radiology division as soon as possible to obtain thecompleted interpretation. Workstation ID: [id number] Joan Powers IM XR PROCEDURES Final Result from Last 3 Months Insurance MEDICARE [facility] Care Teams Watermelon Inspector Relationship Specialty Start Date End Date Joan Powers [address] [facility] [address] [facility] [place] [address] [facility] - General 09/23/16
--- NOTE | 2024-07-13 | ECG_ITS ---
Test Reason : QUEENIE, orthostatic Blood Pressure : */* mmHG Vent. Rate : 66 BPM Atrial Rate : 66 BPM P-R Int : 154 ms QRS Dur : 96 ms QT Int : 464 ms P-R-T Axes : 57 20 113 degrees QTcB Int : 486 ms Normal sinus rhythm T inversion lateral leads, possible ischemia Abnormal ECG No previous ECGs available Referred By: Lakshmi Aguilar Electronically Signed By: TONY POSADA
[2024-07-13 12:29] VITALS: BP 136/71; PULSE 67; RESP 16; O2SAT 98; BMI 29.7
[2024-07-13 13:30] LABS: Hematocrit 40.4 % (37.0-47.0); Hemoglobin 13.4 g/dl (12.0-16.0); Mean Corpuscular HGB Conc 33.2 g/dl (31.0-35.0); Mean Corpuscular Hemoglobin 31.2 pg (27.0-33.0); Mean Corpuscular Volume 94.2 fL (80.0-98.0); Mean Platelet Volume 9.8 fL (9.4-12.3); Platelet Count 257 X10*3/uL (160-400); Red Blood Count 4.29 X10*6/uL (4.20-5.50); Red Cell Distribution Width 13.2 % (11.0-16.0); White Blood Count 6.2 X10*3/uL (4.8-10.8)
[2024-07-13 14:21] LABS: Anion Gap 10 (12-20); Blood Urea Nitrogen 17 mg/dL (9-16); Calcium 9.3 mg/dL (8.4-10.2); Carbon Dioxide 25 mmol/L (22-29); Chloride 108 mmol/L (96-108); Creatinine Clr Calc Pharmacy 56.1; Estimated Glomerular Filt Rate > 60; Glucose Random 91 mg/dL (60-115); Potassium 3.7 mmol/L (3.3-5.1); Sodium 139 mmol/L (135-145)
[2024-07-27] VITALS (9 sets, daily range): BP systolic 119–141; BP diastolic 63–73; PULSE 69–77; RESP 12–18; TEMP 36.3–36.7; O2SAT 95–100
[2024-07-27] MEDS: Lactated Ringers 1,000 ML 100 ML IVCONT (10:06)
--- NOTE | 2024-07-27 10:44 | P.CONAN_ITS ---
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 Migraines Esophageal dysmotility Osteoporosis Arthritis Vestibular dizziness Osteoarthritis GERD (gastroesophageal reflux disease) Dry eye FMF (familial Mediterranean fever) Seasonal allergies Asthma Murmur Orthostatic hypotension QUEENIE (obstructive sleep apnea) Vitamin D deficiency 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 Mild intermittent asthma Hx of migraines Laryngospasm Family History Family History (Updated 07/13/24 @ 11:31 by Sandra Morrison, AUBRIE) Brother Factor V Leiden mutation Family history of problems with anesthesia: No Surgical History Surgical History (Updated 07/13/24 @ 11:34 by Sandra Morrison RN) Hx of wisdom tooth extraction History of esophagogastroduodenoscopy (EGD) Hx of colonoscopy Hx of jejunostomy Hx of ventral hernia repair H/O repair of rotator cuff History of carpal tunnel surgery of right wrist History of Krystina fundoplication Hx of appendectomy Hx of LASIK Hx of gastrostomy History of bunionectomy History of Problems with Anesthesia: No Social History Social History (Updated 07/13/24 @ 12:49 by Sandra Morrison, AUBRIE) Household Members: Spouse Household Members Other:: mother age 95 Are you a primary hospice care transitions coordinator to a significant other at home: Yes (mother) Do you presently have visiting nurse or other home services: No Patient Tobacco Use Status: Never used Tobacco Use of substances other than those prescribed or required for medical reasons: No Have you been hit, kicked, punched, or otherwise hurt by someone within the past year? If so, by whom?: No Are you DNR?: No Advance Directives: No (will bring dos) Advance Directives Information Provided: Yes Advance Directives on File: No Patient : No Poor oral hygiene: No Meds Allergies Allergy/AdvReac Type Severity Reaction Status Date / Time adhesive tape [ADHESIVE TAPE] Allergy Intermediate SKIN Verified 07/13/24 11:21 SENSITIVITY bupropion [From WELLBUTRIN] Allergy Intermediate HIVES Verified 07/13/24 11:21 ciprofloxacin [From CIPRO] Allergy Intermediate ACTIVATES Verified 07/13/24 11:21 LICHENS DISEASE metoclopramide [From REGLAN] Allergy Intermediate HIVES Verified 07/13/24 11:21 nizatidine [From AXID] Allergy Intermediate HIVES Verified 07/13/24 11:21 ranitidine [From ZANTAC] Allergy Intermediate HIVES Verified 07/13/24 11:21 sulfamethoxazole Allergy Intermediate CONNOLLY Verified 07/13/24 11:21 [From BACTRIM] ARCENIO SYNDROME trimethoprim [From BACTRIM] Allergy Intermediate CONNOLLY Verified 07/13/24 11:21 ARCENIO SYNDROME ALLEN Allergy Intermediate HIVES Uncoded 07/13/24 11:21 Home Medications ?Medication ?Instructions ?Recorded ?Confirmed ?Last Taken ?Type clobetasol 0.025 % topical cream 1 appl topical ONCE 06/14/24 07/13/24 Unknown History hydroxychloroquine 200 mg tablet 200 mg PO BEDTIME 06/14/24 07/13/24 Unknown History (Plaquenil) irbesartan 75 mg tablet 75 mg PO BEDTIME 06/14/24 07/13/24 Unknown History pantoprazole 40 mg tablet,delayed 40 mg PO BEDTIME 06/14/24 07/13/24 Unknown History release perfluorohexyloctane (PF) 100 % 1 drp ophthalmic (eye) QID 06/14/24 07/13/24 Unknown History eye drops (Miebo (PF)) topiramate 100 mg tablet 100 mg PO BEDTIME 06/14/24 07/13/24 Unknown History Probiotic 1 gummy PO BEDTIME 07/12/24 07/13/24 Unknown History fluticasone furoate 200 1 inh inhalation DAILY 07/12/24 07/13/24 02/05/24 History mcg/actuation blister powder for inhalation (Arnuity Ellipta) naloxegol 12.5 mg tablet (Movantik) 12.5 mg PO BEDTIME 07/12/24 07/13/24 Unknown History varenicline tartrate 0.03 mg/spray 1 spray intranasal BID 07/12/24 07/13/24 Unknown History metered nasal spray (Tyrvaya) cholecalciferol (vitamin D3) 50 150 mcg PO BEDTIME 07/13/24 07/13/24 Unknown History mcg (2,000 unit) tablet (Vitamin D3) Exam Pertinent Lab Results Pertinent Lab Results: Lab Results 07/13/24 Range/Units 13:01 WBC 6.2 (4.8-10.8) X10*3/uL RBC 4.29 (4.20-5.50) X10*6/uL Hgb 13.4 (12.0-16.0) g/dl Hct 40.4 (37.0-47.0) % MCV 94.2 (80.0-98.0) fL MCH 31.2 (27.0-33.0) pg MCHC 33.2 (31.0-35.0) g/dl RDW 13.2 (11.0-16.0) % Plt Count 257 (160-400) X10*3/uL MPV 9.8 (9.4-12.3) fL Absolute Nucleated RBC 0.000 (0.0-0.012) X10*3/uL Nucleated RBC % (auto) 0.0 (0.0-0.2) /100WBC Sodium 139 (135-145) mmol/L Potassium 3.7 (3.3-5.1) mmol/L Chloride 108 (96-108) mmol/L Carbon Dioxide 25 (22-29) mmol/L Anion Gap 10 L (12-20) BUN 17 H (9-16) mg/dL Creatinine 0.83 (0.5-1.4) mg/dL Estim Creat Clear Calc 56.1 Estimated GFR > 60 Random Glucose 91 (60-115) mg/dL Calcium 9.3 (8.4-10.2) mg/dL Narrative Narrative: EKG 07/2024 Vent. Rate : 66 BPM Atrial Rate : 66 BPM P-R Int : 154 ms QRS Dur : 96 ms QT Int : 464 ms P-R-T Axes : 57 20 113 degrees QTcB Int : 486 ms Normal sinus rhythm T inversion lateral leads, possible ischemia Abnormal ECG No previous ECGs available Airway Mallampati Class: II TM Dist: >3cm Neck ROM: Full Loose/Missing/Broken Teeth: Yes (missing and crowns throughout) Heart: RRR slight murmur Lungs: CTAB Assessment and Plan Assessment Anesthesia Assessment: Anesthesia Plan Discussed and PAT Visit Final Anesthetic Review Family History of Problems with Anesthesia: No History of Problems with Anesthesia: No Documented by User: Corin Vanessa DO 07/27/24 10:53 [facility] Past Medical History Medical History (Updated 07/13/24 @ 12:28 by Sandra Morrison RN) History of TMJ disorder Fuchs' corneal dystrophy of both eyes Sensorineural hearing loss (SNHL) of both ears Dyskinesia of esophagus Mixed hyperlipidemia Hypertensive chronic kidney disease 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 Migraines Esophageal dysmotility Osteoporosis Arthritis Vestibular dizziness Osteoarthritis GERD (gastroesophageal reflux disease) Dry eye FMF (familial Mediterranean fever) Seasonal allergies Asthma Murmur Orthostatic hypotension QUEENIE (obstructive sleep apnea) Vitamin D deficiency 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 Mild intermittent asthma Hx of migraines Laryngospasm Family History Family History (Updated 07/13/24 @ 11:31 by Sandra Morrison RN) Brother Factor V Leiden mutation Family history of problems with anesthesia: No Surgical History Surgical History (Updated 07/13/24 @ 11:34 by Sandra Morrison RN) Hx of wisdom tooth extraction History of esophagogastroduodenoscopy (EGD) Hx of colonoscopy Hx of jejunostomy Hx of ventral hernia repair H/O repair of rotator cuff History of carpal tunnel surgery of right wrist History of Krystina fundoplication Hx of appendectomy Hx of LASIK Hx of gastrostomy History of bunionectomy History of Problems with Anesthesia: No Social History Social History (Updated 05/09/25 @ 12:49 by Sandra Morrison RN) Household Members: Spouse Household Members Other:: mother age 95 Are you a primary hospice care transitions coordinator to a significant other at home: Yes (mother) Do you presently have visiting nurse or other home services: No Patient Tobacco Use Status: Never used Tobacco Use of substances other than those prescribed or required for medical reasons: No Have you been hit, kicked, punched, or otherwise hurt by someone within the past year? If so, by whom?: No Are you DNR?: No Advance Directives: No (will bring dos) Advance Directives Information Provided: Yes Advance Directives on File: No Patient : No Poor oral hygiene: No Meds Allergies Allergy/AdvReac Type Severity Reaction Status Date / Time adhesive tape [ADHESIVE TAPE] Allergy Intermediate SKIN Verified 07/13/24 11:21 SENSITIVITY bupropion [From WELLBUTRIN] Allergy Intermediate HIVES Verified 07/13/24 11:21 ciprofloxacin [From CIPRO] Allergy Intermediate ACTIVATES Verified 07/13/24 11:21 LICHENS DISEASE metoclopramide [From REGLAN] Allergy Intermediate HIVES Verified 07/13/24 11:21 nizatidine [From AXID] Allergy Intermediate HIVES Verified 07/13/24 11:21 ranitidine [From ZANTAC] Allergy Intermediate HIVES Verified 07/13/24 11:21 sulfamethoxazole Allergy Intermediate CONNOLLY Verified 07/13/24 11:21 [From BACTRIM] ARCENIO SYNDROME trimethoprim [From BACTRIM] Allergy Intermediate CONNOLLY Verified 07/13/24 11:21 ARCENIO SYNDROME ALLEN Allergy Intermediate HIVES Uncoded 07/13/24 11:21 Home Medications ?Medication ?Instructions ?Recorded ?Confirmed ?Last Taken ?Type clobetasol 0.025 % topical cream 1 appl topical ONCE 06/14/24 07/13/24 Unknown History hydroxychloroquine 200 mg tablet 200 mg PO BEDTIME 06/14/24 07/13/24 Unknown History (Plaquenil) irbesartan 75 mg tablet 75 mg PO BEDTIME 06/14/24 07/13/24 Unknown History pantoprazole 40 mg tablet,delayed 40 mg PO BEDTIME 06/14/24 07/13/24 Unknown History release perfluorohexyloctane (PF) 100 % 1 drp ophthalmic (eye) QID 06/14/24 07/13/24 Unknown History eye drops (Miebo (PF)) topiramate 100 mg tablet 100 mg PO BEDTIME 06/14/24 07/13/24 Unknown History Probiotic 1 gummy PO BEDTIME 07/12/24 07/13/24 Unknown History fluticasone furoate 200 1 inh inhalation DAILY 07/12/24 07/13/24 02/05/24 History mcg/actuation blister powder for inhalation (Arnuity Ellipta) naloxegol 12.5 mg tablet (Movantik) 12.5 mg PO BEDTIME 07/12/24 07/13/24 Unknown History varenicline tartrate 0.03 mg/spray 1 spray intranasal BID 07/12/24 07/13/24 Unknown History metered nasal spray (Tyrvaya) cholecalciferol (vitamin D3) 50 150 mcg PO BEDTIME 07/13/24 07/13/24 Unknown History mcg (2,000 unit) tablet (Vitamin D3) Exam Exam Date and Time: 07/27/24 1020 Height,Weight and Vital Signs: Height 4 ft 11 in Weight 66.678 kg Vital Signs Pulse Rate 67 07/13/24 12:29 Respiratory Rate 16 07/13/24 12:29 Blood Pressure 136/71 07/13/24 12:29 Pulse Oximetry 98 07/13/24 12:29 Oxygen Delivery Method Room Air 07/13/24 12:29 Temperature 98.1 F 07/27/24 09:41 Pulse Rate 69 07/27/24 09:41 Respiratory Rate 12 07/27/24 09:41 Blood Pressure 131/63 07/27/24 09:41 Pulse Oximetry 99 07/27/24 09:41 Oxygen Delivery Method Room Air 07/27/24 09:41 Airway Mallampati Class: II TM Dist: >3cm Neck ROM: Full Loose/Missing/Broken Teeth: Yes (multiple missing teeth) Heart: S1S2, slight murmur Assessment and Plan Assessment Anesthesia Assessment: Anesthesia Plan Discussed and Chart Reviewed Final Anesthetic Review Family History of Problems with Anesthesia: No History of Problems with Anesthesia: No NPO: Yes ASA Class: III Final Preanesthetic Review: No Changes in Pt Med Stat, Meds/Allgs Chart Reviewed, Consent Obtained/Reviewed and Anes Risks/Benef Reviewed Patient Risk: Low Procedure Risk: Intermediate Anesthetic Plan Anesthetic Plan: MAC: and Agree w/ Assess. and Plan Disposition: Standard PACU
[2024-07-27] MEDS: ceFAZolin Sodium/Dextrose,Iso 2 GM/50 ML PIGGYBACK IV (10:50)
[2024-07-27] MEDS: cefTRIAXone sodium 1 GM VIAL IVPUSH (12:48)
--- NOTE | 2024-07-27 12:54 | P.BOP_ITS ---
Brief Operative Note Date of Service: 07/27/24 Pre-op diagnosis: Left shoulder impingement syndrome, left shoulder acromioclavicular joint arthritis, left shoulder rotator cuff tear Post-op diagnosis: same Procedure: Left shoulder arthroscopic distal clavicle excision, left shoulder arthroscopic acromioplasty, left shoulder mini open rotator cuff repair Implants: 1 suture anchor (Griffin and Nephew Twinfix anchor with #2 Ultrabraid suture) Surgeon: Roger Daley MD Anesthesia: GETA and regional Was an Computer Forensics Investigator used for this Procedure?: No Estimated blood loss (mL): 15 Pathology: none sent Condition: stable Disposition: PACU
--- NOTE | 2024-07-27 12:55 | P.OP_ITS ---
Operative Note Operative Note Date of Service: 07/27/24 Narrative: After the patient was identified as Viktoria Pisano and her left shoulder was initialed by myself the patient was brought to the holding area where a left shoulder interscalene regional block was performed by the anesthesiologist in routine fashion. The patient was then brought to the operating room where general anesthesia was induced by the anesthesiologist in routine fashion. The patient was given 2 g of IV Ancef preoperatively for infection prophylaxis. Examination under anesthesia of the patient's left shoulder showed full passive range of motion of the patient's left shoulder when compared to the right. The patient was gently positioned in the beach chair position with all bony prominences well padded. The patient's left shoulder region and upper extremity were prepped and draped in sterile fashion. A formal time-out was completed. A #11 scalpel blade was used to make a posterior portal 2 cm inferior and 1 cm medial to the posterolateral corner of the acromion. Blunt trocar technique was used to enter the glenohumeral joint in routine fashion. An anterior portal was made just lateral to the coracoid process after proper positioning was confirmed using a spinal needle. Diagnostic arthroscopy showed minimal degenerative changes of the glenoid and humeral head articular surfaces. There was a full- thickness tear of the supraspinatus tendon. There was no evidence of injury to the biceps tendon or its insertion onto the glenoid. There was no inflammation of the anterior joint capsule. The arthroscope was then placed from the posterior portal into the subacromial space. A lateral portal was made 2 fingerbreadths lateral to the anterior lateral corner of the acromion. The ArthroCare Wand was used to ablate soft tissues along the undersurface of the acromion as well as to excise the coracoacromial ligament. There was a sharp spur along the undersurface of the acromion which was removed using the hooded bur. The arthroscope was then placed into the lateral portal and the ac romioplasty was completed with the bur in the posterior portal using the posterior aspect of the acromion as a cutting block. The ArthroCare Wand was then brought in through the anterior portal and was used to ablate soft tissues along the acromioclavicular joint and distal clavicle. The posterior and superior ligamentous structures were left intact. A distal clavicle excision of 4 mm was performed using the hooded bur. Any remaining bursal tissue was removed using the arthroscopic shaver. The subacromial space was irrigated and then drained. All arthroscopic instruments were removed. Sterile gloves were changed and the shoulder was once again prepped with Betadine. A #15 scalpel blade was used to extend the lateral portal to the lateral edge of the acromion. The subacromial tissues were dissected using electrocautery down to the superficial deltoid fascia. The trocar split in the anterior raphe of the deltoid was then extended to the lateral edge of the acromion using electr ocautery and curved Rowland scissors. Any remaining bursal tissue was removed using curved Rowland scissors. Subacromial and subdeltoid adhesions were bluntly dissected. The undersurface of the acromion was palpated and it was smooth. A #2 Ethibond tag suture was placed into the supraspinatus tendon. The tendon was easily mobilized to its insertion point on the glenoid. The wound was irrigated with copious amounts of normal saline solution. One suture anchor was placed into the greater tuberosity in routine fashion. The rotator cuff repair was then performed using horizontal mattress sutures under minimal tension with the patient's elbow at their side. Following the repair the shoulder was taken through a full range of motion. The repair was stable. The wound was irrigated with copious amounts of normal saline solution. The superficial and deep deltoid fascia were closed with #1 Vicryl [id number] interrupted suture. The wound was once again irrigated. The subcutaneous tissues were closed with 2-0 Vicryl interrupted suture. The skin was closed with 3-0 Prolene subcuticular suture and Steri-Strips. The anterior and posterior portals were closed with 3-0 nylon interrupted suture. Dry sterile dressing was placed over all incisions. The patient's left upper extremity was placed into a sling. The patient was awoken and extubated in the operating room. The patient was transferred to the recovery room in stable condition.
== END 2024-07-27 14:17 | disposition home or self-care (01) ==
PROVIDERS: Nurse Practitioner; PCP Internal Medicine; Visit Provider Orthopaedic Surgery
PROC: (CPT 23412; principal; 2024-07-27 11:00)
DX: S46.012A Strain of muscle(s) and tendon(s) of the rotator cuff of left shoulder, initial encounter (principal); X58.XXXA Exposure to other specified factors, initial encounter; Y93.89 Activity, other specified; Y92.9 Unspecified place or not applicable; Y99.9 Unspecified external cause status; M75.42 Impingement syndrome of left shoulder; M25.312 Other instability, left shoulder; M19.012 Primary osteoarthritis, left shoulder; G47.33 Obstructive sleep apnea (adult) (pediatric); Z79.899 Other long term (current) drug therapy; L23.1 Allergic contact dermatitis due to adhesives; Z88.1 Allergy status to other antibiotic agents; Z88.2 Allergy status to sulfonamides; Z88.8 Allergy status to other drugs, medicaments and biological substances
CPT/HCPCS: 23412; 29824; 29826; 36415; 80048; 85027; 93005; C1713; J0131; J0171; J0690; J0696; J1100; J2003; J2250; J2371; J2405; J2704; J2795

== ENCOUNTER → 2024-07-27 09:01 | Outpatient (BNV) | payer MEDICARE, OTHER, SELFPAY | PROVIDERS: PCP Internal Medicine; Visit Provider Orthopaedic Surgery | DX: S46.012A Strain of muscle(s) and tendon(s) of the rotator cuff of left shoulder, initial encounter (principal); M75.42 Impingement syndrome of left shoulder; M19.012 Primary osteoarthritis, left shoulder | CPT/HCPCS: 23412; 29824 ==

== ENCOUNTER 2024-08-09 11:13 | Outpatient (AMB) | payer MEDICARE, OTHER, SELFPAY ==
--- NOTE | 2024-08-09 11:18 | MHC.OFFVIS ---
Intake Visit Reasons: PO LT shoulder & RTC 07/27/24 DR Intake Note: Viktoria is a 63 year old who presents with complaints of mild to moderate discomfort in her left shoulder after undergoing left shoulder rotator cuff repair surgery on 07/27/2024. She has been resting her shoulder as per my instructions. She does take oxycodone as needed. She denies any fevers or chills. Allergies adhesive tape [ADHESIVE TAPE] Allergy (Intermediate, Verified 08/09/24 11:33) SKIN SENSITIVITY bupropion [From WELLBUTRIN] Allergy (Intermediate, Verified 08/09/24 11:33) HIVES ciprofloxacin [From CIPRO] Allergy (Intermediate, Verified 08/09/24 11:33) ACTIVATES LICHENS DISEASE metoclopramide [From REGLAN] Allergy (Intermediate, Verified 08/09/24 11:33) HIVES nizatidine [From AXID] Allergy (Intermediate, Verified 08/09/24 11:33) HIVES ranitidine [From ZANTAC] Allergy (Intermediate, Verified 08/09/24 11:33) HIVES sulfamethoxazole [From BACTRIM] Allergy (Intermediate, Verified 08/09/24 11:33) CONNOLLY ARCENIO SYNDROME trimethoprim [From BACTRIM] Allergy (Intermediate, Verified 08/09/24 11:33) CONNOLLY ARCENIO SYNDROME ALLEN Allergy (Intermediate, Uncoded 08/09/24 11:33) HIVES Medication List - Last Reconciled 08/09/24 by Roger Daley MD cholecalciferol (vitamin D3) (Vitamin D3) 150 mcg PO BEDTIME clobetasol 0.025% 1 appl topical ONCE fluticasone furoate 200 mcg/actuation (Arnuity Ellipta) 1 inh inhalation DAILY hydroxychloroquine (Plaquenil) 200 mg PO BEDTIME irbesartan 75 mg PO BEDTIME naloxegol (Movantik) 12.5 mg PO BEDTIME oxycodone 10 mg (2 x 5 mg) PO Q4H PRN pantoprazole 40 mg PO BEDTIME perfluorohexyloctane (PF) 100% (Miebo (PF)) 1 drp ophthalmic (eye) QID [Probiotic 1 gummy PO BEDTIME] topiramate 100 mg PO BEDTIME varenicline tartrate (Tyrvaya) 1 spray intranasal BID PFSH Medical History (Updated 08/09/24 @ 12:40 by Roger Daley MD) History of TMJ disorder Fuchs' corneal dystrophy of both eyes Sensorineural hearing loss (SNHL) of both ears Dyskinesia of esophagus Mixed hyperlipidemia Hypertensive chronic kidney disease 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 Migraines Esophageal dysmotility Osteoporosis Arthritis Vestibular dizziness Osteoarthritis GERD (gastroesophageal reflux disease) Dry eye FMF (familial Mediterranean fever) Seasonal allergies Asthma Murmur Orthostatic hypotension QUEENIE (obstructive sleep apnea) Vitamin D deficiency 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 Mild intermittent asthma Hx of migraines Laryngospasm Surgical History (Updated 07/13/24 @ 11:34 by Sandra Morrison RN) Hx of wisdom tooth extraction History of esophagogastroduodenoscopy (EGD) Hx of colonoscopy Hx of jejunostomy Hx of ventral hernia repair H/O repair of rotator cuff History of carpal tunnel surgery of right wrist History of Krystina fundoplication Hx of appendectomy Hx of LASIK Hx of gastrostomy History of bunionectomy Family History (Updated 07/13/24 @ 11:31 by Sandra Morrison RN) Brother Factor V Leiden mutation Social History (Updated 07/13/24 @ 12:49 by Sandra Morrison RN) Household Members: Spouse Household Members Other:: mother age 95 Are you a primary special needs child caregiver to a significant other at home: Yes (mother) Do you presently have visiting nurse or other home services: No Patient Tobacco Use Status: Never used Tobacco Physical Exam Extrem Other: Left shoulder examination shows that the surgical incisions are healing well, no erythema, mild discomfort with gentle passive range of motion Assessment & Plan Assessment & Plan (1) Left shoulder pain: Code(s): M25.512 - Pain in left shoulder Category: Medical Plan Ms. Pisano is doing well after undergoing shoulder rotator cuff repair surgery on 07/27/2024. Her sutures were removed and Steri-Strips placed over her incisions. She does not wish to go to formal physical therapy at this time. Passive range of motion stretching exercises were demonstrated to the patient. I will hold off on active lifting until she is 8 weeks out from surgery. I will see her back at that time. I did refill her prescription for oxycodone. Feel free to call me at any time should questions regarding her orthopedic management arise. Medications: Changed From oxycodone Partial Fill upon patient request. Take 1-2 tabs every 4 hours as needed for pain following your left shoulder surgery. 10 mg (2 x 5 mg) PO Q4H PRN 40 tabs 0RF pain To oxycodone Partial Fill upon patient request. Take 1 every 4 hours as needed for pain following your left shoulder surgery. 5 mg PO Q4H PRN 40 tabs 0RF pain Coding Level of Care Code Global (34414) Diagnoses Left shoulder pain M25.512
--- OUTSIDE RECORDS SUMMARY | 2024-08-09 13:22 | XMS_ITS | Clinical Summary ---
Author Organization [employer] [facility] ity Address [address] [place] [address] Care Team Providers Care Cotton Wringer Name Role Phone Joan Powers MD Primary Care Provider [phone] Medications pantoprazole (PROTONIX) 40 mg EC tabletIndication s:Gastroesophage al reflux disease without esophagitis TAKE 1 TABLET BY MOUTH EVERY DAY 90 tablet 06/15/2024 Active Surgical History Surgery Date Site/Laterality Comments APPENDECTOMY PROCEDURE: MS APPENDECTOMY BUNIONECTOMY PROCEDURE: BUNION SURGERY, SIMPLE REMOVAL OTHER SURGICAL HISTORY PROCEDURE: MS LAPS SURG GASTROSTOMY W/O CONSTJ GSTR TUBE SPX CARPAL TUNNEL RELEASE PROCEDURE: HISTORICAL CARPAL TUNNEL REL HERNIA REPAIR PROCEDURE: HISTORICAL HERNIA REPAIR/FRANCINE ROTATOR CUFF REPAIR PROCEDURE: HISTORICAL ROTATOR CUFF REPAIR Medical History Medical History Date Comments Laryngospasm DX:Laryngospasm Headache, migraine DX:Headache, migraine Asthma DX:Asthma 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 ([facility] V24, [facility] V28) DX: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 ease ([facility]) Bronchitis DX:Bronchitis Vitamin D deficiency DX:Vitamin D [...] Documents on File Type Date Recorded Patient Forge Heater Expl anation Health Care Decision (hx) 06/06/2014 AD BELLO DIRECTIVE Health Care Decision (hx) 06/06/2014 AD BELLO DIRECTIVE Health Care Decision (hx) 06/06/2014 AD BELLO DIRECTIVE Health Care Decision (hx) 06/06/2014 AD BELLO DIRECTIVE Health Care Decision (hx) 06/06/2014 AD BELLO DIRECTIVE Health Care Decision (hx) 06/06/2014 AD BELLO DIRECTIVE Health Care Decision (hx) 06/06/2014 AD BELLO DIRECTIVE Care Teams Cotton Wringer Relationship Specialty Start Date End Date Joan Powers MD PCP - General Internal Medicine 11/14/17
== END 2024-08-09 11:55 | disposition home or self-care (01) ==
LOC: HO.HOS 11:14
PROVIDERS: PCP Internal Medicine; Visit Provider Orthopaedic Surgery
DX: M25.512 Pain in left shoulder (principal)
CPT/HCPCS: 99024

== ENCOUNTER → 2024-08-09 11:13 | Outpatient (BNVA) | payer MEDICARE, OTHER, SELFPAY | PROVIDERS: PCP Internal Medicine; Visit Provider Orthopaedic Surgery | DX: M25.512 Pain in left shoulder (principal) | CPT/HCPCS: 99212 ==

== ENCOUNTER 2024-09-27 14:16 | Outpatient (AMB) | payer MEDICARE, OTHER, SELFPAY ==
--- OUTSIDE RECORDS SUMMARY | 2024-09-27 14:18 | XMS_ITS | Clinical Summary ---
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 Role Phone Joan Powers MD Primary Care Provider [phone] Medications pantoprazole (PROTONIX) 40 mg EC tabletIndication s:Gastroesophage al reflux disease without esophagitis TAKE 1 TABLET BY MOUTH EVERY DAY 90 tablet 06/15/2024 Active Surgical History Surgery Date Site/Laterality Comments APPENDECTOMY PROCEDURE: DC APPENDECTOMY BUNIONECTOMY PROCEDURE: BUNION SURGERY, SIMPLE REMOVAL OTHER SURGICAL HISTORY PROCEDURE: DC LAPS SURG GASTROSTOMY W/O CONSTJ GSTR TUBE SPX CARPAL TUNNEL RELEASE PROCEDURE: HISTORICAL CARPAL TUNNEL REL HERNIA REPAIR PROCEDURE: HISTORICAL HERNIA REPAIR/FRANCINE ROTATOR CUFF REPAIR PROCEDURE: HISTORICAL ROTATOR CUFF REPAIR Medical History Medical History Date Comments Laryngospasm DX:Laryngospasm Headache, migraine DX:Headache, migraine Asthma DX:Asthma 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 ([facility] V24, [facility] V28) DX: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 ease ([facility]) Bronchitis DX:Bronchitis Vitamin D deficiency DX:Vitamin D [...] DTaP,Tdap,and Td Vaccines (1 - Tdap) 1977 Zoster Vaccines (1 of 2) 1977 Cervical Cancer Screening: P ap Smear 10/23/1979 Pneumococcal Vaccine: 50+ Ye ars (1 of 1 - PCV) 2008 Colorectal Cancer Screening: Colonoscopy 02/03/2022 Hepatitis C Screening 02/03/2022 Osteoporosis Screening (Bone Density Screening) 02/03/2022 Social Influencers of Health Screening 02/03/2022 Falls Risk Assessment 10/23/2023 Depression Screening 03/07/2024 Influenza Vaccine (#1) 2024 RSV Immunization Adult Patie nts (1 [...] Documents on File Type Date Recorded Patient Pad Tufter Expl anation Health Care Decision (hx) 06/06/2014 AD BELLO DIRECTIVE Health Care Decision (hx) 06/06/2014 AD BELLO DIRECTIVE Health Care Decision (hx) 06/06/2014 AD BELLO DIRECTIVE Health Care Decision (hx) 06/06/2014 AD BELLO DIRECTIVE Health Care Decision (hx) 06/06/2014 AD BELLO DIRECTIVE Health Care Decision (hx) 06/06/2014 AD BELLO DIRECTIVE Health Care Decision (hx) 06/06/2014 AD BELLO DIRECTIVE Care Teams 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
--- NOTE | 2024-09-27 14:20 | A.OFFVIS_ITS ---
Vital Signs 09/27/24 14:25 Height 4 ft 11 in Weight 147 lb BMI 29.7 Intake Visit Reasons: PO: LT shoulder & RTC 07/27/24 DR Intake Note: Viktoria is a 63 year old who presents with complaints of mild to moderate discomfort in her left shoulder after undergoing left shoulder rotator cuff repair surgery on 07/27/2024. She has been doing gentle passive range motion exercises on her own. She would like to go to formal physical therapy. She is no longer taking narcotics for her discomfort. Allergies adhesive tape (ADHESIVE TAPE) Allergy (Intermediate, Verified 09/27/24 14:24) SKIN SENSITIVITY bupropion (From WELLBUTRIN) Allergy (Intermediate, Verified 09/27/24 14:24) HIVES ciprofloxacin (From CIPRO) Allergy (Intermediate, Verified 09/27/24 14:24) ACTIVATES LICHENS DISEASE metoclopramide (From REGLAN) Allergy (Intermediate, Verified 09/27/24 14:24) HIVES nizatidine (From AXID) Allergy (Intermediate, Verified 09/27/24 14:24) HIVES ranitidine (From ZANTAC) Allergy (Intermediate, Verified 09/27/24 14:24) HIVES sulfamethoxazole (From BACTRIM) Allergy (Intermediate, Verified 09/27/24 14:24) CONNOLLY ARCENIO SYNDROME trimethoprim (From BACTRIM) Allergy (Intermediate, Verified 09/27/24 14:24) CONNOLLY ARCENIO SYNDROME ALLEN Allergy (Intermediate, Uncoded 08/09/24 11:33) HIVES Medication List - Last Reconciled 09/27/24 by Roger Daley MD cholecalciferol (vitamin D3) (Vitamin D3) 150 mcg PO BEDTIME clobetasol 0.025% 1 appl topical ONCE fluticasone furoate 200 mcg/actuation (Arnuity Ellipta) 1 inh inhalation DAILY hydroxychloroquine (Plaquenil) 200 mg PO BEDTIME irbesartan 75 mg PO BEDTIME naloxegol (Movantik) 12.5 mg PO BEDTIME oxycodone 5 mg PO Q4H PRN pantoprazole 40 mg PO BEDTIME perfluorohexyloctane (PF) 100% (Miebo (PF)) 1 drp ophthalmic (eye) QID [Probiotic 1 gummy PO BEDTIME] topiramate 100 mg PO BEDTIME varenicline tartrate (Tyrvaya) 1 spray intranasal BID PFSH Medical History (Updated 08/09/24 @ 12:40 by Roger Daley MD) History of TMJ disorder Fuchs' corneal dystrophy of both eyes Sensorineural hearing loss (SNHL) of both ears Dyskinesia of esophagus Mixed hyperlipidemia Hypertensive chronic kidney disease 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 Migraines Esophageal dysmotility Osteoporosis Arthritis Vestibular dizziness Osteoarthritis GERD (gastroesophageal reflux disease) Dry eye FMF (familial Mediterranean fever) Seasonal allergies Asthma Murmur Orthostatic hypotension QUEENIE (obstructive sleep apnea) Vitamin D deficiency 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 Mild intermittent asthma Hx of migraines Laryngospasm Surgical History (Updated 07/13/24 @ 11:34 by Sandra Morrison RN) Hx of wisdom tooth extraction History of esophagogastroduodenoscopy (EGD) Hx of colonoscopy Hx of jejunostomy Hx of ventral hernia repair H/O repair of rotator cuff History of carpal tunnel surgery of right wrist History of Krystina fundoplication Hx of appendectomy Hx of LASIK Hx of gastrostomy History of bunionectomy Family History (Updated 07/13/24 @ 11:31 by Sandra Morrison RN) Brother Factor V Leiden mutation Social History Household Members: Spouse Household Members Other:: mother age 95 Are you a primary respiratory care technician to a significant other at home: Yes (mother) Do you presently have visiting nurse or other home services: No Patient Tobacco Use Status: Never used Tobacco Physical Exam Vital Signs: BMI result Body Mass Index 29.7 Extrem Other: Left shoulder examination shows that the surgical incisions are well healed, no erythema, almost full passive range of motion when compared to her right shoul angeli, minimal discomfort with resisted internal and external rotation Assessment & Plan Assessment & Plan (1) Left shoulder pain: Code(s): M25.512 - Pain in left shoulder Category: Medical Plan Ms. Pisano continues to do well after undergoing left shoulder rotator cuff repair surgery on 07/27/2024. I did give her a prescription to go to formal physical therapy for passive range of motion exercises and gentle active range of motion exercises. The do's and don'ts of lifting were discussed at length with the patient. She will contact me prior to her follow-up appointment in 2 months should any questions or concerns arise. Feel free to call me at any time should questions regarding her orthopedic management arise. Orders: Orders PT Evaluation and Treatment 09/28/24 M25.312 - Other instability, left shoulder, M25.512 - Pain in left shoulder Coding Level of Care Code Global (87571) Diagnoses Left shoulder pain M25.512
--- OUTSIDE RECORDS SUMMARY | 2024-09-27 14:20 | XMS_ITS | Patient Health Record ---
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 . . 2-3x/week; Duration: 3-4 weeks 06/03/2016 Not-Taking Topamax Not-Taking Linzess 145 MCG Orally Not- Taking Gabapentin 300 MG 1 capsule Orally Three times a day 04/28/2016 Not-Taking ProAir HFA Not-Takin g Reclast Not-Taking Prolia Not-Taking Plaquenil Not-Taking Vitamin D3 Active Calcium Active Ibuprofen 800 MG 1 tablet Orally Three times a day; Duration: 14 days 01/06/2016 Not-Taking Hydrocortisone 1 % 1 application to affected area Externally Twice a day to affected areas on feet; Duration: 30 days 02/19/2016 Not-Taking Ciclopirox Olamine 0.77% external Apply to effected areas twice a day; Duration: 30 days 04/01/2016 Not-Taking Movantik 12.5 MG 1 tablet in the morning Orally Once a day; Duration: 30 day(s) Active Vicodin 5-300 MG 1 tablet as needed Orally every 6 hrs 01/06/2016 Not-Taking Hydroxychloroquine Sulfate 200 MG as directed Orally Active Amitiza 24 MCG 1 capsule with food Orally Twice a day Not-Taking Physical Therapy . . . 2-3x/week; Duration: 3-4 weeks 02/26/2016 Not-Taking Albuterol Sulfate Ac tive Linaclotide 290 MCG 1 capsule Orally Once a day Not-Taking Arnuity Ellipta Acti ve Osphena 60 MG 1 tablet with food Orally Once a day Not-Taking Topiramate 100 MG 1 tablet Orally Once a day; Duration: 30 day(s) Active Nortriptyline HCl 10 MG as directed Orally Active Mitigare 0.6 MG 1 capsule Orally Once a day Not-Taking Walking Boot/Pneumatic As directed Wear Daily; Duration: Until further notice 01/16/2016 Not-Taking Vitamin D [...] Problem Status W/U Status Risk Notes Problem Acquired hammer toe of right foot (8735426851452 105) Hammer toe of right foot (M20.41) Active confirmed Problem Complex regional pain syndrome (disorder) (477850058) CRPS (complex regional pain syndrome) (G90.50) Active confirmed Plan Of Treatment Pending Test Test Name Order Date X ray : Foot, right 3V 02/19/2016 X ray : Foot, right 3V 04/01/2016 X ray : Foot, right 3V 07/22/2016 X ray : Foot, right 3V 07/23/2021 X ray : Foot, right 3V 08/17/2021 [id number] Plate 07/22/2016 [id number] TENDON SHEATH/LIGAMENT 0 06/17/2016 Insurance Providers Payer Name Payer Address Payer Phone Subscriber Number Group Number Insured Name Patient Relationship to Insured Coverage Start Date Coverage End Date [employer] [address] [place] [address] [id number] Viktoria Garcia Self - patient is the insured [employer] [address] [address] [place] [address] [id number] Viktoria Garcia Self - patient is the [...]
--- OUTSIDE RECORDS SUMMARY | 2024-09-27 14:20 | XMS_ITS | Patient Health Record ---
Author Organization [facility] Address [address] [place] [id number] Care Team Providers Care Convalescent Sitter Name Role Phone Joan Powers Primary Care Provider Ella Olsen Unavailable [phone] Allergies Allergen (clinical drug ingredient) Drug/Non Drug Allergy documented on EMR Reaction Allergy Type Onset Date Status Cipro Unknown Drug Allergy Active metoclopramide Reglan Unknown Drug Allergy Ac tive Wellbutrin Unknown Drug Allergy Active Axid Unknown Drug Allergy Active ramipril Ramipril Cough Drug Allergy 03/09/2023 Active Sulfamethoxazole ?[place] Syndrome? Drug Allergy Active trimethoprim Trimethoprim ?[place]ons Syndrome? Drug Allergy Active Zinc Unknown Drug Allergy Inactiv e Results Component Value Reference Range Notes Dexa Bone Density (Axial) Reviewed date:01/20/2024 09:26:49 AM Interpretation: Performing Lab: Notes/Report: NM Bone and/or Joint Whole B kourtney [...] anterior seventh rib fracture. Degenerative changes. WSN: [id number] Ordering Physician: Joan Powers Dictated By: [facility] CHRISTINA, [place] ABRAHAM Bone Scan Three Phase Reviewed date:06/14/2024 10:46:13 AM Interpretation: Performing Lab: Notes/Report: CR Chest Routine 2 Views Reviewed date:05/23/2024 06:06:48 AM Interpretation: Performing Lab: Notes/Report: MR Shoulder LT WO Reviewed date:06/07/2024 01:27:45 PM Interpretation: Performing Lab: Notes/Report: MR Shoulder Left Reviewed date:06/24/2024 03:26:25 PM Interpretation: Performing Lab: Notes/Report: Original Report PROCEDURE: [...] and Electronically Signed by: Lenin Saavedra M.D. LP+Non-HDL Cholesterol-[id number] 5 Reviewed date:12/28/2023 06:26:36 PM Interpretation: Performing Lab:[facility], [facility], Phone - [phone], Director - MDJodry Notes/Report: Cholesterol, Total 234 100-199 mg/dL Triglycerides 78 0-149 mg/dL HDL Cholesterol 78 >39 mg/dL VLDL Cholesterol Shay 13 5-40 mg/dL LDL Chol Calc (NIH) 143 0-99 mg/dL Non-HDL Cholesterol 156 0-129 mg/dL Comp. Metabolic Panel ([id number] Reviewed date:12/28/2023 06:26:36 PM Interpretation: Performing Lab:[facility], [facility], Phone - [phone], Director - MDJodry Notes/Report: Glucose 97 70-99 mg/dL BUN 13 [...] 0-40 IU/L ALT (SGPT) 20 0-32 IU/L Albumin/Creatinine Ratio,Uri ne-[id number] Reviewed date:12/28/2023 06:26:36 PM Interpretation: Performing Lab:[facility], [facility], Phone - [phone], Director - TXBuster Notes/Report: Creatinine, Urine 139.8 Not Estab. mg/dL Albumin, Urine 6.1 Not Estab. ug/mL Alb/Creat Ratio 4 0-29 mg/g creat Normal: 0 - 29 Moderately increased: 30 - 300 Severely increased: >300 Vitamin D, 05-[id number] Reviewed date:12/28/2023 06:26:36 PM Interpretation: Performing Lab:[facility], [address] [place] [address], Phone - [phone], Director - Becky Notes/Report: Vitamin D, 25-Hydroxy 49.2 30.0-100.0 ng/mL Vitamin D deficiency has been defined by the [place] of [employer] and an Endocrine Society practice guideline as a level of serum 25-OH vitamin D less than 20 ng/mL (1,2). The Endocrine Society went on to further define vitamin D insufficiency as a level between 21 and 29 ng/mL (2). 1. IOM ([place] of [employer]). 2010. Dietary reference intakes for calcium and D. [place]: The National Academies Press. 2. Carla MF, Neri NC, Michelle MCLEOD, et al. Evaluation, treatment, and prevention of vitamin D deficiency: an Endocrine Society clinical practice guideline. JCEM. 2010; 96(7):1911-30. Urinalysis, Complete-[id number] Reviewed date:12/28/2023 06:26:36 PM Interpretation: Performing Lab:[facility], [address] [place] [address], Phone - [phone], Director - Becky Notes/Report: Specific [place] 1.020 1.005-1.030 pH 5.5 5.0-7.5 Urine-Color Yellow [...] seen /lpf Bacteria None seen None seen/Few Reason For Referral Reason Fourth and seventh [...] Provider Specialty Thoracic Yasmin daylin General Notes ASMTITACJes 0 05/2024 03:07:16 PM >faxed, Jes JEWELL 09/26/2024 04:10:27 PM >notes in chart Referral Priority Routine Reason Supraspinatus tendon tear faxed Diagnosis 1 Incomplete rotator c uff tear or rupture of left shoulder, not specified as traumatic (M75.112) Referral Organization [facility] Referring Provider First Name Joan Referring Provider Last Name Gio Referring Provider Speciality Internal edicine Referred Provider Roger Daley Referred Provider Specialty Orthopedic S urgery General Notes Jes JEWELL 0 05/2024 03:07:47 PM >faxed, Jes JEWELL 06/08/2024 09:03:37 AM >updated Dr. Daley fax number and refaxed, GLENNALUCERO Jes 09/26/2024 04:14:16 PM >note in chart Referral Priority Routine Medications Medication SIG (Take, Route, Frequency, Duration) Notes Start Date End Date Status Vitamin D 1000 UNIT 6 capsule Orally Onc e a day Active Breyna 80-4.5 MCG/ACT 2 Puffs Inhalation every 6 hours; Duration: 90 days As needed 07/24/2024 07/19/2025 Active Probiotic Active Plaquenil 200 MG 1 tablet with food o r milk Orally Once a day; Duration: 10 day(s) Active Arnuity Ellipta 200 MCG/ACT 1 puff Inhalation Once a day Active Tyrvaya 0.03 MG/ACT SPRAY 1 SPRAY INTO E ACH NOSTRIL TWICE A DAY; Duration: 60 Active Airsupra 90-80 MCG/ACT 2 puffs Inhalation Six times a day; Duration: 30 days As needed 08/03/2024 Active Irbesartan 75 MG TAKE 1 TABLET BY ALLISON TH EVERY DAY; Duration: 90 Active Restasis 0.05 % 1 drop into affected eye Ophthalmic Twice a day Not-Taking Movantik 12.5 MG TAKE 1 TABLET BY ALLISON TH EVERY DAY IN THE MORNING; Duration: 30 Active Topiramate 100 MG TAKE 1 TABLET BY ALLISON TH EVERY DAY; Duration: 90 Active Immunizations Vaccine Route Administration Date Status Comme nts Td (adult) preservative free Unknown 12/05/2000 Administered Td (adult) preservative free Unknown 04/28/2010 Administered Td (adult) preservative free IM Intramuscular 05/25/2019 Administered Pneumococcal polysaccharide PPV23 IM Intramuscular 06/22/2016 Administered Influenza-Afluria (IIV4) IM Intramuscular 12/21/2016 Admin istered Utarossto-5217-96 Afluria-Single IM Intramuscular 12/19/2017 Administered Zdjichboh-1360-63 Afluria-Single Unknown 12/10/2019 Administered Influenza, seasonal, injectable, preservative free, 4 yrs and above IM Intramuscular 02/12/2016 Administered RXUBG-10-Scgczgy Vaccine Unknown 04/20/2020 Administere d YHWGS-74-Bvfxtpv Vaccine Unknown 05/18/2020 Administere d HCFDJ-70-Wbpuion Vaccine Unknown 02/17/2021 Administere d *PREVNAR 20 IM Intramuscular 07/09/2024 Administered *Influenza-Quadrivalent IM Intramuscular 12/20/2022 Admini stered *Influenza-Medicare-AS IM Intramuscular 12/06/2018 Adminis tered *Influenza-Medicare-AS IM Intramuscular 01/25/2022 Adminis tered *Vgnciaqlb-Mxphceq-Owja Dose-65+ IM Intramuscular 12/27/2023 Administered Social History Tobacco Use: Social History [...] Status Risk Notes Problem Vitamin D deficiency (07224625) Vitamin D deficiency, unspecified (E55.9) Active confirmed Problem Mixed hyperlipidemia (053049810) Mixed hyperlipidemia (E78.2) Active confirmed Problem Chronic migraine without aura, non-intractable (815902315825952) Chronic migraine without aura, not intractable, without status migrainosus (G43.709) Active confirmed Problem Obstructive sleep apnea syndrome (06147354) Obstructive sleep apnea (adult) (pediatric) (G47.33) Active confirmed Problem Carpal tunnel syndrome (88243125) Carpal tunnel syndrome, unspecified upper limb (G56.00) Active confirmed Problem Sensorineural hearing loss of bilateral ears (disorder) (601780679) Sensorineural hearing loss, bilateral (H90.3) Active confirmed Problem Chronic kidney disease due to hypertension (017800990516336) Hypertensive chronic kidney disease with stage 1 through stage 4 chronic kidney disease, or unspecified chronic kidney disease (I12.9) Active confirmed Problem Orthostatic hypotension (34268828) Orthostatic hypotension (I95.1) Active confirmed Problem Mild intermittent asthma (713155821) Mild intermittent asthma, uncomplicated (J45.20) Active confirmed Problem Dyskinesia of esophagus (66502674) Dyskinesia of esophagus (K22.4) Active confirmed Problem Functional disorder of intestine (75290248) Functional intestinal disorder, unspecified (K59.9) Active confirmed Problem Polyarthritis (165482699) Polyarthritis, unspecified (M13.0) Active confirmed Problem Acquired hallux valgus (05371217) Hallux valgus (acquired), right foot (M20.11) Active confirmed Problem Non-traumatic partial tear of left rotator cuff (9984608831285199) Incomplete rotator cuff tear or rupture of left shoulder, not specified as traumatic (M75.112) Active confirmed Problem Osteoporosis (95818352) Other osteoporosis without current pathological fracture (M81.8) Active confirmed Problem Chronic kidney disease stage 2 (263484595) Chronic kidney disease, stage 2 (mild) (N18.2) Active confirmed Problem Family history of malignant neoplasm of gastrointestinal tract (594510424) Family history of malignant neoplasm of digestive organs (Z80.0) Active confirmed Problem Family history of malignant neoplasm of breast (706648257) Family history of malignant neoplasm of breast (Z80.3) Active confirmed Problem Gastrostomy present (158976962) Gastrostomy status (Z93.1) Active confirmed Problem 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 Problem Gastroesophageal reflux disease with esophagitis (disorder) (599343052) Gastro-esophageal reflux disease with esophagitis, without bleeding (K21.00) Active confirmed Vital Signs Heart Rate 74 /min 07/09/2024 Temperature 96.5 degrees Fahrenheit 07/09/2024 Blood pressure diastolic 66 mm Hg 07/09/2024 Oximetry 98 % 07/09/2024 Height 59.75 in 07/09/2024 Blood pressure systolic 116 mm Hg 07/09/2024 Weight 150 lbs 07/09/2024 BMI 29.54 kg/m2 07/09/2024 Encounters Encounter Location Date Provider Diagnosis Joan Powers MD [address] [id number] 01/02/2024 Joan Powers MD [address] [id number] 05/23/2024 Joan Powers Multiple fractures o f ribs, unspecified side, initial encounter for closed fracture S22.49XA Joan [facility] MD [address] [id number] 06/07/2024 Joan Powers Multiple fractures o f ribs, left side, sequela S22.42XS and Incomplete rotator cuff tear or rupture of left shoulder, not specified as traumatic M75.112 Joan [facility] MD [address] [id number] 06/08/2024 Joan Powers MD [address] [id number] 07/17/2024 Joan [facility] MD [address] [id number] 07/17/2024 Joan [facility] MD [address] [id number] 07/18/2024 Joan Powers Mild intermittent asthma, uncomplicated J45.20 Joan [facility] [address] [place] [address] [id number] 07/24/2024 Joan Powers MD [address] [id number] 05/17/2024 Ella Olsen Muscle spasm of back M62.830 ; Sprain of left rotator cuff capsule, initial encounter S43.422A and Other chest pain R07.89 Joan [facility] MD [address] [id number] 12/27/2023 Joan Powers Hypertensive chronic kidney disease with stage 1 [...] J45.21 and Encounter for immunization Z23 Joan Powers MD [address] [id number] 07/09/2024 Joan Powers Hypertensive chronic kidney disease with stage 1 [...] ; Vitamin D deficiency, unspecified E55.9 ; Family history of malignant neoplasm of digestive organs Z80.0 ; Family history of malignant neoplasm of breast Z80.3 ; Encounter for screening for malignant neoplasm of colon Z12.11 ; Encounter for screening mammogram for malignant neoplasm of breast Z12.31 ; Encounter for screening for osteoporosis Z13.820 ; Encounter for screening for cardiovascular disorders Z13.6 ; Encounter for immunization Z23 ; Encounter for antibody response examination Z01.84 ; Encounter for screening for other viral diseases Z11.59 and Sensorineural hearing loss, bilateral H90.3 Assessments Encounter Date Diagnosis (ICD Code) Assessment Notes Treatment Notes Treatment Clinical Notes Section Notes 12/27/2023 Hypertensive chronic kidney disease with stage [...] Continue control of hypertension as comorbidity 05/17/2024 Sprain of left rotator cuff capsule, [...] wait for MRI of the left shoulder. 06/07/2024 Incomplete rotator cuff tear or rupture [...] medical help or urgent care while in [place] and states that the pain has been [...] worsening symptoms while we wait for imaging 07/09/2024 Hypertensive chronic kidney disease with stage 1 through stage 4 chronic kidney disease, or unspecified chronic kidney disease (ICD-10 - I12.9) Stable at present both in office reading as well as at home readings. She is at a level that is consistent with the [employer] mine trial results. Continue same. 07/09/2024 Encounter for general adult medical examination without abnormal findings (ICD-10 - Z00.00) General healthcare up-to-date. Check routine labs. She already has a healthcare proxy in place. She has legal paperwork that her is the healthcare proxy 05/23/2024 Multiple fractures of ribs, unspecified side, initial encounter for closed fracture (ICD-10 - S22.49XA) 07/18/2024 Mild intermittent asthma, uncomplicated (ICD-10 - J45.20) Electronic Prior Authorization was requested for Airsupra 90-80 MCG/ACT Aerosol. Provider can order medication once approval received. 07/09/2024 Chronic kidney disease, stage 2 (mild) (ICD-10 - N18.2) Stable estimated GFR in the 70s. 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 She still has ongoing issues which she deals with on a daily basis 07/09/2024 Functional intestinal disorder, unspecified (ICD-10 - K59.9) Stable at present 07/09/2024 Dyskinesia of esophagus (ICD-10 - K22.4) Still intermittently present. She is otherwise doing okay 12/27/2023 Gastrostomy status (ICD-10 - Z93.1) Stable and unchanged. 12/27/2023 Obstructive sleep apnea (adult) (pediatric) (ICD-10 - G47.33) Stable at present. 07/09/2024 Gastrostomy status (ICD-10 - Z93.1) She still has her gastrostomy in place. She is not using it at the moment. 07/09/2024 Obstructive sleep apnea (adult) (pediatric) (ICD-10 - G47.33) Stable at present. 12/27/2023 Chronic migraine without aura, not intractable, without status migrainosus (ICD-10 - G43.709) Continues to have occasional headaches but under fair control with current medical therapy 12/27/2023 Mixed hyperlipidemia (ICD-10 - E78.2) Fair control and prior labs reviewed. Fortunately her calcium score was 0 therefore at the present time this does not need immediate adjustment of her medical therapy 07/09/2024 Chronic migraine without aura, not intractable, without status migrainosus (ICD-10 - G43.709) Stable at present. She continues to have occasional headaches. Under fair control. 12/27/2023 Gastro-esophageal reflux disease with esophagitis, without bleeding (ICD-10 - K21.00) Stable and unchanged. Can continue chronic PPI therapy based on history of esophagitis 07/09/2024 Mixed hyperlipidemia (ICD-10 - E78.2) Stable at present. Her calculated cardiovascular risk is 6.74%. Eventually she will need to adjust medical therapy including statin therapy to help lower her rate of progression. 12/27/2023 Vitamin D deficiency, unspecified (ICD-10 - E55.9) Stable on prior labs as reviewed. Continue vitamin D supplementation for goal level of 30+ 07/09/2024 Gastro-esophageal reflux disease with esophagitis, without bleeding (ICD-10 - K21.00) Occasionally still problematic but stable with current PPI therapy 07/09/2024 Vitamin D deficiency, unspecified (ICD-10 - E55.9) Stable on prior labs as reviewed. Recheck status and consider vitamin D supplementation for goal level of 30+ and if possible 50+ 12/27/2023 Mild intermittent asthma with (acute) exacerbation (ICD-10 - J45.21) 12/27/2023 Encounter for immunization (ICD-10 - Z23) 07/09/2024 Family history of malignant neoplasm of digestive organs (ICD-10 - Z80.0) Up-to-date on colonoscopy 07/09/2024 Family history of malignant neoplasm of breast (ICD-10 - Z80.3) Up-to-date on mammogram 07/09/2024 Encounter for screening for malignant neoplasm of colon (ICD-10 - Z12.11) Up-to-date on colon cancer screening 07/09/2024 Encounter for screening mammogram for malignant neoplasm of breast (ICD-10 - Z12.31) Up-to-date on breast cancer screening 07/09/2024 Encounter for screening for osteoporosis (ICD-10 - Z13.820) Up-to-date on osteoporosis screening 07/09/2024 Encounter for screening for cardiovascular disorders (ICD-10 - Z13.6) Blood pressure stable. Can check for comorbidity of hyperlipidemia and hyperglycemia and use this data to further assess risk 07/09/2024 Encounter for immunization (ICD-10 - Z23) Vaccines up-to-date 07/09/2024 Encounter for antibody response examination (ICD-10 - Z01.84) Titers have been checked in the past and is immune to rubeola 07/09/2024 Encounter for screening for other viral diseases (ICD-10 - Z11.59) Can screen for hepatitis C as is the general recommendation 07/09/2024 Sensorineural hearing loss, bilateral (ICD-10 - H90.3) She knows she has hearing loss. Recommend hearing test at [place] to be able to procure lower cost hearing aids to help minimize risk of development of progression of dementia 12/27/2023 Other This note was created with voice dictation recognition software and may contain errors of grammar and syntax. Also labs were reviewed with patient. 07/09/2024 Other This note was created with voice dictation recognition software and may contain errors of grammar and syntax. Also labs were reviewed with patient. Plan Of Treatment Pending Test Test Name Order Date NEB/MDI RX DUONEB 04/21/2018 25OH VITAMIN D 11/25/2020 ACTH 06/04/2021 COMPLETE CBC WITH DIFF 11/25/2020 COMPLETE URINALYSIS 11/25/2020 COMPREHENSIVE METABOLIC PANEL 11/25/2020 LIPID PANEL W REFLEX TO DLDL 11/25/2020 MM Digital Mammo Screening 07/09/2024 CBC 05/26/2020 COMPREHENSIVE METABOLIC PANEL 05/26/2020 LIPID PROFILE 05/26/2020 URINALYSIS 05/26/2020 LYME C6 ANTIBODY-CURRENT 07/07/2020 LYME C6 ANTIBODY-CURRENT 08/25/2020 Urinalysis, Complete-[id number] 07/09/2024 CBC With Differential/Platelet-[id number] Vitamin D, 79-Bvezhvj-[id number] 07/09/2024 Albumin/Creatinine Ratio,Urine-[id number] Comp. Metabolic Panel ([id number] 2024 LP+Non-HDL Cholesterol-[id number] 07/09/2024 HCV Antibody-[id number] 07/09/2024 Next Appt Details Provider Name:Joan Gio , 01/07/2025 01:30:00 PM, [address] [place] [address], [phone], Provider Name:Joan Gio , 07/15/2025 01:00:00 PM, [address] [place] [address], [phone], Insurance Providers Payer Name Payer Address Payer Phone Subscriber Number Group Number Insured Name Patient Relationship to Insured Coverage Start Date Coverage End Date MEDICARE [address] [place] [phone] [id number] Viktoria Garcia Self - patient is the insured [employer] [address] [address] [place] [address] [id number] Viktoria Garcia Self - patient is [...]
--- OUTSIDE RECORDS SUMMARY | 2024-09-27 14:20 | XMS_ITS | Referral Summary ---
Author Organization [facility] Address [address] [place] [address] Care Team Providers Care Integrity Specialist Name Role Phone Joan Powers Primary Care Provider [phone] Social History Tobacco Use Types Packs/Day Years Used Date Smoking Tobacco: Never Assessed Comments Unknown Sex and Gender Information Value Date Recorded Sex Assigned at Not on file Legal Sex Female 12:02 AM EDT Gender Identity Not on file Sexual Orientation Not on file Plan of Treatment Not on file Insurance MEDICARE [facility] Care Teams Integrity Specialist Relationship Specialty Start Date End Date Joan Powers [address] [facility] [address] [facility] [place] [address] PCP - General 09/23/16
--- OUTSIDE RECORDS SUMMARY | 2024-09-27 14:20 | XMS_ITS | Clinical Summary ---
Author Organization [facility] Address [address] [place] [address] Care Team Providers Care Business Affairs Manager Name Role Phone Unknown, Primary Care [...] 1 - PCV) 10/23/2023 Influenza Vaccine (#1) 2024 RSV Adult > 60+ Yrs or Pregn [...] age to complete this topic Care Teams Business Affairs Manager Relationship Specialty Start Date End Date Unknown, PCP - General 06/30/22
--- OUTSIDE RECORDS SUMMARY | 2024-09-27 14:20 | XMS_ITS | Clinical Summary ---
Author Organization [facility] Address [address] [place] [id number] Phone Care Team Providers Care Tactical Response Group Officer Name Role Phone Oscar Powers MD Primary Care Provider [phone] Allergies Active Allergy Reactions Criticality Noted Date Comments Nizatidine Hives 12/21/2022 Ciprofloxacin 12/21/2022 Metoclopramide Hcl Hives 12/21/2022 Sulfa (Sulfonamide Antibiotics) 12/05 Bupropion Hcl Hives 12/21/2022 Ranitidine Hcl Hives 12/21/2022 Medications topiramate (TOPAMAX) 100 MG tablet Take 1 tablet by mouth every morning. 3 Active TYRVAYA 0.03 mg/spray sprm ONE SPRAY INTO EACH NOSTRIL TWICE A DAY 3 Active MOVANTIK 12.5 mg tablet Take 12.5 mg by mouth every morning. 3 Active albuterol 90 mcg/actuation inhaler Inhale 2 [...] for pain (specific location in comments). Active irbesartan (AVAPRO) 75 MG tablet Take 1 tablet by mouth every morning. 5 Active pantoprazole (PROTONIX) 40 MG tablet Take 1 tablet by mouth daily. 5 Active hydroxychloroquine (PLAQUENIL) 200 mg tabletIndications: Familial Mediterranean fever Take 1 tablet (200 mg total) by mouth every morning. 90 tablet 2 5 Active Active Problems Problem Noted Date Diagnosed [...] active to maintain her stamina and mobility. Family History Medical History Relation Comments Thyroid [...] with a working camera? Not on file Comments Unknown Sex and Gender Information Value Date Recorded Sex Assigned at Not on file Legal Sex Female 12:30 PM EDT Gender Identity Not on file Sexual Orientation Not on file Last Filed Vital Signs Vital Sign Reading Time Taken Comments Blood Pressure 116/60 06/18/2024 1:52 PM EDT Pulse 70 06/18/2024 1:52 PM EDT Temperature - - Respiratory Rate - - Oxygen Saturation 98% 06/18/2024 1:52 PM EDT Inhaled Oxygen Concentration - - Weight 70.3 kg (155 lb) 06/18/2024 1:52 PM EDT Height 152 cm (4' 11.84 ) 01/11/2023 2:08 PM EST Body Mass Index 30.43 01/11/2023 2:08 PM EST Plan of Treatment Health Maintenance Due Date Last Done Comments Adult Td,Tdap Booster 1958 LIPID PANEL 1958 POTASSIUM LEVEL 1958 DEPRESSION SCREENING 1970 HEPATITIS C SCREENING 1976 HIV ONE-TIME SCREENING (18-6 5 YEARS) 1976 SCREENING FOR DIABETES 1993 MAMMOGRAM 1998 COLOGUARD 10/23/2003 COLONOSCOPY 10/23/2003 COLORECTAL CANCER SCREENING 10/23/2003 FIT TEST 10/23/2003 FOBT 10/23/2003 SIGMOIDOSCOPY 10/23/2003 VIRTUAL COLONOSCOPY 10/23/2003 PNEUMOCOCCAL VACCINES (50+ years) (1 of 1 - PCV) 2008 ZOSTER VACCINES (1 of 2) 2008 OSTEOPOROSIS SCREENING INITI AL (ONE-TIME) 10/23/2023 COVID-19 VACCINE (4 - 2023-2 5 season) 2023 02/17/2021, 05/18/2020, 04/20/2020 CREATININE LEVEL 06/20/2025 06/20/2024 RSV VACCINE (1 - 1-dose 75+ series) 2033 SMOKING STATUS SCREENING (On ce After 26 Yrs) Completed 06/18/2024 HEPATITIS A VACCINES Aged Out No long er eligible based on patient's age to complete this topic HIB VACCINES Aged Out No longer eligi ble based on patient's age to complete this topic MENINGOCOCCAL VACCINES (ACWY) Aged Out No longer eligible based on patient's age to complete this topic MENINGOCOCCAL VACCINES (B) Aged Out N o longer eligible based on patient's age to complete this topic Medical Devices Not on file Procedures Procedure Name Priority Date/Time Associated Diagnosis Comments COMPREHENSIVE METABOLIC PANEL Routine 06/20/2024 9:51 AM EDT Familial Mediterranean fever Long-term use of Plaquenil from Last 3 Months or Most Recently Relevant to Health Maintenance Results * Comprehensive metabolic panel (06/20/2024 9:51 AM EDT) Blood us Rodolfo Burt MD LAB BLOOD ORDERABLES Final Res ult EXTERNAL NON-INTERFACED REF LAB from Last 3 Months or Most Recently Relevant to Health Maintenance Insurance [facility] MEDICARE SUPPLEMENT MEDICARE PART A & B [facility] MEDICARE SUPPLEMENT MEDICARE PART A & B MEDICARE PART A & B [facility] MEDICARE SUPPLEMENT MEDICARE PART A & B [employer] MEDICARE SUPPLEMENT MEDICARE PART A & B [employer] MEDICARE SUPPLEMENT MEDICARE PART A & B Care Teams Tactical Response Group Officer Relationship Specialty Start Date End Date Oscar Powers MD [address] [place] [phone] [email or web address] PCP - General Internal Medicine 09/21/22 Additional Source Comments The information contained in this document represents components of the legal health record. It is not the complete legal health record.[facility]
[2024-09-27 14:25] VITALS: BMI 29.7
== END 2024-09-27 14:50 | disposition home or self-care (01) ==
LOC: HO.HOS 14:17
PROVIDERS: PCP Internal Medicine; Visit Provider Orthopaedic Surgery
DX: M25.512 Pain in left shoulder (principal)
CPT/HCPCS: 99024

== ENCOUNTER → 2024-09-27 14:16 | Outpatient (BNVA) | payer MEDICARE, OTHER, SELFPAY | PROVIDERS: PCP Internal Medicine; Visit Provider Orthopaedic Surgery | DX: Z47.89 Encounter for other orthopedic aftercare (principal); M25.512 Pain in left shoulder | CPT/HCPCS: 99212 ==

== ENCOUNTER 2024-11-29 12:46 | Outpatient (AMB) | payer MEDICARE, OTHER, SELFPAY ==
[2024-11-29 13:23] VITALS: BMI 29.7
--- NOTE | 2024-11-29 13:23 | MHC.OFFVIS ---
Vital Signs 11/29/24 13:23 Height 4 ft 11 in Weight 147 lb BMI 29.7 Intake Visit Reasons: OV: LT shoulder & RTC 07/27/24 DR Intake Note: Viktoria is a 63 year old who presents with complaints of mild to moderate discomfort in her left shoulder after undergoing left shoulder rotator cuff repair surgery on 07/27/2024. She continues to go to formal physical therapy. She denies any fevers or chills. She also reports stiffness when moving her left hand behind her back. Allergies adhesive tape (ADHESIVE TAPE) Allergy (Intermediate, Verified 11/29/24 13:32) SKIN SENSITIVITY bupropion (From WELLBUTRIN) Allergy (Intermediate, Verified 11/29/24 13:32) HIVES ciprofloxacin (From CIPRO) Allergy (Intermediate, Verified 11/29/24 13:32) ACTIVATES LICHENS DISEASE metoclopramide (From REGLAN) Allergy (Intermediate, Verified 11/29/24 13:32) HIVES nizatidine (From AXID) Allergy (Intermediate, Verified 11/29/24 13:32) HIVES ranitidine (From ZANTAC) Allergy (Intermediate, Verified 11/29/24 13:32) HIVES sulfamethoxazole (From BACTRIM) Allergy (Intermediate, Verified 11/29/24 13:32) CONNOLLY ARCENIO SYNDROME trimethoprim (From BACTRIM) Allergy (Intermediate, Verified 11/29/24 13:32) CONNOLLY ARCENIO SYNDROME ALLEN Allergy (Intermediate, Uncoded 11/29/24 13:32) HIVES Medication List - Last Reconciled 11/29/24 by Roger Daley MD cholecalciferol (vitamin D3) (Vitamin D3) 150 mcg PO BEDTIME clobetasol 0.025% 1 appl topical ONCE fluticasone furoate 200 mcg/actuation (Arnuity Ellipta) 1 inh inhalation DAILY hydroxychloroquine (Plaquenil) 200 mg PO BEDTIME irbesartan 75 mg PO BEDTIME naloxegol (Movantik) 12.5 mg PO BEDTIME oxycodone 5 mg PO Q4H PRN pantoprazole 40 mg PO BEDTIME perfluorohexyloctane (PF) 100% (Miebo (PF)) 1 drp ophthalmic (eye) QID [Probiotic 1 gummy PO BEDTIME] topiramate 100 mg PO BEDTIME varenicline tartrate (Tyrvaya) 1 spray intranasal BID PFSH Medical History (Updated 08/09/24 @ 12:40 by Roger Daley MD) History of TMJ disorder Fuchs' corneal dystrophy of both eyes Sensorineural hearing loss (SNHL) of both ears Dyskinesia of esophagus Mixed hyperlipidemia Hypertensive chronic kidney disease 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 Migraines Esophageal dysmotility Osteoporosis Arthritis Vestibular dizziness Osteoarthritis GERD (gastroesophageal reflux disease) Dry eye FMF (familial Mediterranean fever) Seasonal allergies Asthma Murmur Orthostatic hypotension QUEENIE (obstructive sleep apnea) Vitamin D deficiency 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 Mild intermittent asthma Hx of migraines Laryngospasm Surgical History Hx of wisdom tooth extraction History of esophagogastroduodenoscopy (EGD) Hx of colonoscopy Hx of jejunostomy Hx of ventral hernia repair H/O repair of rotator cuff History of carpal tunnel surgery of right wrist History of Krystina fundoplication Hx of appendectomy Hx of LASIK Hx of gastrostomy History of bunionectomy Family History (Updated 07/13/24 @ 11:31 by Sandra Morrison RN) Brother Factor V Leiden mutation Social History Household Members: Spouse Household Members Other:: mother age 95 Are you a primary doggy daycare activities director to a significant other at home: Yes (mother) Do you presently have visiting nurse or other home services: No Patient Tobacco Use Status: Never used Tobacco Physical Exam Vital Signs: BMI result Body Mass Index 29.7 Const Other: Well-nourished well-developed very friendly female awake alert and oriented x3 in no acute distress Extrem Other: Bilateral lower extremity examination shows good capillary refill, no skin lesions noted, normal sensation light touch Left shoulder examination shows that the surgical incisions are well healed, no erythema, slightly decreased range of motion when compared to her right shoulder, minimal discomfort with resisted forward flexion, no discomfort with resisted internal or external rotation Assessment & Plan Assessment & Plan (1) Left shoulder pain: Code(s): M25.512 - Pain in left shoulder Category: Medical Plan Viktoria continues to do well after undergoing left shoulder rotator cuff repair surgery on 07/27/2024. She will continue going to formal physical therapy for now. She will gradually transition to a home exercise program. The do's and don'ts of lifting were discussed at length with the patient. She will contact me prior to her follow-up appointment in 3 months should any questions or concerns arise. Feel free to call me at any time should questions regarding her orthopedic management arise. I spent 20 minutes in reviewing the patient's records and imaging studies, seeing the patient and documenting in the medical record. Coding Level of Care Code Est Pt Level 3 (16713) Complex EM visit Add On G2211 Diagnoses Left shoulder pain M25.512
--- OUTSIDE RECORDS SUMMARY | 2024-11-29 17:32 | XMS_ITS ---
Author Name [facility] Organization Unknown Encounters Encounter Type Encounter Reason Primary Diagnosis Location Date Ambulatory [facility] 06/08/2024 Ambulatory [facility] 06/08/2024 Ambulatory [facility] 06/08/2024 Ambulatory [facility] [place] [facility] 06/08/2024
--- OUTSIDE RECORDS SUMMARY | 2024-11-29 17:32 | XMS_ITS | Patient Health Record ---
Author Organization [facility] Address [address] [place] [address] Care Team Providers Care Car Sales Consultant Name Role Phone Joan Powers MD Primary Care Provider Unavail able Black, Roxane Unavailable [phone] Allergies Allergen (clinical drug ingredient) Drug/Non Drug [...] Problem Acquired hammer toe of right foot ([id number] 105) Hammer toe of right foot (M20.41) Active confirmed Problem Complex regional pain syndrome (disorder) (406855290) CRPS (complex regional pain syndrome) (G90.50) Active confirmed Plan Of Treatment Pending Test Test Name Order Date X ray : Foot, right 3V 02/19/2016 X ray : Foot, right 3V 04/01/2016 X ray : Foot, right 3V 07/22/2016 X ray : Foot, right 3V 07/23/2021 X ray : Foot, right 3V 08/17/2021 [id number] Plate 07/22/2016 [id number] TENDON SHEATH/LIGAMENT 0 06/17/2016 Insurance Providers Payer Name Payer Address Payer Phone Subscriber Number Group Number Insured Name Patient Relationship to Insured Coverage Start Date Coverage End Date Medicare National [employer] [address] [place] [address] [id number] Viktoria Garcia Self - patient is the insured [employer] [address] [address] [place] [address] [phone] [id number] Viktoria Garcia Self - patient is the [...]
--- OUTSIDE RECORDS SUMMARY | 2024-11-29 17:33 | XMS_ITS | Clinical Summary ---
Author Organization [facility] Address [address] [place] [phone] Phone Care Team Providers Care Children'S Choir Director Name Role Phone Oscar Powers MD Primary Care Provider [phone] Allergies Active Allergy Reactions Criticality Noted Date [...] DEPRESSION SCREENING 1970 HEPATITIS C SCREENING 1976 SCREENING FOR DIABETES 1993 MAMMOGRAM 1998 COLOGUARD 10/23/2003 COLONOSCOPY 10/23/2003 COLORECTAL CANCER SCREENING 10/23/2003 FIT TEST 10/23/2003 FOBT 10/23/2003 SIGMOIDOSCOPY 10/23/2003 VIRTUAL COLONOSCOPY 10/23/2003 PNEUMOCOCCAL VACCINES (50+ years) (1 of 1 - PCV) 2008 ZOSTER VACCINES (1 of 2) 2008 OSTEOPOROSIS SCREENING INITIAL (ONE-TIME) 10/23/2023 INFLUENZA VACCINE (#1) 2024 , 12/20/2022, 01/25/2022, Additional history exists COVID-19 VACCINE ( - 2024- season) 2024 02/17/2021, 05/18/2020, 04/20/2020 CREATININE LEVEL 06/20/2025 06/20/2024 RSV VACCINE (1 - 1-dose 75+ series) 2033 SMOKING STATUS SCREENING (Once After 26 Yrs) Completed 06/18/2024 HEPATITIS A [...] Most Recently Relevant to Health Maintenance Insurance [facility] MEDICARE SUPPLEMENT MEDICARE PART A & B [facility] MEDICARE SUPPLEMENT MEDICARE PART A & B [facility] MEDICARE SUPPLEMENT MEDICARE PART A & B [facility] MEDICARE SUPPLEMENT MEDICARE PART A & B [employer] MEDICARE SUPPLEMENT MEDICARE PART A & B [employer] MEDICARE SUPPLEMENT MEDICARE PART A & B Care Teams Children'S Choir Director Relationship Specialty Start Date End Date Oscar Powers MD [address] [place] [phone] [email or web address] PCP - General Internal Medicine 09/21/22 Additional Source Comments The information contained in this document represents components of the legal health record. It is not the complete legal health record.[facility]
--- OUTSIDE RECORDS SUMMARY | 2024-11-29 17:33 | XMS_ITS | Patient Health Record ---
Author Organization [facility] Address [address] [place] [phone] Care Team Providers Care Industrial Order Clerk Name Role Phone Joan Powers Primary Care Provider Ella Olsen Unavailable [phone] Allergies Allergen (clinical drug ingredient) Drug/Non Drug [...] date:06/14/2024 10:46:13 AM Interpretation: Performing Lab: Notes/Report: Urinalysis, Complete-[id number] Reviewed date:12/28/2023 06:26:36 PM Interpretation: Performing Lab:[facility], [address] [place] [address], Phone - [phone], Director - Becky Notes/Report: Specific Christine 1.020 1.005-1.030 pH 5.5 5.0-7.5 Urine-Color Yellow [...] Bacteria None seen None seen/Few Vitamin D, 98-Vuriric-024727 Reviewed date:12/28/2023 06:26:36 PM Interpretation: Performing Lab:[facility] [place], [address] [place] [address], Phone - [phone], Director - Becky Notes/Report: Vitamin D, 25-Hydroxy 49.2 30.0-100.0 ng/mL Vitamin D deficiency has been defined by the [place] of Medicine and an Endocrine Society practice guideline as a level of serum 25-OH vitamin D less than 20 ng/mL (1,2). The Endocrine Society went on to further define vitamin D insufficiency as a level between 21 and 29 ng/mL (2). 1. IOM ([place] of Medicine). 2010. Dietary reference intakes for calcium and D. [place]: The National Academies Press. 2. Carla MF, Neri NC, Michelle MCLEOD, et al. Evaluation, treatment, and prevention of vitamin D deficiency: an Endocrine Society clinical practice guideline. JCEM. 2010; 96(7):1911-30. Albumin/Creatinine Ratio,Uri ne-117642 Reviewed date:12/28/2023 06:26:36 PM Interpretation: Performing Lab:[facility] [place], [address] [place] [address], Phone - [phone], Director - Becky Notes/Report: Creatinine, Urine 139.8 Not Estab. mg/dL Albumin, Urine 6.1 Not Estab. ug/mL Alb/Creat Ratio 4 0-29 mg/g creat Normal: 0 - 29 Moderately increased: 30 - 300 Severely increased: >300 Comp. Metabolic Panel (14)-[id number] Reviewed date:12/28/2023 06:26:36 PM Interpretation: Performing Lab:[facility] [place], [address] [place] [address], [place], Phone - [phone], Director - Becky Notes/Report: Glucose 97 70-99 [...] IU/L ALT (SGPT) 20 0-32 IU/L LP+Non-HDL Cholesterol-19617 5 Reviewed date:12/28/2023 06:26:36 PM Interpretation: Performing Lab:[facility], [address] [place] [address], [place], Phone - [phone], Director - Becky Notes/Report: Cholesterol, Total 234 100-199 mg/dL Triglycerides 78 0-149 mg/dL HDL Cholesterol 78 >39 mg/dL VLDL Cholesterol Shay 13 5-40 mg/dL LDL Chol Calc (NIH) 143 0-99 mg/dL Non-HDL Cholesterol 156 0-129 mg/dL Eye Exam Reviewed date:10/26/2024 11:56:48 AM Interpretation: Performing Lab: Notes/Report: CR Chest [...] and Electronically Signed by: Lenin Saavedra M.D. DC Bone and/or Joint Whole B kourtney Reviewed [...] anterior seventh rib fracture. Degenerative changes. WSN: [id number] Ordering Physician: Joan Powers Dictated By: Clovis Childs MD Dexa Bone Density (Axial) Reviewed date:01/20/2024 09:26:49 AM Interpretation: Performing Lab: Notes/Report: Reason For [...] Referring Provider Speciality Internal edicine Referred Provider Dangelo Woo Referred Provider Specialty Thoracic Yasmin daylin General Notes Jes JEWELL 05/2024 03:07:16 PM >faxedFANTA Giselle 09/26/2024 04:10:27 PM >notes in chart Referral [...] >updated Dr. Daley fax number and refaxed, GLENNALUCEROJes 09/26/2024 04:14:16 PM >note in chart Referral [...] 1 puff Inhalation Once a day Active Airsupra 90-80 MCG/ACT 2 puffs Inhalation Six times a day; Duration: 30 days As needed 08/03/2024 Active Irbesartan 75 MG TAKE 1 TABLET BY ALLISON TH EVERY DAY; Duration: 90 Active Movantik 12.5 MG 1 tablet in the morn ing Orally Once a day; Duration: 30 days Active Restasis 0.05 % 1 drop into affected eye Ophthalmic Twice a day Not-Taking Topiramate 100 MG TAKE 1 TABLET BY ALLISON TH EVERY DAY; Duration: 90 Active Tyrvaya 0.03 MG/ACT SPRAY 1 SPRAY INTO E ACH NOSTRIL TWICE A DAY; Duration: 60 Active Immunizations Vaccine Route Administration Date Status Comme nts *Szdtmsapk-Hwzovcl-Vulg Dose-65+ IM Intramuscular 12/27/2023 Administered *Influenza-Medicare-AS IM Intramuscular 12/06/2018 Adminis tered *Influenza-Medicare-AS IM Intramuscular 01/25/2022 Adminis tered *Influenza-Quadrivalent IM Intramuscular 12/20/2022 Admini stered *PREVNAR 20 IM Intramuscular 07/09/2024 Administered LAFHS-16-Maxpgau Vaccine Unknown 04/20/2020 Administere d LLJKY-59-Jrjvsbl Vaccine Unknown 05/18/2020 Administere d KREKI-29-Hxlxgoq Vaccine Unknown 02/17/2021 Administere d Influenza, seasonal, injectable, preservative free, 4 yrs and above IM Intramuscular 02/12/2016 Administered Fypproquw-1535-27 Afluria-Single IM Intramuscular 12/19/2017 Administered Ykjetjqup-6949-93 Afluria-Single Unknown 12/10/2019 Administered Influenza-Afluria (IIV4) IM [...] Status Risk Notes Problem Vitamin D deficiency (52155953) Vitamin D deficiency, unspecified (E55.9) Active confirmed Problem Mixed hyperlipidemia (629097749) Mixed hyperlipidemia (E78.2) Active confirmed Problem Chronic migraine without aura, non-intractable (987302046366190) Chronic migraine without aura, not intractable, without status migrainosus (G43.709) Active confirmed Problem Obstructive sleep apnea syndrome (93315635) Obstructive sleep apnea (adult) (pediatric) (G47.33) Active confirmed Problem Carpal tunnel syndrome (27334570) Carpal tunnel syndrome, unspecified upper limb (G56.00) Active confirmed Problem Sensorineural hearing loss of bilateral ears (disorder) (556567932) Sensorineural hearing loss, bilateral (H90.3) Active confirmed Problem Chronic kidney disease due to hypertension (395298258212444) Hypertensive chronic kidney disease with stage 1 through stage 4 chronic kidney disease, or unspecified chronic kidney disease (I12.9) Active confirmed Problem Orthostatic hypotension (51234023) Orthostatic hypotension (I95.1) Active confirmed Problem Mild intermittent asthma (199743879) Mild intermittent asthma, uncomplicated (J45.20) Active confirmed Problem Dyskinesia of esophagus (07240845) Dyskinesia of esophagus (K22.4) Active confirmed Problem Functional disorder of intestine (50789952) Functional intestinal disorder, unspecified (K59.9) Active confirmed Problem Polyarthritis (070172727) Polyarthritis, unspecified (M13.0) Active confirmed Problem Acquired hallux valgus (18263820) Hallux valgus (acquired), right foot (M20.11) Active confirmed Problem Non-traumatic partial tear of left rotator cuff (9837738161568844) Incomplete rotator cuff tear or rupture of left shoulder, not specified as traumatic (M75.112) Active confirmed Problem Osteoporosis (15005684) Other osteoporosis without current pathological fracture (M81.8) Active confirmed Problem Chronic kidney disease stage 2 (632512379) Chronic kidney disease, stage 2 (mild) (N18.2) Active confirmed Problem Family history of malignant neoplasm of gastrointestinal tract (867302787) Family history of malignant neoplasm of digestive organs (Z80.0) Active confirmed Problem Family history of malignant neoplasm of breast (095054089) Family history of malignant neoplasm of breast (Z80.3) Active confirmed Problem Gastrostomy present (345428327) Gastrostomy status (Z93.1) Active confirmed Problem 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 Problem Gastroesophageal reflux disease with esophagitis (disorder) (425247384) Gastro-esophageal reflux disease with esophagitis, without bleeding (K21.00) Active confirmed Vital Signs Heart Rate 74 /min 07/09/2024 Temperature 96.5 degrees Fahrenheit 07/09/2024 Blood pressure diastolic 66 mm Hg 07/09/2024 Oximetry 98 % 07/09/2024 Height 59.75 in 07/09/2024 Blood pressure systolic 116 mm Hg 07/09/2024 Weight 150 lbs 07/09/2024 BMI 29.54 kg/m2 07/09/2024 Encounters Encounter Location Date Provider Diagnosis Joan Powers MD [address] [id number] 01/02/2024 Joan Powers MD [address] [id number] 05/23/2024 Joan Powers Multiple fractures o f ribs, unspecified side, initial encounter for closed fracture S22.49XA Joan [facility] MD [address] [id number] 06/07/2024 Joan Powers Multiple fractures o f ribs, left side, sequela S22.42XS and Incomplete rotator cuff tear or rupture of left shoulder, not specified as traumatic M75.112 Joan Powers MD [address] [id number] 06/08/2024 Joan Powers MD [address] [id number] 07/17/2024 Joan Powers MD [address] [id number] 07/17/2024 Joan Powers MD [address] [id number] 07/18/2024 Joan Powers Mild intermittent asthma, uncomplicated J45.20 Joan Powers MD [address] [id number] 07/24/2024 Joan Powers MD [address] [id number] 11/10/2024 Joan Powers MD [address] [id number] 11/23/2024 Joan Powers MD [address] [id number] 05/17/2024 Ella Olsen Muscle spasm of back M62.830 ; Sprain of left rotator cuff capsule, initial encounter S43.422A and Other chest pain R07.89 Joan [facility] MD [address] [id number] 12/27/2023 Joan Powers Hypertensive chronic kidney disease [...] Encounter for immunization Z23 Joan Powers MD [address] [id number] 07/09/2024 Joan Powers Hypertensive chronic kidney disease [...] medical help or urgent care while in [place] and states that the pain has been [...] ribs, left side, sequela (ICD-10 - S22.42XS) 07/09/2024 Hypertensive chronic kidney disease with stage [...] paperwork that her is the healthcare proxy 07/18/2024 Mild intermittent asthma, uncomplicated (ICD-10 - [...] to a combination inhaler to meet Emily 2023 guidelines 12/27/2023 Periodic fever syndromes (ICD-10 - [...] is not using it at the moment. 12/27/2023 Chronic migraine without aura, not intractable, without status migrainosus (ICD-10 - G43.709) Continues to have occasional headaches but under fair control with current medical therapy 07/09/2024 Obstructive sleep apnea (adult) (pediatric) (ICD-10 - G47.33) Stable at present. 07/09/2024 Chronic migraine without aura, not intractable, without status migrainosus (ICD-10 - G43.709) Stable at present. She continues to have occasional headaches. Under fair control. 12/27/2023 Mixed hyperlipidemia (ICD-10 - E78.2) Fair control and prior labs reviewed. Fortunately her calcium score was 0 therefore at the present time this does not need immediate adjustment of her medical therapy 07/09/2024 Mixed hyperlipidemia (ICD-10 - E78.2) Stable at present. Her calculated cardiovascular risk is 6.74%. Eventually she will need to adjust medical therapy including statin therapy to help lower her rate of progression. 12/27/2023 Gastro-esophageal reflux disease with esophagitis, without bleeding (ICD-10 - K21.00) Stable and unchanged. Can continue chronic PPI therapy based on history of esophagitis 12/27/2023 Vitamin D deficiency, unspecified (ICD-10 - E55.9) Stable on prior labs as reviewed. Continue vitamin D supplementation for goal level of 30+ 07/09/2024 Gastro-esophageal reflux disease with esophagitis, without bleeding (ICD-10 - K21.00) Occasionally still problematic but stable with current PPI therapy 12/27/2023 Mild intermittent asthma with (acute) exacerbation (ICD-10 - J45.21) 07/09/2024 Vitamin D deficiency, unspecified (ICD-10 - E55.9) Stable on prior labs as reviewed. Recheck status and consider vitamin D supplementation for goal level of 30+ and if possible 50+ 12/27/2023 Encounter for immunization (ICD-10 - Z23) [...] has hearing loss. Recommend hearing test at [facility] to be able to procure lower cost [...] PROFILE 05/26/2020 URINALYSIS 05/26/2020 LYME C6 ANTIBODY-CURRENT 08/25/2020 LYME C6 ANTIBODY-CURRENT 07/07/2020 Urinalysis, Complete-[id number] 07/09/2024 CBC With Differential/Platelet-528653 Vitamin D, 56-Jlsmvso-688677 07/09/2024 Albumin/Creatinine Ratio,Urine-739614 Comp. Metabolic Panel ([id number] 2024 LP+Non-HDL Cholesterol-748926 07/09/2024 HCV Antibody-434118 07/09/2024 Next Appt Details Provider Name:Joan Powers , 01/07/2025 01:30:00 PM, [address] [place] [address], [phone], Provider Name:Lastекатерина Gio , 07/15/2025 01:00:00 PM, [address] [place] [address], [phone], Insurance Providers Payer Name Payer Address Payer Phone Subscriber Number Group Number Insured Name Patient Relationship to Insured Coverage Start Date Coverage End Date MEDICARE [address] [place] [phone] [id number] Salazar KailashViktoria andersen Self - patient is the insured [employer] [address] [address] [place] [address] [id number] Viktoria Garcia Self - patient is [...]
--- OUTSIDE RECORDS SUMMARY | 2024-11-29 17:33 | XMS_ITS | Clinical Summary ---
Author Organization [facility] Address [address] [place] [address] Care Team Providers Care Operational Review Sergeant Name Role Phone Joan Powers Primary Care Provider [phone] Social History Tobacco Use Types Packs/Day Years Used Date Smoking Tobacco: Never Assessed Comments Unknown Sex and Gender Information Value Date Recorded Sex Assigned at Not on file Legal Sex Female 12:02 AM EDT Gender Identity Not on file Sexual Orientation Not on file Plan of Treatment Health Maintenance Due Date Last Done Comments Cologuard 1958 Colon Cancer Screening 1958 Colonoscopy 1958 FOBT / Fit Test 1958 Sigmoidoscopy 1958 DTaP,Tdap,and Td Vaccines (1 - Tdap) 1980 Osteoporosis Screening 2008 Pneumococcal Vaccine: 50+ Years (1 of 1 - PCV) 2008 Zoster Vaccines (1 of 2) 2008 Alcohol/Substance Use Screening 03/07/2024 Health Care Proxy Review 03/07/2024 COVID-19 Vaccine ( - 2024- season) 2024 02/17/2021, 05/18/2020, 04/20/2020 Influenza Vaccine (#1) 2024 , 12/20/2022, 01/25/2022, Additional history exists RSV Vaccine (60+ years old and patients) (1 - 1-dose 75+ series) 2033 Hepatitis B Vaccines Aged Out No long er eligible based on patient's age to complete this topic Insurance MEDICARE [facility] Care Teams Operational Review Sergeant Relationship Specialty Start Date End Date Joan Powers [address] [facility] [address] [facility] [place] [address] PCP - General 09/23/16
--- OUTSIDE RECORDS SUMMARY | 2024-11-29 17:33 | XMS_ITS | Clinical Summary ---
Author Organization [facility] Address [address] [place] [address] Care Team Providers Care Etcher Electrolytic Name Role Phone Unknown, Primary Care Provider [...] Tdap / Td (1 - Tdap) 1977 Colon Cancer Screening (Colonoscopy) 10/23/2003 Breast Cancer [...] age to complete this topic Care Teams Etcher Electrolytic Relationship Specialty Start Date End Date Unknown, PCP - General 06/30/22
== END 2024-11-29 13:56 | disposition home or self-care (01) ==
LOC: HO.HOS 12:47
PROVIDERS: PCP Internal Medicine; Visit Provider Orthopaedic Surgery
DX: M25.512 Pain in left shoulder (principal)
CPT/HCPCS: 99213; G2211

== ENCOUNTER → 2024-11-29 12:46 | Outpatient (BNVA) | payer MEDICARE, OTHER, SELFPAY | PROVIDERS: PCP Internal Medicine; Visit Provider Orthopaedic Surgery | DX: M25.512 Pain in left shoulder (principal); Z98.890 Other specified postprocedural states | CPT/HCPCS: 99212 ==

== ENCOUNTER 2025-02-19 14:19 | Outpatient (AMB) | payer MEDICARE, OTHER, SELFPAY ==
--- NOTE | 2025-02-19 14:34 | MHC.OFFVIS ---
Vital Signs 02/19/25 14:38 Height 4 ft 11 in Weight 138 lb BMI 27.9 Intake Visit Reasons: OV: LT shoulder & RTC 07/27/24 DR Intake Note: Viktoria is a 63 year old who presents with complaints of mild to moderate discomfort in her left shoulder after undergoing left shoulder rotator cuff repair surgery on 07/27/2024. The patient continues with her home stretching program. She denies any fevers or chills. The patient states that she recently had an MRI of her lumbar spine. She reports back pain which radiates down her right leg as well as intermittent right leg weakness. She has not been seen by a back specialist. Allergies adhesive tape (ADHESIVE TAPE) Allergy (Intermediate, Verified 11/29/24 13:32) SKIN SENSITIVITY bupropion (From WELLBUTRIN) Allergy (Intermediate, Verified 11/29/24 13:32) HIVES ciprofloxacin (From CIPRO) Allergy (Intermediate, Verified 11/29/24 13:32) ACTIVATES LICHENS DISEASE metoclopramide (From REGLAN) Allergy (Intermediate, Verified 11/29/24 13:32) HIVES nizatidine (From AXID) Allergy (Intermediate, Verified 11/29/24 13:32) HIVES ranitidine (From ZANTAC) Allergy (Intermediate, Verified 11/29/24 13:32) HIVES sulfamethoxazole (From BACTRIM) Allergy (Intermediate, Verified 11/29/24 13:32) CONNOLLY ARCENIO SYNDROME trimethoprim (From BACTRIM) Allergy (Intermediate, Verified 11/29/24 13:32) CONNOLLY ARCENIO SYNDROME ALLEN Allergy (Intermediate, Uncoded 11/29/24 13:32) HIVES Medication List - Last Reconciled 02/19/25 by Roger Daley MD cholecalciferol (vitamin D3) (Vitamin D3) 150 mcg PO BEDTIME clobetasol 0.025% 1 appl topical ONCE fluticasone furoate 200 mcg/actuation (Arnuity Ellipta) 1 inh inhalation DAILY hydroxychloroquine (Plaquenil) 200 mg PO BEDTIME irbesartan 75 mg PO BEDTIME naloxegol (Movantik) 12.5 mg PO BEDTIME oxycodone 5 mg PO Q4H PRN pantoprazole 40 mg PO BEDTIME perfluorohexyloctane (PF) 100% (Miebo (PF)) 1 drp ophthalmic (eye) QID [Probiotic 1 gummy PO BEDTIME] topiramate 100 mg PO BEDTIME varenicline tartrate (Tyrvaya) 1 spray intranasal BID PFSH Medical History (Updated 02/19/25 @ 15:20 by Roger Daley MD) History of TMJ disorder Fuchs' corneal dystrophy of both eyes Sensorineural hearing loss (SNHL) of both ears Dyskinesia of esophagus Mixed hyperlipidemia Hypertensive chronic kidney disease 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 Migraines Esophageal dysmotility Osteoporosis Arthritis Vestibular dizziness Osteoarthritis GERD (gastroesophageal reflux disease) Dry eye FMF (familial Mediterranean fever) Seasonal allergies Asthma Murmur Orthostatic hypotension QUEENIE (obstructive sleep apnea) Vitamin D deficiency 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 Mild intermittent asthma Hx of migraines Laryngospasm Surgical History Hx of wisdom tooth extraction History of esophagogastroduodenoscopy (EGD) Hx of colonoscopy Hx of jejunostomy Hx of ventral hernia repair H/O repair of rotator cuff History of carpal tunnel surgery of right wrist History of Krystina fundoplication Hx of appendectomy Hx of LASIK Hx of gastrostomy History of bunionectomy Family History (Updated 07/13/24 @ 11:31 by Sandra Morrison RN) Brother Factor V Leiden mutation Social History Household Members: Spouse Household Members Other:: mother age 95 Are you a primary child care nurse to a significant other at home: Yes (mother) Do you presently have visiting nurse or other home services: No Patient Tobacco Use Status: Never used Tobacco Physical Exam Vital Signs: BMI result Body Mass Index 27.9 Extrem Other: Left shoulder examination shows that the surgical incisions are well healed, no erythema, slightly decreased range of motion when compared to her right shoulder, 5/5 strength with supraspinatus testing, no instability Assessment & Plan Assessment & Plan (1) Low back pain radiating to right leg: Code(s): M54.50 - Low back pain, unspecified; M79.604 - Pain in right leg Category: Medical Plan Ms. Martin Adkins is doing well after undergoing left shoulder rotator cuff repair surgery on 07/27/2024. She will continue with her home stretching program. The do's and don'ts of lifting were discussed at length with the patient. The patient recently had an MRI of her lumbar spine which shows evidence of lumbar stenosis. Thus, I will refer her to our neurosurgery department here at [facility] for further information regarding her treatment options. The patient will contact me prior to her follow-up appointment in 3 months should any questions or concerns arise. Feel free to call me at any time should questions regarding her orthopedic management arise. I spent 22 minutes in reviewing the patient's records and imaging studies, seeing the patient and documenting in the medical record. Orders: Referrals Neuro Spine Referral M54.50 - Low back pain, unspecified, M79.604 - Pain in right leg Coding Level of Care Code Est Pt Level 3 (21234) Add On Problem Visit Only Diagnoses Low back pain radiating to right leg M54.50; M79.604
[2025-02-19 14:38] VITALS: BMI 27.9
--- OUTSIDE RECORDS SUMMARY | 2025-02-19 18:35 | XMS_ITS | Patient Health Record ---
Author Organization [facility] Address [address] [place] [address] Care Team Providers Care Interventional Technologist Name Role Phone Joan Powers MD Primary Care Provider Unavail able Black, Roxane Unavailable [phone] Allergies Allergen (clinical drug ingredient) Drug/Non Drug [...] Problem Acquired hammer toe of right foot (2163804876022 105) Hammer toe of right foot (M20.41) Active confirmed Problem Complex regional pain syndrome (disorder) (246886653) CRPS (complex regional pain syndrome) (G90.50) Active confirmed Plan Of Treatment Pending Test Test Name Order Date X ray : Foot, right 3V 02/19/2016 X ray : Foot, right 3V 04/01/2016 X ray : Foot, right 3V 07/22/2016 X ray : Foot, right 3V 07/23/2021 X ray : Foot, right 3V 08/17/2021 33270-Wjquehgl Plate 07/22/2016 65103,[id number] TENDON SHEATH/LIGAMENT 0 06/17/2016 Insurance Providers Payer Name Payer Address Payer Phone Subscriber Number Group Number Insured Name Patient Relationship to Insured Coverage Start Date Coverage End Date Medicare National [employer] [address] [place] [address] [id number] Viktoria Garcia Self - patient is the insured [employer] [address] [address] [place] [address] [phone] [id number] Viktoria Garcia Self - patient is the [...]
--- OUTSIDE RECORDS SUMMARY | 2025-02-19 18:35 | XMS_ITS | Clinical Summary ---
Author Organization [facility] Address [address] [place] [id number] Phone Care Team Providers Care Tax Representative Name Role Phone Oscar Powers MD Primary Care Provider [phone] Allergies Active Allergy Reactions Criticality Noted Date [...] you interested in more education? Not on eknny e 09/21/2022 Are you concerned about learning? [...] Date/Time Associated Diagnosis Comments COMPREHENSIVE METABOLIC PANEL (CMP) Routine 06/20/2024 9:51 AM EDT Familial Mediterranean fever Long-term use of Plaquenil from Last 3 Months or Most Recently Relevant to Health Maintenance Results * Comprehensive metabolic panel (06/20/2024 9:51 AM EDT) Blood us Rodolfo Burt MD LAB BLOOD BKR ORDERABLES Final Result EXTERNAL NON-INTERFACED REF LAB from Last 3 Months or Most Recently Relevant to Health Maintenance Insurance [facility] MEDICARE SUPPLEMENT MEDICARE PART A & B [facility] MEDICARE SUPPLEMENT MEDICARE PART A & B [facility] MEDICARE SUPPLEMENT MEDICARE PART A & B [facility] MEDICARE SUPPLEMENT MEDICARE PART A & B [employer] MEDICARE SUPPLEMENT MEDICARE PART A & B [employer] MEDICARE SUPPLEMENT MEDICARE PART A & B Care Teams Tax Representative Relationship Specialty Start Date End Date Oscar Powers MD [address] [place] [phone] [email or web address] PCP - General Internal Medicine 09/21/22 Additional Source Comments The information contained in this document represents components of the legal health record. It is not the complete legal health record.[facility]
--- OUTSIDE RECORDS SUMMARY | 2025-02-19 18:35 | XMS_ITS | Clinical Summary ---
Author Organization [employer] [facility] ity Address [address] [place] [address] Care Team Providers Care Cabinet Professional Name Role Phone Joan Powers MD Primary Care Provider [phone] Medications pantoprazole (PROTONIX) 40 mg EC tabletIndication s:Gastroesophage al reflux disease without esophagitis TAKE 1 TABLET BY MOUTH EVERY DAY 90 tablet 11/21/2024 Active Surgical History Surgery Date Site/Laterality Comments [...] DX:Asthma 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 ([facility] V24, [facility] V28) DX: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 ease ([facility]) Bronchitis DX:Bronchitis Vitamin D deficiency [...] Last Done Comments Breast Cancer Screening 1958 Colorectal Cancer Screening: Colonoscopy 1958 COVID-19 Vaccine (#1) 10/23/1963 DTaP,Tdap,and Td Vaccines (1 - Tdap) 1977 Zoster Vaccines (1 of 2) 1977 Pneumococcal Vaccine: 50+ Ye ars (1 of 1 - PCV) 2008 Hepatitis C Screening 02/03/2022 Osteoporosis Screening (Bone [...] Documents on File Type Date Recorded Patient Servicer Travel Trailers Expl anation Health Care Decision (hx) 06/06/2014 AD BELLO DIRECTIVE Health Care Decision (hx) 06/06/2014 AD BELLO DIRECTIVE Health Care Decision (hx) 06/06/2014 AD BELLO DIRECTIVE Health Care Decision (hx) 06/06/2014 AD BELLO DIRECTIVE Health Care Decision (hx) 06/06/2014 AD BELLO DIRECTIVE Health Care Decision (hx) 06/06/2014 AD BELLO DIRECTIVE Health Care Decision (hx) 06/06/2014 AD BELLO DIRECTIVE Care Teams Cabinet Professional Relationship Specialty Start Date End Date Joan Powers MD [phone] (work) PCP - General Internal Medicine 11/14/17
--- OUTSIDE RECORDS SUMMARY | 2025-02-19 18:35 | XMS_ITS | Clinical Summary ---
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
--- OUTSIDE RECORDS SUMMARY | 2025-02-19 18:36 | XMS_ITS | Clinical Summary ---
Author Organization [facility] Address [address] [place] [address] Care Team Providers Care Order Expediter Name Role Phone Joan Powers Primary Care Provider [phone] Social History Tobacco Use Types Packs/Day Years [...] DTaP,Tdap,and Td Vaccines (1 - Tdap) 1980 Mammogram 1998 Osteoporosis Screening 2008 Pneumococcal Vaccine: 50+ Years (1 of 1 - PCV) 2008 Zoster Vaccines (1 of 2) 2008 Alcohol/Substance Use Screening 03/07/2024 Health Care Proxy Review 03/07/2024 Influenza Vaccine (#1) 2024 , 12/20/2022, 01/25/2022, Additional history exists COVID-19 Vaccine ( - 2024- season) 2024 02/17/2021, 05/18/2020, 04/20/2020 RSV Vaccine (60+ years old and patients) (1 - 1-dose 75+ series) 2033 Hepatitis B Vaccines Aged Out No long er eligible based on patient's age to complete this topic Insurance MEDICARE [facility] Care Teams Order Expediter Relationship Specialty Start Date End Date Joan Powers [address] [facility] [address] [facility] [place] [address] PCP - General 09/23/16
--- OUTSIDE RECORDS SUMMARY | 2025-02-19 18:36 | XMS_ITS | Patient Health Record ---
Author Organization [facility] Address [address] [place] [phone] Care Team Providers Care Superintendent Compressor Stations Name Role Phone Joan oPwers Primary Care Provider [phone] Ella Olsen Unavailable [phone] Allergies Allergen (clinical drug ingredient) Drug/Non Drug [...] e Results Component Value Reference Range Notes MR Shoulder Left Reviewed date:06/24/2024 03:26:25 PM [...] and Electronically Signed by: Lenin Saavedra M.D. Eye Exam Reviewed date:10/26/2024 11:56:48 AM Interpretation: Performing Lab: Notes/Report: NM Bone [...] anterior seventh rib fracture. Degenerative changes. WSN: [id number] Ordering Physician: Joan Powers Dictated By: [facility] CHRISTINA, Clovis ABRAHAM Bone Scan Three Phase Reviewed date:06/14/2024 10:46:13 AM Interpretation: Performing Lab: Notes/Report: MR Lumbar Reviewed date:02/10/2025 02:06:29 PM Interpretation: Performing Lab: Notes/Report: Original Report EXAM: MRI LUMBAR SPINE WITHOUT CONTRAST CLINICAL INFORMATION: Low back pain for 3.5 weeks TECHNICAL INFORMATION: 1. Sagittal and axial T1. 2. Sagittal and axial T2. 3. Sagittal STIR. SEDATION: None. COMPARISON: None. INTERPRETATION: The conus shows normal tapering and ends at L1. Included cord has normal internal signal and cauda equina is unremarkable. L5-S1: Disc height and hydration are preserved. There is left facet joint arthropathy without listhesis. No disc contour abnormality, spinal canal or foraminal stenosis is identified. L4-5: Mild disc degeneration. Mild right facet joint arthropathy without listhesis. No disc contour abnormality, spinal canal or foraminal stenosis is identified. L3-4: Mild disc degeneration with anterior osteophytosis. No disc contour abnormality, spinal canal or foraminal stenosis is identified. L2-3: Mild disc desiccation with preserved height. No disc contour abnormality, spinal canal or foraminal stenosis is identified. L1-2: Mild disc desiccation and moderate disc height loss. No disc contour abnormality, spinal canal or foraminal stenosis is identified. T12-L1: Disc height and hydration are preserved. No disc contour abnormality, spinal canal or foraminal stenosis is identified. Lumbar lordosis, vertebral body heights and marrow signal are within normal limits. There is right renal cyst. Paraspinous soft tissues are unremarkable. CONCLUSION: Facet joint arthropathy at L4-L5 and L5-S1 without listhesis. No evidence of neural impingement, significant central canal stenosis or neural foraminal narrowing. Read by: Abdulkadir Barreto M.D. Reviewed and Electronically Signed by: Abdulkadir Barreto M.D. MM Digital Mammo Screening Reviewed date:02/10/2025 02:06:29 PM Interpretation: Performing Lab: Notes/Report: PROCEDURE: MM Digital Mammo Screening INDICATION: Screening for breast cancer. No known palpable abnormalities. COMPARISON: [facility] dating back to 12/14/2021. TECHNIQUE: Full-field digital CC and MLO 3D [...] (Negative) Lay letter mailed to patient WSN: [id number] Ordering Physician: Joan Powers Dictated By: Katie Rico MD, I MR Shoulder LT WO Reviewed date:06/07/2024 01:27:45 PM Interpretation: Performing Lab: Notes/Report: CR Chest Routine 2 Views Reviewed date:05/23/2024 06:06:48 AM Interpretation: Performing Lab: Notes/Report: Reason For [...] >updated Dr. Daley fax number and refaxed, Jes JEWELL 09/26/2024 04:14:16 PM >note in chart Referral Priority Routine Medications Medication SIG (Take, Route, Frequency, Duration) Notes Start Date End Date Status Tyrvaya 0.03 MG/ACT SPRAY 1 SPRAY INTO EACH NOSTRIL TWICE A DAY; Duration: 60 Active Pantoprazole Sodium 40 MG 1 tablet 1/2 to 1 hour before morning meal Orally Once a day; Duration: 30 day(s) Active Miebo 1.338 GM/ML 1 drop into affected eye as needed Ophthalmic Four times a day Active Breyna 80-4.5 MCG/ACT 2 Puffs Inhalation every 6 hours; Duration: 90 days As needed 07/24/2024 01/02/2026 Active Arnuity Ellipta 200 MCG/ACT 1 puff Inhalation Once a day; Duration: 90 days Active Probiotic Active Flexeril Active Vitamin D 1000 UNIT 6 capsule Orally Onc e a day Active predniSONE Active Topiramate 100 MG TAKE 1 TABLET BY ALLISON TH EVERY DAY; Duration: 90 Active Plaquenil 200 MG 1 tablet with food o r milk Orally Once a day; Duration: 10 day(s) Active Restasis 0.05 % 1 drop into affected eye Ophthalmic Twice a day Not-Taking Irbesartan 75 MG TAKE 1 TABLET BY ALLISON TH EVERY DAY; Duration: 90 Active Movantik 12.5 MG 1 tablet in the morning Orally Once a day; Duration: 30 days 03/30/2025 Active Medrol 4 MG as directed Orally daily 01/28/2025 Active Immunizations Vaccine Route Administration Date Status Comme nts *Isbdaismw-Gqdbwoy-Wmtc Dose-65+ IM Intramuscular 12/27/2023 Administered *Gyxalafkk-Kvdwzet-Phkd Dose-65+ IM Intramuscular 01/22/2025 Administered *Influenza-Medicare-AS IM Intramuscular 12/06/2018 Adminis tered *Influenza-Medicare-AS IM Intramuscular 01/25/2022 Adminis tered *Influenza-Quadrivalent IM Intramuscular 12/20/2022 Admini stered *PREVNAR 20 IM Intramuscular 07/09/2024 Administered *Td (adult) preservative free Unknown 12/05/2000 Administered *Td (adult) preservative free Unknown 04/28/2010 Administered *Td (adult) preservative free IM Intramuscular 05/25/2019 Administered KXDZX-38-Dereuxu Vaccine Unknown 04/20/2020 Administere d AINBU-73-Nvzbjgq Vaccine Unknown 05/18/2020 Administere d LBZQO-09-Ppqhcbe Vaccine Unknown 02/17/2021 Administere d Influenza, seasonal, injectable, preservative free, 4 yrs and above IM Intramuscular 02/12/2016 Administered Szynvocqw-6975-50 Afluria-Single IM Intramuscular 12/19/2017 Administered Aswjvbltt-9364-20 Afluria-Single Unknown 12/10/2019 Administered Influenza-Afluria (IIV4) IM Intramuscular 12/21/2016 Admin istered Pneumococcal polysaccharide PPV23 IM Intramuscular 06/22/2016 Administered Social History Tobacco Use: Social History Observation Description Date Details (start date - stop date) Never Smoker NA - NA AUDIT-C (Standard) Question Answer Notes Did you have a drink containing alcohol in the p ast year? No Points 0 Interpretation Negative Tobacco Control (Standard) Question Answer Notes Tobacco use: Nonsmoker Section Notes: Tobacco use: Does not smoke Exercise habits: Continues walking and exercise Living situation: Lives with and cares for mother with psychosis Tobacco use: Does not smoke Exercise habits: Continues walking and exercise Living situation: Lives with and cares for mother with psychosis Problems Problem Type SNOMED Code ICD Code Onset Dates Problem Status W/U Status Risk Notes Problem Vitamin D deficiency (04251517) Vitamin D deficiency, unspecified (E55.9) Active confirmed Problem Mixed hyperlipidemia (650492229) Mixed hyperlipidemia (E78.2) Active confirmed Problem Chronic migraine without aura, non-intractable (074198933497688) Chronic migraine without aura, not intractable, without status migrainosus (G43.709) Active confirmed Problem Obstructive sleep apnea syndrome (03403219) Obstructive sleep apnea (adult) (pediatric) (G47.33) Active confirmed Problem Carpal tunnel syndrome (66458411) Carpal tunnel syndrome, unspecified upper limb (G56.00) Active confirmed Problem Sensorineural hearing loss of bilateral ears (disorder) (204467153) Sensorineural hearing loss, bilateral (H90.3) Active confirmed Problem Chronic kidney disease due to hypertension (834126552168353) Hypertensive chronic kidney disease with stage 1 through stage 4 chronic kidney disease, or unspecified chronic kidney disease (I12.9) Active confirmed Problem Orthostatic hypotension (94169214) Orthostatic hypotension (I95.1) Active confirmed Problem Mild intermittent asthma (837929000) Mild intermittent asthma, uncomplicated (J45.20) Active confirmed Problem Dyskinesia of esophagus (92609853) Dyskinesia of esophagus (K22.4) Active confirmed Problem Functional disorder of intestine (27591296) Functional intestinal disorder, unspecified (K59.9) Active confirmed Problem Polyarthritis (292887266) Polyarthritis, unspecified (M13.0) Active confirmed Problem Acquired hallux valgus (71358242) Hallux valgus (acquired), right foot (M20.11) Active confirmed Problem Displacement of lumbar intervertebral disc without myelopathy (83180315) Other intervertebral disc displacement, lumbar region (M51.26) Active confirmed Problem Non-traumatic partial tear of left rotator cuff (8724710993058033) Incomplete rotator cuff tear or rupture of left shoulder, not specified as traumatic (M75.112) Active confirmed Problem Osteoporosis (61162614) Other osteoporosis without current pathological fracture (M81.8) Active confirmed Problem Chronic kidney disease stage 2 (991351489) Chronic kidney disease, stage 2 (mild) (N18.2) Active confirmed Problem Family history of malignant neoplasm of gastrointestinal tract (971145055) Family history of malignant neoplasm of digestive organs (Z80.0) Active confirmed Problem Family history of malignant neoplasm of breast (174484025) Family history of malignant neoplasm of breast (Z80.3) Active confirmed Problem Gastrostomy present (778439870) Gastrostomy status (Z93.1) Active confirmed Problem 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 Problem Gastroesophageal reflux disease with esophagitis (disorder) (527823349) Gastro-esophageal reflux disease with esophagitis, without bleeding (K21.00) Active confirmed Vital Signs Heart Rate 71 /min 01/22/2025 Temperature 95.6 degrees Fahrenheit 01/22/2025 Blood pressure diastolic 80 mm Hg 01/07/2025 Oximetry 98 % 01/22/2025 Height 59.75 in 01/22/2025 Blood pressure systolic 140 mm Hg 01/07/2025 Weight 141.2 lbs 01/22/2025 BMI 27.8 kg/m2 01/22/2025 Encounters Encounter Location Date Provider Diagnosis Joan Powers MD [address] [place] [id number] 05/17/2024 Ella Olsen Muscle spasm of back M62.830 ; Sprain of left rotator cuff capsule, initial encounter S43.422A and Other chest pain R07.89 Joan Powers MD [address] [id number] 07/09/2024 Joan Powers Hypertensive chronic kidney disease [...] Z11.59 and Sensorineural hearing loss, bilateral H90.3 Joan Powers MD [address] [id number] 01/07/2025 Joan Powers Hypertensive chronic kidney disease with stage 1 through stage 4 chronic kidney disease, or unspecified chronic kidney disease I12.9 ; Chronic kidney disease, stage 2 (mild) N18.2 ; Mild intermittent asthma, uncomplicated J45.20 ; Periodic fever syndromes M04.1 ; Functional intestinal disorder, unspecified K59.9 ; Dyskinesia of esophagus K22.4 ; Gastro-esophageal reflux disease with esophagitis, without bleeding K21.00 ; Gastrostomy status Z93.1 ; Obstructive sleep apnea (adult) (pediatric) G47.33 ; Chronic migraine without aura, not intractable, without status migrainosus G43.709 ; Mixed hyperlipidemia E78.2 ; Vitamin D deficiency, unspecified E55.9 and Bitten or stung by nonvenomous insect and other nonvenomous arthropods, initial encounter W57.XXXA oJan Powers MD [address] [id number] 01/22/2025 Joan Powers Other intervertebral disc displacement, lumbar region M51.26 and Encounter for immunization Z23 Joan Powers MD [address] [id number] 05/23/2024 Joan Powers Multiple fractures o f ribs, unspecified side, initial encounter for closed fracture S22.49XA Joan Powers MD [address] [id number] 06/07/2024 oJan Powers Multiple fractures o f ribs, left side, sequela S22.42XS and Incomplete rotator cuff tear or rupture of left shoulder, not specified as traumatic M75.112 Joan Powers MD [address] [id number] 06/08/2024 Joan Powers MD [address] [id number] 07/17/2024 Joan Powers MD [address] [id number] 07/17/2024 Joan Powers MD [address] [id number] 07/18/2024 Joan Powers Mild intermittent asthma, uncomplicated J45.20 Joan JOHNSTON [address] [id number] 07/24/2024 Joan Powers MD [address] [id number] 01/21/2025 [facility] [address] [id number] 01/28/2025 [facility] [address] [id number] 02/10/2025 [facility] [address] [id number] 11/10/2024 Joan JOHNSTON [address] [id number] 11/23/2024 Joan Powers MD [address] [id number] 01/28/2025 Joan Powers Assessments Encounter Date Diagnosis (ICD Code) Assessment Notes Treatment Notes Treatment Clinical Notes Section Notes 05/17/2024 Muscle spasm of back (ICD-10 - M62.830) Reviewed with patient the fall that she sustained at the beginning of May while catching her mother. Patient did not seek medical help or urgent care while in [place] and states that the pain has been [...] paperwork that her is the healthcare proxy 01/07/2025 Hypertensive chronic kidney disease with stage 1 through stage 4 chronic kidney disease, or unspecified chronic kidney disease (ICD-10 - I12.9) Blood pressure measured at 140/80 in office, lower at home. Patient attributes elevated reading to stress and anxiety. Continues Irbesartan, reports good control at home.- Continued Irbesartan for blood pressure management.- Recommended home blood pressure monitoring. 01/07/2025 Chronic kidney disease, stage 2 (mild) (ICD-10 - N18.2) Recent labs show GFR in the 70s, consistent with CKD stage 2. Creatinine, albumin, calcium, potassium, and other labs stable. 01/22/2025 Other intervertebral disc displacement, lumbar region (ICD-10 - M51.26) She developed low back discomfort about a week ago. She does not recall any specific injury. This has persisted and she went to the emergency room where she had cursory evaluation and was treated for sciatica with prednisone and Flexeril. She has side effects of Flexeril which causes dry mouth and disorientation. The prednisone has not helped significantly. Given her findings recommend MRI to exclude disc displacement. She had an MRI about 5 years ago that did not show any significant stenosis nor arthritis therefore doubt that this is a arthritis based lumbar radiculopathy but given the weakness this is probably disc displacement. 01/22/2025 Encounter for immunization (ICD-10 - Z23) 01/07/2025 Mild intermittent asthma, uncomplicated (ICD-10 - J45.20) Asthma symptoms have worsened recently. Patient expresses dislike of inhalers and uncertainty about proper use. Continues to use annuity inhaler and budesonide/formote rol inhaler as needed. Updraft medication is . - Refilled annuity inhaler. - Refilled budesonide/formote rol inhaler. 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 She is otherwise doing okay 07/09/2024 Functional intestinal disorder, unspecified (ICD-10 - K59.9) Stable at present 07/09/2024 Dyskinesia of esophagus (ICD-10 - K22.4) Still intermittently present. She is otherwise doing okay 01/07/2025 Gastro-esophageal reflux disease with esophagitis, without bleeding (ICD-10 - K21.00) Occasionally still problematic but stable with current PPI therapy 01/07/2025 Gastrostomy status (ICD-10 - Z93.1) Patient has a gastrostomy tube, currently not using it. Experiences drainage and requires frequent bandage changes. Debating closure of tube due to persistent swallow issues and future concerns. 07/09/2024 Gastrostomy status (ICD-10 - Z93.1) She still has her gastrostomy in place. She is not using it at the moment. 01/07/2025 Obstructive sleep apnea (adult) (pediatric) (ICD-10 - G47.33) Stable at present. 07/09/2024 Obstructive sleep apnea (adult) (pediatric) (ICD-10 - G47.33) Stable at present. 07/09/2024 Chronic migraine without aura, not intractable, without status migrainosus (ICD-10 - G43.709) Stable at present. She continues to have occasional headaches. Under fair control. 01/07/2025 Chronic migraine without aura, not intractable, without status migrainosus (ICD-10 - G43.709) Chronic migraine managed with topiramate. Patient concerned about memory effects of topiramate. Discussed alternative treatments including Nurtec and Botox, patient prefers to avoid Botox. - Continued topiramate for migraine management. 01/07/2025 Mixed hyperlipidemia (ICD-10 - E78.2) Stable at present. Her calculated cardiovascular risk is 6.74%. 07/09/2024 Mixed hyperlipidemia (ICD-10 - E78.2) Stable at present. Her calculated cardiovascular risk is 6.74%. Eventually she will need to adjust medical therapy including statin therapy to help lower her rate of progression. 07/09/2024 Gastro-esophageal reflux disease with esophagitis, without bleeding (ICD-10 - K21.00) Occasionally still problematic but stable with current PPI therapy 01/07/2025 Vitamin D deficiency, unspecified (ICD-10 - E55.9) Vitamin D level at 49, reflecting adequate supplementation. Diet and supplements are sufficient. - Continued Vitamin D supplementation. 07/09/2024 Vitamin D deficiency, unspecified (ICD-10 - E55.9) Stable on prior labs as reviewed. Recheck status and consider vitamin D supplementation for goal level of 30+ and if possible 50+ 01/07/2025 Bitten or stung by nonvenomous insect and other nonvenomous arthropods, initial encounter (ICD-10 - W57.XXXA) Patient was bitten by two ticks, one deeply embedded. Expressed concern due to history of Lyme disease. Reported recent stiffness. - Prescribed doxycycline prophylactically for tick bites. 07/09/2024 Family history of malignant neoplasm of [...] has hearing loss. Recommend hearing test at [facility] to be able to procure lower cost hearing aids to help minimize risk of development of progression of dementia 07/09/2024 Other This note was created with voice dictation recognition software and may contain errors of grammar and syntax. Also labs were reviewed with patient. 01/07/2025 Other This note was created with a combination of voice dictation recognition software in combination with voice recognition software with AI as allowed by patient consent. It may contain errors of grammar and syntax. Also labs were reviewed with patient. 01/22/2025 Other This note was created with a combination of voice dictation recognition software in combination with voice recognition software with AI as allowed by patient consent. It may contain errors of grammar and syntax. [...] ANTIBODY-CURRENT 08/25/2020 LYME C6 ANTIBODY-CURRENT 07/07/2020 Urinalysis, Complete-[id number] 07/09/2024 CBC With Differential/Platelet-[id number] Vitamin D, 92-Pxadctp-[id number] 07/09/2024 Albumin/Creatinine Ratio,Urine-[id number] Comp. Metabolic Panel ([id number] 2024 LP+Non-HDL Cholesterol-[id number] 07/09/2024 HCV Antibody-[id number] 07/09/2024 Next Appt Details Provider Name:Joan Gio , 07/15/2025 01:00:00 PM, [address] [place] [address], [place] [address], [place], [place], [phone], Insurance Providers Payer Name Payer Address Payer Phone Subscriber Number Group Number Insured Name Patient Relationship to Insured Coverage Start Date Coverage End Date MEDICARE [address] [place] [address] [id number] Viktoria Garcia Self - patient is the insured [facility] [address] [address] [place] [address] [id number] Viktoria Garcia Self - patient is [...] repair b/l Ventral Hernia Repair TJM b/l Hernia repair, performed by dr. hamilton, date not specified Hospitalization History Reason Date(Month/Year)
== END 2025-02-19 15:21 | disposition home or self-care (01) ==
LOC: HO.HOS 14:20
PROVIDERS: PCP Internal Medicine; Visit Provider Orthopaedic Surgery
DX: M54.50 Low back pain, unspecified (principal); M79.604 Pain in right leg
CPT/HCPCS: 99213; G2211

== ENCOUNTER → 2025-02-19 14:19 | Outpatient (BNVA) | payer MEDICARE, OTHER, SELFPAY | PROVIDERS: PCP Internal Medicine; Visit Provider Orthopaedic Surgery | DX: M54.50 Low back pain, unspecified (principal); M79.604 Pain in right leg; M25.512 Pain in left shoulder | CPT/HCPCS: 99212 ==

== ENCOUNTER 2025-03-04 09:36 | Outpatient (AMB) | payer MEDICARE, OTHER, SELFPAY ==
--- NOTE | 2025-03-04 09:59 | HO.SPINEOV ---
Vital Signs 03/04/25 10:16 Height 4 ft 11 in Weight 139 lb BMI 28.1 Intake Visit Reasons: low back pain Intake Note: Ms. Martin Adkins is here today c/o low back pain. MRI done at [facility]. 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: No Allergies adhesive tape (ADHESIVE TAPE) Allergy (Intermediate, Verified 03/04/25 10:17) SKIN SENSITIVITY bupropion (From WELLBUTRIN) Allergy (Intermediate, Verified 03/04/25 10:17) HIVES ciprofloxacin (From CIPRO) Allergy (Intermediate, Verified 03/04/25 10:17) ACTIVATES LICHENS DISEASE metoclopramide (From REGLAN) Allergy (Intermediate, Verified 03/04/25 10:17) HIVES nizatidine (From AXID) Allergy (Intermediate, Verified 03/04/25 10:17) HIVES ranitidine (From ZANTAC) Allergy (Intermediate, Verified 03/04/25 10:17) HIVES sulfamethoxazole (From BACTRIM) Allergy (Intermediate, Verified 03/04/25 10:17) CONNOLLY ARCENIO SYNDROME trimethoprim (From BACTRIM) Allergy (Intermediate, Verified 03/04/25 10:17) CONNOLLY ARCENIO SYNDROME ALLEN Allergy (Intermediate, Uncoded 11/29/24 13:32) HIVES Physical Exam Vital Signs: BMI result Body Mass Index 28.1 Assessment & Plan Assessment & Plan (1) Low back pain radiating to right leg: Code(s): M54.50 - Low back pain, unspecified; M79.604 - Pain in right leg Category: Medical Plan Dear Dr almaraz, Thank you for referring Mrs Martin Adkins to our office today. She is a very nice 64-year-old female who awoke on January 26 with severe pain in the right side of her low back as well as pain shooting down her leg. 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 She went to the emergency room, was given a cocktail of medications including Percocet Flexeril and prednisone, but the prednisone was the main thing that helped her. She got another dose from her primary care physician. She seems to be recovering. She is back to doing a lot of the farm activities but she just go slowly and progresses as she tolerates. She tried doing physical therapy exercises but only seemed to make things worse. She takes Tylenol. She had a lumbar MRI showing some mild facet arthropathy and various findings and came today to get an update on status of her back. PMH: Hypertension, asthma, COPD, FMF, GERD, dysmotility, J-tube stoma, bunion surgery, LASIK bilaterally Krystina fundoplication, migraines, neuropathy, sleep apnea, chronic regional pain syndrome, tardive dyskinesia from nortriptyline Social hx: She has not smoke Medications: Air losartan, Movantik, pantoprazole, Topamax, hydroxychloroquine, [place], vitamin D3, Miebo Allergies: Please see the [employer] list Physical exam: Awake alert oriented no acute distress, able to stand out of a chair ambulate slightly hesitant because of pain in the low back, but strength and reflexes are normal. Imaging review: [facility] shows normal alignment of the spine, excellent quality of her discs with basically normal disc height. There is no signs of disc herniation, fracture, subluxation etc.. There is no evidence of any nerve impingement. There is some mild facet arthropathy. Impression: 64-year-old female presents with what sounds like a lumbar strain/muscular pain in her low back, that she awoke with in January. It seems to be getting better. Her MRI is very reassuring, just some very mild degenerative changes. 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 I think this will resolve on its own. She will come back to see me if something changes down the road. Thank you for allowing us to care for your patient. The total time spent with this visit with this patient was 45 minutes reviewing history, physical exam, lumbar imaging review, and implementation of treatment plan or further diagnostic testing Blake Hagan MD,PhD [facility] Coding Level of Care Code New Pt Level 4 (39243) Diagnoses Low back pain radiating to right leg M54.50; M79.604
--- OUTSIDE RECORDS SUMMARY | 2025-03-04 10:12 | XMS_ITS | Clinical Summary ---
Author Organization [employer] [facility] ity Address [address] [place] [address] Care Team Providers Care Certified Phlebotomist Name Role Phone Joan Powers MD Primary Care Provider [phone] Medications pantoprazole (PROTONIX) 40 mg EC tabletIndication s:Gastroesophage al reflux disease without esophagitis TAKE 1 TABLET BY MOUTH EVERY DAY 90 tablet 11/21/2024 Active Surgical History Surgery Date Site/Laterality Comments APPENDECTOMY PROCEDURE: OK APPENDECTOMY BUNIONECTOMY PROCEDURE: BUNION SURGERY, SIMPLE REMOVAL OTHER SURGICAL HISTORY PROCEDURE: OK LAPS SURG GASTROSTOMY W/O CONSTJ GSTR TUBE SPX CARPAL TUNNEL RELEASE PROCEDURE: HISTORICAL CARPAL TUNNEL REL HERNIA REPAIR PROCEDURE: HISTORICAL HERNIA REPAIR/FRANCINE ROTATOR CUFF REPAIR PROCEDURE: HISTORICAL ROTATOR CUFF REPAIR Medical History Medical History Date Comments Laryngospasm DX:Laryngospasm Headache, migraine DX:Headache, migraine Asthma DX:Asthma 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 ([facility] V24, [facility] V28) DX: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 ease ([facility]) Bronchitis DX:Bronchitis Vitamin D deficiency DX:Vitamin [...] Documents on File Type Date Recorded 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
--- OUTSIDE RECORDS SUMMARY | 2025-03-04 10:13 | XMS_ITS | Clinical Summary ---
Author Organization [facility] Prior to 08/04/[address] [place] [address] Care Team Providers Care Clinical Quality Rn Name Role Phone Unknown, Primary Care Provider [...] age to complete this topic Care Teams Clinical Quality Rn Relationship Specialty Start Date End Date Unknown, PCP - General 06/30/22
--- OUTSIDE RECORDS SUMMARY | 2025-03-04 10:13 | XMS_ITS | Clinical Summary ---
Author Organization [facility] Address [address] [place] [phone] Phone Care Team Providers Care Footwear Production Machine Operator Name Role Phone Oscar Powers MD Primary Care Provider [phone] Allergies Active Allergy Reactions Criticality Noted Date [...] Most Recently Relevant to Health Maintenance Insurance [facility] MEDICARE SUPPLEMENT MEDICARE PART A & B [facility] MEDICARE SUPPLEMENT MEDICARE PART A & B [facility] MEDICARE SUPPLEMENT MEDICARE PART A & B [facility] MEDICARE SUPPLEMENT MEDICARE PART A & B [employer] MEDICARE SUPPLEMENT MEDICARE PART A & B [employer] MEDICARE SUPPLEMENT MEDICARE PART A & B Care Teams Footwear Production Machine Operator Relationship Specialty Start Date End Date Oscar Powers MD [address] [place] [id number] [email or web address] PCP - General Internal Medicine 09/21/22 Additional Source Comments The information contained in this document represents components of the legal health record. It is not the complete legal health record.[facility]
--- OUTSIDE RECORDS SUMMARY | 2025-03-04 10:13 | XMS_ITS | Patient Health Record ---
Author Organization [facility] Address [address] [place] [phone] Care Team Providers Care Inspector And Clipper Name Role Phone Joan Powers Primary Care Provider [phone] Ella Olsen Unavailable [phone] Allergies Allergen (clinical drug ingredient) Drug/Non Drug [...] e Results Component Value Reference Range Notes CR Chest Routine 2 Views Reviewed date:05/23/2024 06:06:48 AM Interpretation: Performing Lab: Notes/Report: MR Shoulder LT WO Reviewed date:06/07/2024 01:27:45 PM Interpretation: Performing Lab: Notes/Report: NM Bone Scan Three Phase Reviewed date:06/14/2024 10:46:13 AM Interpretation: Performing Lab: Notes/Report: Eye Exam Reviewed date:10/26/2024 11:56:48 AM Interpretation: Performing Lab: Notes/Report: MR Lumbar [...] breast cancer. No known palpable abnormalities. COMPARISON: [facility] dating back to 12/14/2021. TECHNIQUE: Full-field [...] (Negative) Lay letter mailed to patient WSN: [id number] Ordering Physician: Joan Powers Dictated By: Katie Rico MD Bone and/or Joint Whole B kourtney Reviewed [...] anterior seventh rib fracture. Degenerative changes. WSN: [id number] Ordering Physician: Joan Powers Dictated By: [facility] CHRISTINA, Clovis Culver MR Shoulder Left Reviewed date:06/24/2024 03:26:25 PM [...] and Electronically Signed by: Lenin Saavedra M.D. Reason For Referral Reason Fourth and seventh [...] Notes Jes JEWELL 05/2024 03:07:16 PM [facility]26/2024 04:10:27 PM >notes in chart Referral [...] General Notes Jes JEWELL 05/2024 03:07:47 PM >[facility] 06/08/2024 09:03:37 AM >updated Dr. Daley fax [...] needed Ophthalmic Four times a day Active Arnuity Ellipta 200 MCG/ACT [...] ALLISON TH EVERY DAY; Duration: 90 Active Symbicort 80-4.5 MCG/ACT 2 puffs Inhalation every 6 hours; Duration: 30 days As needed 02/21/2025 08/20/2025 Active Movantik 12.5 MG 1 tablet in the morning Orally Once a day; Duration: 30 days 03/30/2025 Active Medrol 4 MG as directed Orally daily 01/28/2025 Active Immunizations Vaccine Route Administration Date Status Comme nts Pneumococcal polysaccharide PPV23 IM Intramuscular 06/22/2016 Administered Influenza-Afluria (IIV4) IM Intramuscular 12/21/2016 Admin istered Ksbkfbpgy-0470-02 Afluria-Single IM Intramuscular 12/19/2017 Administered Dclizbrtf-7172-50 Afluria-Single Unknown 12/10/2019 Administered Influenza, seasonal, injectable, preservative free, 4 yrs and above IM Intramuscular 02/12/2016 Administered KNFKR-53-Vntscca Vaccine Unknown 04/20/2020 Administere d QTQCS-49-Nibayzu Vaccine Unknown 05/18/2020 Administere d JVMPO-30-Idpvtgi Vaccine Unknown 02/17/2021 Administere d *Td (adult) preservative free Unknown 12/05/2000 Administered *Td (adult) preservative free Unknown 04/28/2010 Administered *Td (adult) preservative free IM Intramuscular 05/25/2019 Administered *PREVNAR 20 IM Intramuscular 07/09/2024 Administered *Influenza-Quadrivalent IM Intramuscular 12/20/2022 Admini stered *Influenza-Medicare-AS IM Intramuscular 12/06/2018 Adminis tered *Influenza-Medicare-AS IM Intramuscular 01/25/2022 Adminis tered *Ylareagxt-Zvszuul-Toqw Dose-65+ IM Intramuscular 12/27/2023 Administered *Qaugzk[place]-Ugzgdol-Kbvy Dose-65+ IM Intramuscular 01/22/2025 Administered Social History Tobacco Use: Social History [...] Status Risk Notes Problem Vitamin D deficiency (06129680) Vitamin D deficiency, unspecified (E55.9) Active confirmed Problem Mixed hyperlipidemia (349141982) Mixed hyperlipidemia (E78.2) Active confirmed Problem Chronic migraine without aura, non-intractable (056980776631231) Chronic migraine without aura, not intractable, without status migrainosus (G43.709) Active confirmed Problem Obstructive sleep apnea syndrome (32776869) Obstructive sleep apnea (adult) (pediatric) (G47.33) Active confirmed Problem Carpal tunnel syndrome (68829188) Carpal tunnel syndrome, unspecified upper limb (G56.00) Active confirmed Problem Sensorineural hearing loss of bilateral ears (disorder) (668476997) Sensorineural hearing loss, bilateral (H90.3) Active confirmed Problem Chronic kidney disease due to hypertension (719528914802233) Hypertensive chronic kidney disease with stage 1 through stage 4 chronic kidney disease, or unspecified chronic kidney disease (I12.9) Active confirmed Problem Orthostatic hypotension (51906454) Orthostatic hypotension (I95.1) Active confirmed Problem Mild intermittent asthma (040196376) Mild intermittent asthma, uncomplicated (J45.20) Active confirmed Problem Dyskinesia of esophagus (88019315) Dyskinesia of esophagus (K22.4) Active confirmed Problem Functional disorder of intestine (60741595) Functional intestinal disorder, unspecified (K59.9) Active confirmed Problem Polyarthritis (465157223) Polyarthritis, unspecified (M13.0) Active confirmed Problem Acquired hallux valgus (19725280) Hallux valgus (acquired), right foot (M20.11) Active confirmed Problem Displacement of lumbar intervertebral disc without myelopathy (70995976) Other intervertebral disc displacement, lumbar region (M51.26) Active confirmed Problem Non-traumatic partial tear of left rotator cuff (4712876899851275) Incomplete rotator cuff tear or rupture of left shoulder, not specified as traumatic (M75.112) Active confirmed Problem Osteoporosis (99279917) Other osteoporosis without current pathological fracture (M81.8) Active confirmed Problem Chronic kidney disease stage 2 (210747576) Chronic kidney disease, stage 2 (mild) (N18.2) Active confirmed Problem Family history of malignant neoplasm of gastrointestinal tract (725229415) Family history of malignant neoplasm of digestive organs (Z80.0) Active confirmed Problem Family history of malignant neoplasm of breast (542431235) Family history of malignant neoplasm of breast (Z80.3) Active confirmed Problem Gastrostomy present (924340230) Gastrostomy status (Z93.1) Active confirmed Problem 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 confirmed Problem Gastroesophageal reflux disease with esophagitis (disorder) (925982829) Gastro-esophageal reflux disease with esophagitis, without bleeding (K21.00) Active confirmed Vital Signs Heart Rate 71 /min 01/22/2025 Temperature 95.6 degrees Fahrenheit 01/22/2025 Blood pressure diastolic 80 mm Hg 01/07/2025 Oximetry 98 % 01/22/2025 Height 59.75 in 01/22/2025 Blood pressure systolic 140 mm Hg 01/07/2025 Weight 141.2 lbs 01/22/2025 BMI 27.8 kg/m2 01/22/2025 Encounters Encounter Location Date Provider Diagnosis Joan Powers MD [address] [place] [address] [id number] 05/17/2024 Ella Olsen Muscle spasm of back M62.830 ; Sprain of left rotator cuff capsule, initial encounter S43.422A and Other chest pain R07.89 Joan Powers MD [address] [id number] 07/09/2024 Joan Powers Hypertensive chronic kidney disease [...] hearing loss, bilateral H90.3 Joan Powers MD [address] [id number] 01/07/2025 Joan Powers Hypertensive chronic kidney disease [...] and other nonvenomous arthropods, initial encounter W57.XXXA Joan Powers MD [address] [id number] 01/22/2025 Joan Powers Other intervertebral disc displacement, lumbar region M51.26 and Encounter for immunization Z23 Joan Powers MD [address] [id number] 05/23/2024 Joan Powers Multiple fractures o f ribs, unspecified side, initial encounter for closed fracture S22.49XA Joan Powers MD [address] [id number] 06/07/2024 Joan Powers Multiple fractures o f ribs, left side, sequela S22.42XS and Incomplete rotator cuff tear or rupture of left shoulder, not specified as traumatic M75.112 Joan Powers MD [address] [id number] 06/08/2024 Joan Powers MD [address] [id number] 07/17/2024 Joan Powers MD [address] [id number] 07/17/2024 Joan Powers MD [address] [id number] 07/18/2024 Joan Powers Mild intermittent asthma, uncomplicated J45.20 Joan JOHNSTON [address] [place] [address] [id number] 07/24/2024 Joan Powers MD [address] [id number] 01/21/2025 Joan Powers MD [address] [id number] 01/28/2025 Joan Powers MD [address] [id number] 02/10/2025 Joan Powers MD [address] [id number] 02/20/2025 Joan Powers Mild intermittent asthma, uncomplicated J45.20 Joan Powers MD [address] [id number] 11/10/2024 Joan Powers MD [address] [facility] [address] [place] [address] [id number] 11/23/2024 Joan Powers MD [address] [id number] 01/28/2025 Joan Powers Assessments Encounter Date Diagnosis (ICD Code) Assessment Notes Treatment Notes Treatment Clinical Notes Section Notes 05/17/2024 Muscle spasm of back (ICD-10 - M62.830) Reviewed with patient the fall that she sustained at the beginning of May while catching her mother. Patient did not seek medical help or urgent care while in [place] and states that the pain has been [...] the weakness this is probably disc displacement. 02/20/2025 Mild intermittent asthma, uncomplicated (ICD-10 - J45.20) 01/22/2025 Encounter for immunization (ICD-10 - Z23) [...] has hearing loss. Recommend hearing test at [facility] to be able to procure lower cost [...] ANTIBODY-CURRENT 08/25/2020 LYME C6 ANTIBODY-CURRENT 07/07/2020 Urinalysis, Complete-[id number] 07/09/2024 CBC With Differential/Platelet-[id number] Vitamin D, 54-Nezootz-391525 07/09/2024 Albumin/Creatinine Ratio,Urine-019230 Comp. Metabolic Panel [phone] 2024 LP+Non-HDL Cholesterol-468828 07/09/2024 HCV Antibody-[id number] 07/09/2024 Next Appt Details Provider Name:Joan Powers , 07/15/2025 01:00:00 PM, [address] [place] [address], [place] [address], [place], [place], [phone], Insurance Providers Payer Name Payer Address Payer Phone Subscriber Number Group Number Insured Name Patient Relationship to Insured Coverage Start Date Coverage End Date MEDICARE [address] [place] [phone] [id number] Viktoria Garcia Self - patient is the insured [employer] [address] [address] [place] [address] [id number] Viktoria Garcia Self - patient is [...]
--- OUTSIDE RECORDS SUMMARY | 2025-03-04 10:13 | XMS_ITS | Patient Health Record ---
Author Organization [facility] Address [address] [facility] [place] [address] Care Team Providers Care Drawbridge Tender Name Role Phone Joan Powers MD Primary Care Provider Unavail able Black, Roxane Unavailable [phone] Allergies Allergen (clinical drug ingredient) Drug/Non Drug [...] Problem Acquired hammer toe of right foot (1286472212805 105) Hammer toe of right foot (M20.41) Active confirmed Problem Complex regional pain syndrome (disorder) (908052284) CRPS (complex regional pain syndrome) (G90.50) Active confirmed Plan Of Treatment Pending Test Test Name Order Date X ray : Foot, right 3V 02/19/2016 X ray : Foot, right 3V 04/01/2016 X ray : Foot, right 3V 07/22/2016 X ray : Foot, right 3V 07/23/2021 X ray : Foot, right 3V 08/17/2021 00134-Nkbfasqa Plate 07/22/2016 60550,[id number] TENDON SHEATH/LIGAMENT 0 06/17/2016 Insurance Providers Payer Name Payer Address Payer Phone Subscriber Number Group Number Insured Name Patient Relationship to Insured Coverage Start Date Coverage End Date Medicare National [employer] [address] [place] [address] [id number] Viktoria Garcia Self - patient is the insured [employer] [address] [address] [place] [address] [phone] [id number] Viktoria Garcia Self - patient is the [...]
--- OUTSIDE RECORDS SUMMARY | 2025-03-04 10:13 | XMS_ITS | Clinical Summary ---
Author Organization [facility] Address [address] [place] [address] Care Team Providers Care Hide Dropper Name Role Phone Joan Powers Primary Care Provider [phone] Social History Tobacco Use Types Packs/Day Years [...] age to complete this topic Insurance MEDICARE [facility] Care Teams Hide Dropper Relationship Specialty Start Date End Date Joan Powers [address] [facility] [address] [facility] [place] [address] PCP - General 09/23/16
[2025-03-04 10:16] VITALS: BMI 28.1
== END 2025-03-04 10:49 | disposition home or self-care (01) ==
LOC: HO.HNS 09:36
PROVIDERS: PCP Internal Medicine; Referring Provider Orthopaedic Surgery; Visit Provider Physician Assistant
DX: M54.50 Low back pain, unspecified (principal); M79.604 Pain in right leg
CPT/HCPCS: 99204

== ENCOUNTER → 2025-03-04 09:36 | Outpatient (BNVA) | payer MEDICARE, OTHER, SELFPAY | PROVIDERS: PCP Internal Medicine; Referring Provider Orthopaedic Surgery; Visit Provider Physician Assistant | DX: M54.50 Low back pain, unspecified (principal); M79.604 Pain in right leg | CPT/HCPCS: 99202 ==